=== PATIENT | female | born 1950 | race Two or more races ===

== ENCOUNTER 2020-01-16 07:00 | Outpatient (REF) | payer MEDICARE, SELFPAY ==
[2020-01-16 07:53] LABS: Hematocrit 35.6 % (37-47); Hemoglobin 11.5 g/dl (12.0-16.0); Mean Corpuscular HGB Conc 32.3 g/dl (31.0-35.0); Mean Corpuscular Hemoglobin 29.4 pg (27.0-33.0); Mean Platelet Volume 9.7 fL (9.4-12.3); Platelet Count 332 X10*3/uL (160-400); Red Blood Count 3.91 X10*6/uL (4.20-5.50); Red Cell Distribution Width 12.6 % (11.0-16.0); White Blood Count 6.6 X10*3/uL (4.8-10.8)
[2020-01-16 08:06] LABS: Estimated Average Glucose 128 mg/dL; Hemoglobin A1c % 6.1 %
[2020-01-16 08:23] LABS: Alanine Aminotransferase 12 U/L (0-31); Albumin Level 4.3 g/dL (3.5-5.0); Alkaline Phosphatase 65 U/L (39-117); Anion Gap 12 (12-20); Aspartate Amino Transferase 16 U/L (5-31); Bilirubin Total 0.8 mg/dL (0.0-1.0); Blood Urea Nitrogen 19 mg/dL (9-16); Calcium 8.9 mg/dL (8.4-10.2); Carbon Dioxide 23 mmol/L (22-29); Chloride 107 mmol/L (96-108); Cholesterol 165 mg/dL; Estimated Glomerular Filt Rate > 60; Glucose Fasting 107 mg/dL (60-99); HDL Cholesterol 43 mg/dL; LDL Cholesterol Calculated 101 mg/dl; Potassium 4.4 mmol/l (3.3-5.1); Sodium 138 mmol/L (135-145); Total Protein 7.4 g/dL (6.5-8.0); Triglycerides 106 mg/dL
[2020-01-16 10:11] LABS: Creatinine Urine 103.93 mg/dL; Microalbum/Creatinine Ratio Ur 12.5 ug/mg cr
== END 2020-01-16 07:01 | disposition home or self-care (01) ==
LOC: HO.LAB 07:00
PROVIDERS: Visit Provider Internal Medicine
DX: F32.9 Major depressive disorder, single episode, unspecified (principal); E55.9 Vitamin D deficiency, unspecified; I10 Essential (primary) hypertension; R73.9 Hyperglycemia, unspecified
CPT/HCPCS: 36415; 80053; 80061; 82043; 83036; 85027

== ENCOUNTER 2020-07-24 06:42 | Outpatient (REF) | payer MEDICARE, SELFPAY ==
[2020-07-24 07:50] LABS: Alanine Aminotransferase 14 U/L (0-31); Albumin Level 4.4 g/dL (3.5-5.0); Alkaline Phosphatase 69 U/L (39-117); Anion Gap 14 (12-20); Aspartate Amino Transferase 17 U/L (5-31); Bilirubin Total 0.9 mg/dL (0.0-1.0); Blood Urea Nitrogen 18 mg/dL (9-16); Calcium 9.5 mg/dL (8.4-10.2); Carbon Dioxide 22 mmol/L (22-29); Chloride 107 mmol/L (96-108); Cholesterol 179 mg/dL; Estimated Glomerular Filt Rate > 60; Glucose Fasting 118 mg/dL (60-99); HDL Cholesterol 51 mg/dL; LDL Cholesterol Calculated 109 mg/dl; Potassium 4.6 mmol/L (3.3-5.1); Sodium 138 mmol/L (135-145); Total Protein 7.6 g/dL (6.5-8.0); Triglycerides 99 mg/dL
[2020-07-24 08:14] LABS: Vitamin D 25-OH Total 33.7 ng/mL (>30)
[2020-07-24 08:45] LABS: Creatinine Urine 98.66 mg/dL; Microalbum/Creatinine Ratio Ur 12.1 ug/mg cr
[2020-07-24 10:32] LABS: Estimated Average Glucose 131 mg/dL; Hemoglobin A1c % 6.2 %
== END 2020-07-24 06:43 | disposition home or self-care (01) ==
LOC: HO.LAB 06:42
PROVIDERS: PCP Internal Medicine; Visit Provider Internal Medicine
DX: E55.9 Vitamin D deficiency, unspecified (principal); I10 Essential (primary) hypertension; R73.9 Hyperglycemia, unspecified
CPT/HCPCS: 36415; 80053; 80061; 82043; 82306; 83036

== ENCOUNTER 2020-11-02 07:48 | Outpatient (REF) | payer MEDICARE, SELFPAY ==
--- NOTE | ~2020-11-02 | MM_ITS ---
EXAMINATION: MM SCREENING DIGITAL BREAST TOMOSYNTHESIS, BILATERAL CLINICAL INFORMATION: Screening. Asymptomatic. The lifetime risk of breast cancer based on the Tyrer-Cuzick Model is 3%. COMPARISON: Mammography: 09/15/2019, 09/10/2018, 08/04/2017 TECHNIQUE: Digital breast tomosynthesis is performed in both the craniocaudal and mediolateral oblique views along with computer-aided detection (CAD). Synthesized 2D images are generated from the tomosynthesis. FINDINGS: There are scattered areas of fibroglandular density (ACR BI-RADS breast composition Category b). There are no significant masses, abnormal calcifications, or other abnormalities. Parenchymal pattern is similar to prior exams. No developing density. The axilla and skin contours are unremarkable. MM/MM tomosynthesis screening BI IMPRESSION: No mammographic evidence of malignancy. ASSESSMENT: BI-RADS 1: Negative RECOMMENDATION: Routine annual mammography screening. This patient's information was entered into a reminder system with a target due date for their next mammogram.
== END 2020-11-02 07:49 | disposition home or self-care (01) ==
LOC: HO.MAMMO 07:48
PROVIDERS: PCP Internal Medicine; Visit Provider Internal Medicine
DX: Z12.31 Encounter for screening mammogram for malignant neoplasm of breast (principal)
CPT/HCPCS: 77063; 77067

== ENCOUNTER 2020-11-21 11:36 | Outpatient (REF) | payer MEDICARE, SELFPAY ==
--- NOTE | ~2020-11-21 | XR_ITS ---
EXAMINATION: XR ANKLE, LEFT CLINICAL INFORMATION: M25.572 - Pain in left ankle and joints of left foot COMPARISON: None TECHNIQUE: AP, lateral, and mortise views of the left ankle. FINDINGS: There is no acute or healing fracture dislocation or destructive process. The malleoli appear intact and the ankle mortise is symmetric. The ankle joint shows no narrowing or erosive change. Talar dome shows no osteochondral lesion. There is a punctate corticated ossicle adjacent to the talonavicular region. Soft tissue swelling is present medial side just distal to the medial malleolus. The subtalar joint is not well visualized on lateral view, presumably related to positioning. The retrocalcaneal recess is preserved. There is a moderate plantar calcaneal spur. XR/XR ankle LT min 3V IMPRESSION: 1. Soft tissue swelling just distal to medial malleolus. No fracture, dislocation, or destructive process. 2. Plantar calcaneal spur.
== END 2020-11-21 11:37 | disposition home or self-care (01) ==
LOC: HO.HMGCX 11:36
PROVIDERS: PCP Internal Medicine; Visit Provider Internal Medicine
DX: Z13.89 Encounter for screening for other disorder (principal)
CPT/HCPCS: 73610

== ENCOUNTER → 2020-11-27 10:40 | Outpatient (BNVA) | payer MEDICARE, SELFPAY | PROVIDERS: Visit Provider Physician Assistant | DX: M25.571 Pain in right ankle and joints of right foot (principal); G89.29 Other chronic pain | CPT/HCPCS: 99202 ==

== ENCOUNTER 2020-12-11 07:10 | Outpatient (REF) | payer MEDICARE, SELFPAY ==
--- NOTE | ~2020-12-11 | XR_ITS ---
EXAMINATION: XR HAND, RIGHT CLINICAL INFORMATION: Pain COMPARISON: Right hand radiographs dated 02/18/2018. TECHNIQUE: PA, lateral, and oblique views of the right hand. FINDINGS: No acute fracture or dislocation. Mild joint space narrowing with tiny marginal osteophytes throughout the metacarpophalangeal and interphalangeal joints, unchanged. No new osseous erosion. Normal carpal alignment. No abnormal soft tissue calcification. XR/XR hand RT min 3V IMPRESSION: Minimal degenerative arthritis throughout the metacarpophalangeal and interphalangeal joints, unchanged.
== END 2020-12-11 07:11 | disposition home or self-care (01) ==
LOC: HO.HOSX 07:10
PROVIDERS: Visit Provider Physician Assistant
DX: M79.641 Pain in right hand (principal)
CPT/HCPCS: 73130

== ENCOUNTER → 2021-01-01 09:22 | Outpatient (BNVA) | payer MEDICARE, SELFPAY | PROVIDERS: PCP Internal Medicine; Visit Provider Physician Assistant | DX: M67.441 Ganglion, right hand (principal) | CPT/HCPCS: 99212 ==

== ENCOUNTER → 2021-01-15 08:40 | Outpatient (BNVA) | payer MEDICARE, SELFPAY | PROVIDERS: PCP Internal Medicine; Visit Provider Orthopaedic Surgery | DX: M18.12 Unilateral primary osteoarthritis of first carpometacarpal joint, left hand (principal) | CPT/HCPCS: 20600; 99212; J1020 ==

== ENCOUNTER 2021-01-28 06:06 | Day surgery (SDC) | payer MEDICARE, SELFPAY ==
[2021-01-18 09:25] VITALS: BMI 38.2
--- NOTE | 2021-01-22 15:29 | HO.ANESPROP2 ---
Documented by User: Kathi Campos NP 01/22/21 15:30 HPI - Anesthesia Eval Consult details Narrative: 70yo F for Right Middle Finger Ganglion Removal, A1 pully PMFSH Active Problems Active Problems: All Active Problems (Updated 01/15/21 @ 09:16 by Rupa Bowden MD) Osteoarthritis of carpometacarpal joint of left thumb (Acute) Ganglion cyst of finger of right hand (Acute) Chronic pain of right ankle (Acute) Dupuytren's contracture of right hand (Acute) Ankle pain, left (Acute) Venous insufficiency of both lower extremities (Acute) Vitamin D deficiency (Acute) HTN (hypertension) (Acute) Hyperglycemia (Acute) Sinusitis chronic, ethmoidal (Acute) Past Medical History Medical History Ankle pain, left Depression Diabetic eye exam Dupuytren's contracture of right hand Environmental and seasonal allergies Glaucoma History of mammogram HTN (hypertension) Hyperglycemia Osteoarthritis Prediabetes Venous insufficiency of both lower extremities Vitamin D deficiency Family History Family History Father Alzheimer's disease Dementia COPD (chronic obstructive pulmonary disease) HTN (hypertension) CVD (cardiovascular disease) Diabetes mellitus Mother Diabetes mellitus Liver cancer Maternal Grandfather No problems noted. Maternal Grandmother No problems noted. Paternal Grandfather No problems noted. Paternal Grandmother No problems noted. Brother No problems noted. Sister Diabetes mellitus Renal failure Sister No problems noted. Sister No problems noted. Sister No problems noted. Sister No problems noted. Son No problems noted. Son No problems noted. Son No problems noted. Daughter No problems noted. 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 Meds Allergies Allergy/AdvReac Type Severity Reaction Status Date / Time amoxicillin [AMOXICILLIN] Allergy Unknown RASH, Verified 01/18/21 09:23 allergy egg Allergy Unknown ITCHY Verified 01/18/21 09:23 THROAT/RASH Penicillins [PENICILLINS] Allergy Unknown RASH Verified 01/18/21 09:23 SHELLFISH Allergy Severe THROAT Uncoded 01/18/21 09:23 SWELLING Home Medications Medication Instructions Recorded Confirmed Last Taken Type albuterol sulfate 90 mcg/actuation 0 mcg INHALATION 12/20/19 11/21/20 Unknown History aerosol inhaler ibuprofen 800 mg tablet 800 mg PO TID PRN 12/20/19 01/18/21 Unknown History latanoprost 0.005 % eye drops 1 drp OPHTHALMIC-RIGHT BEDTIME 12/20/19 01/18/21 Unknown History latanoprost (PF) 0.005 % eye drops 1 drp OPHTHALMIC (EYE) DAILY 01/18/20 01/18/21 Unknown History timolol maleate 0.5 % eye drops 1 drp OPHTHALMIC-RIGHT QAM 01/18/20 01/18/21 Unknown History Exam Exam Date and Time: January 22, 2021 1529 Height,Weight and Vital Signs: Height 5 ft 3 in Weight 97.976 kg Pertinent Lab Results Pertinent Lab Results: Laboratory Tests 01/16/20 07/24/20 07:29 06:50 WBC 6.6 Hgb 11.5 L Hct 35.6 L Plt Count 332 Sodium 138 Potassium 4.6 Chloride 107 Carbon Dioxide 22 BUN 18 H Creatinine 0.92 Assessment and Plan Assessment Anesthesia Assessment: Chart Reviewed Documented by User: Melany Mccormick MD 01/28/21 07:52 [facility] Past Medical History Medical History Ankle pain, left Depression Diabetic eye exam Dupuytren's contracture of right hand Environmental and seasonal allergies Glaucoma History of mammogram HTN (hypertension) Hyperglycemia Osteoarthritis Prediabetes Venous insufficiency of both lower extremities Vitamin D deficiency Family History Family History Father Alzheimer's disease Dementia COPD (chronic obstructive pulmonary disease) HTN (hypertension) CVD (cardiovascular disease) Diabetes mellitus Mother Diabetes mellitus Liver cancer Maternal Grandfather No problems noted. Maternal Grandmother No problems noted. Paternal Grandfather No problems noted. Paternal Grandmother No problems noted. Brother No problems noted. Sister Diabetes mellitus Renal failure Sister No problems noted. Sister No problems noted. Sister No problems noted. Sister No problems noted. Son No problems noted. Son No problems noted. Son No problems noted. Daughter No problems noted. Family history of problems with anesthesia: No Surgical History Surgical History H/O colonoscopy History of laparoscopic cholecystectomy History of prior ablation treatment History of surgery History of Problems with Anesthesia: No Social History Social History Housing: House Alcohol intake: current Alcohol intake frequency: holidays/special occasions only Patient Tobacco Use Status: Never used Tobacco e-Cigarette/Vaping Use: Never Used Use of substances other than those prescribed or required for medical reasons: No Are you DNR?: No Advance Directives: No Advance Directives Information Provided: Yes Advance Directives on File: No Current occupational status: 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 Meds Allergies Allergy/AdvReac Type Severity Reaction Status Date / Time amoxicillin [AMOXICILLIN] Allergy Unknown RASH, Verified 01/18/21 09:23 allergy egg Allergy Unknown ITCHY Verified 01/18/21 09:23 THROAT/RASH Penicillins [PENICILLINS] Allergy Unknown RASH Verified 01/18/21 09:23 SHELLFISH Allergy Severe THROAT Uncoded 01/18/21 09:23 SWELLING Home Medications Medication Instructions Recorded Confirmed Last Taken Type albuterol sulfate 90 mcg/actuation 0 mcg INHALATION 12/20/19 11/21/20 Unknown History aerosol inhaler ibuprofen 800 mg tablet 800 mg PO TID PRN 12/20/19 01/18/21 Unknown History latanoprost 0.005 % eye drops 1 drp OPHTHALMIC-RIGHT BEDTIME 12/20/19 01/18/21 Unknown History latanoprost (PF) 0.005 % eye drops 1 drp OPHTHALMIC (EYE) DAILY 01/18/20 01/18/21 Unknown History timolol maleate 0.5 % eye drops 1 drp OPHTHALMIC-RIGHT QAM 01/18/20 01/18/21 Unknown History Exam Height,Weight and Vital Signs: Height 5 ft 3 in Weight 97.976 kg Vital Signs Temp Pulse Resp BP Pulse Ox 01/28/21 06:35 97.8 F 60 16 135/66 98 Airway Mallampati Class: II TM Dist: >3cm Neck ROM: Full Partial: Upper Heart: RRR Lungs: CTAB Assessment and Plan Assessment Anesthesia Assessment: Anesthesia Plan Discussed Final Anesthetic Review Family History of Problems with Anesthesia: No History of Problems with Anesthesia: No NPO: Yes ASA Class: II Final Preanesthetic Review: No Changes in Pt Med Stat, Meds/Allgs Chart Reviewed, Consent Obtained/Reviewed and Anes Risks/Benef Reviewed Patient Risk: Low Procedure Risk: Low Assessment/Block/Sedation in SS: Assess/Block/Sedation-SS Anesthetic Plan Anesthetic Plan: GA Disposition: Standard PACU
[2021-01-28 06:35] VITALS: BP 135/66; PULSE 60; RESP 16; TEMP 36.6; O2SAT 98
[2021-01-28] MEDS: Lactated Ringers 1,000 ML 100 ML IVCONT (06:39)
--- NOTE | 2021-01-28 06:43 | PC.NURSE ---
Last dose of Ibuprofen 1 week ago
--- NOTE | 2021-01-28 07:41 | MHC.SHP ---
Pre-Procedural Eval Section A Date of Service: 01/28/21 The patient is an INPATIENT: No Changes since office visit: No Cold of Flu in the past 2 weeks, No New Medical Problems, No Changes in Medication and No Patient answered all questions The History & Physical has been completed within 30 days and I have reviewed it.: Yes Section B Chief Complaint: ganglion right hand Allergies: Allergies Allergy/AdvReac Type Severity Reaction Status Date / Time amoxicillin [AMOXICILLIN] Allergy Unknown RASH, Verified 01/18/21 09:23 allergy egg Allergy Unknown ITCHY Verified 01/18/21 09:23 THROAT/RASH Penicillins [PENICILLINS] Allergy Unknown RASH Verified 01/18/21 09:23 SHELLFISH Allergy Severe THROAT Uncoded 01/18/21 09:23 SWELLING Plan I have reviewed the history and physical and performed a pertinent physical examination on my patient. No changes have occurred unless specified.
--- NOTE | 2021-01-28 07:42 | W.PM.OPN ---
Operative Note Operative Note Date of Service: 01/28/21 Narrative: Operative Note Narrative: Preop diagnosis: 1. Right hand mass over A1 vincenzo of right middle finger Postop diagnosis: Same Procedure: right hand mass excisional biopsy Surgeon: Rupa Bowden MD Anesthesia: General Findings: 8 mm x 4 mm diameter white soft tissue mass removed from A1 vincenzo of right middle finger Implants: none Tourniquet time: 6 minutes EBL: 5.0 ml Specimen: right hand mass sent for histopathology Drains: None Complications: None Disposition: Brought to the recovery room in stable condition Plan: Follow-up in 10-14 days for wound check, suture removal and to check pathology Indications: The patient is a 70 year old woman with a mass over the right middle finger A1 vincenzo . The risks and benefits of operative treatment, including but not limited to risk of damage to blood vessels, nerves, tendons, infection, recurrence, persistent pain or numbness, incomplete resolution of preoperative symptoms, or need for further surgery were discussed with the patient and they wished to proceed with surgery. Procedure: Once consent was obtained patient was brought back to the operating suite and placed in the operating table in a supine position. Anesthesia was administered by the anesthesia team. A tourniquet was applied to the proximal aspect of the right upper extremity and the limb was prepped and draped in a standard surgical fashion. The limb was elevated exsanguinated with Esmarch bandage and the tourniquet inflated to 250 mm of mercury for a total tourniquet time of 6 minutes. I made a 1.5 cm oblique incision centered over the mass over the A1 vincenzo of the right middle finger. The incision was made through the skin the subcutaneous tissues using a 15. Blade. I then carefully dissected down to the level of the mass using tenotomy scissors. The mass was white and somewhat oval-shaped, about 8 mm in length by about 4 mm in diameter an attached to the A1 vincenzo of the right middle finger. It was dissected free from the A1 vincenzo placed on the back table and sent for histopathology. No further masses were appreciated. At this point the tourniquet was deflated and hemostasis obtained with a brief period of local pressure . The wound was copiously irrigated with normal saline. The subcutaneous layer was closed with 4-0 Vicryl suture, and the skin edges were reapproximated with 5-0 nylon suture. The wound was infiltrated with some 1% lidocaine with epinephrine for postop pain control and a sterile dressing was applied. The patient appears to have tolerated the procedure well and with no complications. All digits were well vascularized conclusion of the case.
[2021-01-28 08:25] VITALS: BP 144/64; PULSE 69; RESP 16; TEMP 36.4; O2SAT 95
[2021-01-28 08:30] VITALS: BP 138/60; PULSE 60; RESP 15; O2SAT 93
[2021-01-28 08:35] VITALS: BP 134/60; PULSE 60; RESP 16; O2SAT 93
[2021-01-28 08:40] VITALS: BP 139/81; PULSE 59; RESP 16; O2SAT 96
[2021-01-28 08:55] VITALS: BP 130/97; PULSE 62; RESP 16; TEMP 36.4; O2SAT 99
== END 2021-01-28 09:35 | disposition home or self-care (01) ==
PROVIDERS: PCP Internal Medicine; Visit Provider Orthopaedic Surgery
PROC: (CPT 26160; principal; 2021-01-28 07:30)
DX: M67.441 Ganglion, right hand (principal); I10 Essential (primary) hypertension; R73.03 Prediabetes; E55.9 Vitamin D deficiency, unspecified; Z79.899 Other long term (current) drug therapy; Z88.0 Allergy status to penicillin
CPT/HCPCS: 26160; 88304; J2405; J3010

== ENCOUNTER → 2021-02-12 08:52 | Outpatient (BNVA) | payer MEDICARE, SELFPAY | PROVIDERS: PCP Internal Medicine; Visit Provider Orthopaedic Surgery | DX: M67.441 Ganglion, right hand (principal) | CPT/HCPCS: 99212 ==

== ENCOUNTER 2021-05-24 06:26 | Outpatient (REF) | payer OTHER, SELFPAY ==
[2021-05-24 07:26] LABS: Hematocrit 37.4 % (37.0-47.0); Hemoglobin 11.7 g/dl (12.0-16.0); Mean Corpuscular HGB Conc 31.3 g/dl (31.0-35.0); Mean Corpuscular Volume 92.8 fL (80.0-98.0); Mean Platelet Volume 9.9 fL (9.4-12.3); Platelet Count 354 X10*3/uL (160-400); Red Blood Count 4.03 X10*6/uL (4.20-5.50); Red Cell Distribution Width 12.9 % (11.0-16.0); White Blood Count 7.8 X10*3/uL (4.8-10.8)
[2021-05-24 07:42] LABS: Estimated Average Glucose 123 mg/dL; Hemoglobin A1c % 5.9 %
[2021-05-24 07:57] LABS: Alanine Aminotransferase 15 U/L (0-31); Albumin Level 4.2 g/dL (3.5-5.0); Alkaline Phosphatase 69 U/L (39-117); Anion Gap 12 (12-20); Aspartate Amino Transferase 18 U/L (5-31); Bilirubin Total 1.1 mg/dL (0.0-1.0); Blood Urea Nitrogen 16 mg/dL (9-16); Calcium 9.5 mg/dL (8.4-10.2); Carbon Dioxide 26 mmol/L (22-29); Chloride 106 mmol/L (96-108); Estimated Glomerular Filt Rate 58; Glucose Fasting 113 mg/dL (60-99); Potassium 4.5 mmol/L (3.3-5.1); Sodium 139 mmol/L (135-145); Total Protein 7.6 g/dL (6.5-8.0)
== END 2021-05-24 06:27 | disposition home or self-care (01) ==
LOC: HO.LAB 06:26
PROVIDERS: PCP Internal Medicine; Visit Provider Internal Medicine
DX: I10 Essential (primary) hypertension (principal); I87.2 Venous insufficiency (chronic) (peripheral); R73.9 Hyperglycemia, unspecified
CPT/HCPCS: 36415; 80053; 83036; 85027

== ENCOUNTER 2021-11-05 08:39 | Outpatient (REF) | payer OTHER, SELFPAY ==
--- NOTE | ~2021-11-05 | MM_ITS ---
EXAMINATION: MM SCREENING DIGITAL BREAST TOMOSYNTHESIS, BILATERAL CLINICAL INFORMATION: Screening. Asymptomatic. The lifetime risk of breast cancer based on the Tyrer-Cuzick Model is 3%. COMPARISON: Mammography: 11/02/2020, 09/15/2019, 09/10/2018 TECHNIQUE: Digital breast tomosynthesis is performed in both the craniocaudal and mediolateral oblique views along with computer-aided detection (CAD). Synthesized 2D images are generated from the tomosynthesis. FINDINGS: There are scattered areas of fibroglandular density (ACR BI-RADS breast composition Category b). There are no significant masses, abnormal calcifications, or other abnormalities. Parenchymal pattern is similar to prior exams. The axilla and skin contours are unremarkable. No significant changes. MM/MM tomosynthesis screening BI IMPRESSION: No mammographic evidence of malignancy. ASSESSMENT: BI-RADS 1: Negative RECOMMENDATION: Routine annual mammography screening. This patient's information was entered into a reminder system with a target due date for their next mammogram.
== END 2021-11-05 08:40 | disposition home or self-care (01) ==
LOC: HO.MAMMO 08:39
PROVIDERS: PCP Internal Medicine; Visit Provider Internal Medicine
DX: Z12.31 Encounter for screening mammogram for malignant neoplasm of breast (principal)
CPT/HCPCS: 77063; 77067

== ENCOUNTER 2021-11-25 06:19 | Day surgery (SDC) | payer OTHER, SELFPAY ==
[2021-11-20 14:54] VITALS: BMI 37.2
--- NOTE | 2021-11-22 12:51 | HO.ANESPROP2 ---
Documented by User: Kathi Campos NP 11/22/21 12:57 HPI - Anesthesia Eval Consult details Narrative: 71yo F for Colonoscopy PMFSH Active Problems Active Problems: All Active Problems (Updated 09/11/21 @ 09:14 by Qamar Cartwright MD) Recurrent upper respiratory tract infection (Acute) Annual physical exam (Acute) Osteoarthritis of carpometacarpal joint of left thumb (Acute) Ganglion cyst of finger of right hand (Acute) Chronic pain of right ankle (Acute) Dupuytren's contracture of right hand (Acute) Ankle pain, left (Acute) Venous insufficiency of both lower extremities (Acute) Vitamin D deficiency (Acute) HTN (hypertension) (Acute) Hyperglycemia (Acute) Sinusitis chronic, ethmoidal (Acute) Past Medical History Medical History Ankle pain, left Annual physical exam Depression Diabetic eye exam Dupuytren's contracture of right hand Environmental and seasonal allergies Glaucoma History of mammogram HTN (hypertension) Hyperglycemia Osteoarthritis Prediabetes Venous insufficiency of both lower extremities Vitamin D deficiency Family History Family History Father Alzheimer's disease Dementia COPD (chronic obstructive pulmonary disease) HTN (hypertension) CVD (cardiovascular disease) Diabetes mellitus Mother Diabetes mellitus Liver cancer Maternal Grandfather No problems noted. Maternal Grandmother No problems noted. Paternal Grandfather No problems noted. Paternal Grandmother No problems noted. Brother No problems noted. Sister Diabetes mellitus Renal failure Sister No problems noted. Sister No problems noted. Sister No problems noted. Sister No problems noted. Son No problems noted. Son No problems noted. Son No problems noted. Daughter No problems noted. Family history of problems with anesthesia: No Surgical History Surgical History H/O colonoscopy History of laparoscopic cholecystectomy History of prior ablation treatment History of surgery History of Problems with Anesthesia: No Social History Social History Housing: House Alcohol intake: current Alcohol intake frequency: does not drink Patient Tobacco Use Status: Never used Tobacco e-Cigarette/Vaping Use: Never Used Second Hand Smoke Exposure: No Use of substances other than those prescribed or required for medical reasons: No Are you DNR?: No Advance Directives: No Advance Directives Information Provided: Yes Advance Directives on File: No Current occupational status: 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 Cognitive needs: No Hearing needs: No Vision needs: No Meds Allergies Allergy/AdvReac Type Severity Reaction Status Date / Time amoxicillin [AMOXICILLIN] Allergy Unknown RASH, Verified 09/11/21 08:45 allergy egg Allergy Unknown ITCHY Verified 09/11/21 08:45 THROAT/RASH Penicillins [PENICILLINS] Allergy Unknown RASH Verified 09/11/21 08:45 SHELLFISH Allergy Severe THROAT Uncoded 09/11/21 08:45 SWELLING Home Medications Medication Instructions Recorded Confirmed Last Taken Type ibuprofen 800 mg tablet 800 mg PO TID PRN Pain 12/20/19 01/18/21 Unknown History latanoprost (PF) 0.005 % eye drops 1 drp ophthalmic (eye) DAILY 01/18/20 01/18/21 Unknown History timolol maleate 0.5 % eye drops 1 drp ophthalmic-Right QAM 01/18/20 01/18/21 Unknown History Exam Exam Date and Time: November 22, 2021 1251 Height,Weight and Vital Signs: Height 5 ft 4 in Weight 98.43 kg Pertinent Lab Results Pertinent Lab Results: Laboratory Tests 05/24/21 05/24/21 06:38 06:38 WBC 7.8 Hgb 11.7 L Hct 37.4 Plt Count 354 Sodium 139 Potassium 4.5 Chloride 106 Carbon Dioxide 26 BUN 16 Creatinine 0.95 Assessment and Plan Assessment Anesthesia Assessment: Chart Reviewed Final Anesthetic Review Family History of Problems with Anesthesia: No History of Problems with Anesthesia: No Documented by User: Dex Murry MD 11/25/21 07:30 [facility] Past Medical History Medical History Ankle pain, left Annual physical exam Depression Diabetic eye exam Dupuytren's contracture of right hand Environmental and seasonal allergies Glaucoma History of mammogram HTN (hypertension) Hyperglycemia Osteoarthritis Prediabetes Venous insufficiency of both lower extremities Vitamin D deficiency Family History Family History Father Alzheimer's disease Dementia COPD (chronic obstructive pulmonary disease) HTN (hypertension) CVD (cardiovascular disease) Diabetes mellitus Mother Diabetes mellitus Liver cancer Maternal Grandfather No problems noted. Maternal Grandmother No problems noted. Paternal Grandfather No problems noted. Paternal Grandmother No problems noted. Brother No problems noted. Sister Diabetes mellitus Renal failure Sister No problems noted. Sister No problems noted. Sister No problems noted. Sister No problems noted. Son No problems noted. Son No problems noted. Son No problems noted. Daughter No problems noted. 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 Cognitive needs: No Hearing needs: No Vision needs: No Meds Allergies Allergy/AdvReac Type Severity Reaction Status Date / Time amoxicillin [AMOXICILLIN] Allergy Unknown RASH, Verified 09/11/21 08:45 allergy egg Allergy Unknown ITCHY Verified 09/11/21 08:45 THROAT/RASH Penicillins [PENICILLINS] Allergy Unknown RASH Verified 09/11/21 08:45 SHELLFISH Allergy Severe THROAT Uncoded 09/11/21 08:45 SWELLING Home Medications Medication Instructions Recorded Confirmed Last Taken Type ibuprofen 800 mg tablet 800 mg PO TID PRN Pain 12/20/19 01/18/21 Unknown History latanoprost (PF) 0.005 % eye drops 1 drp ophthalmic (eye) DAILY 01/18/20 01/18/21 Unknown History timolol maleate 0.5 % eye drops 1 drp ophthalmic-Right QAM 01/18/20 01/18/21 Unknown History Exam Airway Mallampati Class: II TM Dist: >3cm Neck ROM: Full Partial: Upper Heart: rrr Lungs: clear Assessment and Plan Final Anesthetic Review NPO: Yes ASA Class: II Final Preanesthetic Review: No Changes in Pt Med Stat, Meds/Allgs Chart Reviewed, Consent Obtained/Reviewed and Anes Risks/Benef Reviewed Patient Risk: Intermediate Procedure Risk: Low Anesthetic Plan Anesthetic Plan: MAC: Disposition: Standard PACU
[2021-11-25 06:44] VITALS: BP 154/71; PULSE 63; RESP 16; TEMP 36.4; O2SAT 97
[2021-11-25] MEDS: Lactated Ringers 1,000 ML 100 ML IVCONT (06:52)
[2021-11-25 08:25] VITALS: BP 118/62; PULSE 51; RESP 16; TEMP 36.1; O2SAT 96
--- NOTE | 2021-11-25 08:28 | PM.OP ---
Brief Operative Note Date of Service: 11/25/21 Pre-op diagnosis: Screening Post-op diagnosis: other (Diverticulosis) Procedure: Colonoscopy to the cecum Surgeon: Moose Ravi Anesthesia: MAC Was an Mobile Home Set Up Person used for this Procedure?: No Estimated blood loss (mL): 0 Pathology: none sent Condition: stable Disposition: PACU
[2021-11-25 08:40] VITALS: BP 159/76; PULSE 50; RESP 16; TEMP 36.7; O2SAT 99
--- NOTE | 2021-11-25 09:02 | OP_ITS ---
SURGEON: Moose Ravi MD INDICATIONS: The patient presents for evaluation of colorectal cancer screening. Full consent has been obtained her for this, including risks of bleeding and perforation. PREOPERATIVE DIAGNOSIS: Colorectal cancer screening. POSTOPERATIVE DIAGNOSIS: PROCEDURE PERFORMED: Colonoscopy to cecum. ESTIMATED BLOOD LOSS: COMPLICATIONS: ANESTHESIA: Monitored anesthesia care. ASSISTANTS: SPECIMENS: POSTOPERATIVE DIAGNOSES: Colorectal cancer screening, diverticulosis, and internal hemorrhoids. DESCRIPTION OF PROCEDURE: The patient was placed in the left lateral decubitus position. The digital rectal exam revealed no abnormalities. The Olympus video pediatric colonoscope was entered into the rectum and advanced easily to the cecum. Once in the cecum, I did identify normal-appearing cecal pouch with appendiceal orifice a normal-appearing ileocecal valve. The entire cecum and ileocecal valve appeared normal. There was transillumination of light deep in the right lower quadrant. The scope was slowly withdrawn assessing all mucosal surfaces carefully. Preparation was excellent. I did not visualize any sign of polyps, colitis, nor angiodysplasia. There was a mild amount of sigmoid diverticulosis. In the rectum, the scope was retroflexed visualizing small internal hemorrhoids, but no other pathology. The rectal mucosa appeared normal. The scope was straightened and withdrawn from the patient. She tolerated the procedure well and was returned to recovery area in stable condition. IMPRESSION: 1. Sigmoid diverticulosis. 2. Internal hemorrhoids. PLAN: Given the negative exam and her age and negative family history of colon cancer, I do not think she will need any further screening colonoscopies. She will see me on a p.r.n. basis. MD KULDIP Gutierrez/MODL / [phone]
== END 2021-11-25 09:00 | disposition home or self-care (01) ==
PROVIDERS: PCP Internal Medicine; Visit Provider Internal Medicine
PROC: 0DJD8ZZ Inspection of Lower Intestinal Tract, Via Natural or Artificial Opening Endoscopic (ICD-10-PCS; CPT 45378; principal; 2021-11-25 07:30)
DX: Z12.11 Encounter for screening for malignant neoplasm of colon (principal); K57.30 Diverticulosis of large intestine without perforation or abscess without bleeding; K64.8 Other hemorrhoids; J45.909 Unspecified asthma, uncomplicated; I10 Essential (primary) hypertension; F32.A Depression, unspecified; Z79.899 Other long term (current) drug therapy; Z88.0 Allergy status to penicillin; Z88.1 Allergy status to other antibiotic agents; Z90.49 Acquired absence of other specified parts of digestive tract
CPT/HCPCS: G0121

== ENCOUNTER 2021-11-27 06:20 | Outpatient (REF) | payer OTHER, SELFPAY ==
[2021-11-27 07:46] LABS: Estimated Average Glucose 128 mg/dL; Hemoglobin A1c % 6.1 %
[2021-11-27 07:58] LABS: Alanine Aminotransferase 13 U/L (0-31); Albumin Level 4.3 g/dL (3.5-5.0); Alkaline Phosphatase 66 U/L (39-117); Anion Gap 15 (12-20); Aspartate Amino Transferase 17 U/L (5-31); Bilirubin Total 0.8 mg/dL (0.0-1.0); Blood Urea Nitrogen 18 mg/dL (9-16); Calcium 9.5 mg/dL (8.4-10.2); Carbon Dioxide 21 mmol/L (22-29); Chloride 107 mmol/L (96-108); Cholesterol 165 mg/dL; Estimated Glomerular Filt Rate 59; Glucose Fasting 108 mg/dL (60-99); HDL Cholesterol 43 mg/dL; LDL Cholesterol Calculated 106 mg/dl; Potassium 4.3 mmol/L (3.3-5.1); Sodium 139 mmol/L (135-145); Total Protein 7.5 g/dL (6.5-8.0); Triglycerides 82 mg/dL
== END 2021-11-27 06:21 | disposition home or self-care (01) ==
LOC: HO.LAB 06:20
PROVIDERS: PCP Internal Medicine; Visit Provider Internal Medicine
DX: E55.9 Vitamin D deficiency, unspecified (principal); I10 Essential (primary) hypertension; R73.9 Hyperglycemia, unspecified
CPT/HCPCS: 36415; 80053; 80061; 83036

== ENCOUNTER 2022-05-23 06:48 | Outpatient (REF) | payer OTHER, SELFPAY ==
[2022-05-23 07:00] LABS: MANUAL DIFF FLAG NO
[2022-05-23 07:29] LABS: Basophils Percent Auto 0.6 % (0-2); Eosinophils Absolute Auto 0.2 X10*3/uL (0.0-0.4); Eosinophils Percent Auto 3.5 % (0-4); Hematocrit 37.5 % (37.0-47.0); Hemoglobin 12.1 g/dl (12.0-16.0); Imm Gran Abs Auto 0.01 X10*3/uL (0.00-0.03); Imm Gran Pct Auto 0.2 % (0.0-0.4); Lymphocytes Absolute Auto 2.5 X10*3/uL (1.2-4.9); Lymphocytes Percent Auto 37.7 % (20-40); Mean Corpuscular HGB Conc 32.3 g/dl (31.0-35.0); Mean Corpuscular Hemoglobin 29.5 pg (27.0-33.0); Mean Corpuscular Volume 91.5 fL (80.0-98.0); Mean Platelet Volume 9.8 fL (9.4-12.3); Monocytes Absolute Auto 0.5 X10*3/uL (0.1-1.2); Monocytes Percent Auto 8.1 % (2-11); Neutrophils Absolute Auto 3.3 x10*3/uL (2.0-8.3); Neutrophils Percent Auto 49.9 % (45-73); Platelet Count 363 X10*3/uL (160-400); Red Cell Distribution Width 13.2 % (11.0-16.0); White Blood Count 6.6 X10*3/uL (4.8-10.8)
[2022-05-23 07:48] LABS: Estimated Average Glucose 131 mg/dL; Hemoglobin A1C 135.9943 umol/L; Hemoglobin A1c % 6.2 %
[2022-05-23 07:58] LABS: Alanine Aminotransferase 12 U/L (0-31); Albumin Level 4.3 g/dL (3.5-5.0); Alkaline Phosphatase 70 U/L (39-117); Anion Gap 16 (12-20); Aspartate Amino Transferase 18 U/L (5-31); Bilirubin Total 0.8 mg/dL (0.0-1.0); Blood Urea Nitrogen 22 mg/dL (9-16); Calcium 9.4 mg/dL (8.4-10.2); Carbon Dioxide 21 mmol/L (22-29); Chloride 106 mmol/L (96-108); Estimated Glomerular Filt Rate 49; Glucose Fasting 128 mg/dL (60-99); Potassium 4.7 mmol/L (3.3-5.1); Sodium 138 mmol/L (135-145); Total Protein 7.6 g/dL (6.5-8.0)
== END 2022-05-23 06:49 | disposition home or self-care (01) ==
LOC: HO.LAB 06:48
PROVIDERS: PCP Internal Medicine; Visit Provider Internal Medicine
DX: I10 Essential (primary) hypertension (principal); R73.9 Hyperglycemia, unspecified; E66.3 Overweight
CPT/HCPCS: 36415; 80053; 83036; 85025

== ENCOUNTER 2022-05-29 09:08 | Outpatient (REF) | payer OTHER, SELFPAY ==
[2022-05-29 11:30] LABS: Appearance Urine Clear; Color Urine Yellow; Glucose Urine UA Negative (Negative); Leukocyte Esterase Urine Trace (Negative); Nitrite Urine Negative (Negative); PH 6.5 (5.0-9.0); Specific Gravity - Urine <= 1.005 (1.005-1.025); UMIC TRIGGER UA YES; Urine Blood Trace (Negative); Urine Ketones Negative (Negative); Urine Protein Negative (Neg-Trace)
[2022-05-29 11:34] LABS: Bacteria Urine None Seen (None Seen); Hyaline Casts Urine 0-2 /LPF (0-2); RBC Urine 0-2 /HPF (0-2); Squamous Epithelial Cell Urine 0-2 /HPF (0-2); WBC Urine 0-5 /HPF (0-5)
== END 2022-05-29 09:09 | disposition home or self-care (01) ==
LOC: HO.HMGCLDS 09:08
PROVIDERS: PCP Internal Medicine; Visit Provider Internal Medicine
DX: N39.0 Urinary tract infection, site not specified (principal)
CPT/HCPCS: 81001; 87086; 87147

== ENCOUNTER 2022-06-29 08:40 | Emergency (ER) | payer OTHER, SELFPAY ==
--- NOTE | ~2022-06-29 | XR_ITS ---
EXAMINATION: XR CHEST CLINICAL INFORMATION: Chest pain COMPARISON: None available. TECHNIQUE: 2 views of the chest were obtained. FINDINGS: Cardiac silhouette is normal in size. Lungs are well aerated. There is no lobar consolidation. No pleural effusion or pneumothorax. No acute osseous abnormality. XR/XR chest 2V IMPRESSION: No acute pulmonary pathology.
--- NOTE | 2022-06-29 08:00 | ECG_ITS ---
Test Reason : TACHYCARDIA Blood Pressure : / mmHG Vent. Rate : 068 BPM Atrial Rate : 068 BPM P-R Int : 172 ms QRS Dur : 082 ms QT Int : 394 ms P-R-T Axes : 033 013 038 degrees QTc Int : 418 ms Normal sinus rhythm Normal ECG When compared with ECG of 29-JUN-2022 08:43, Sinus rhythm has replaced Atrial fibrillation Vent. rate has decreased BY [address] no longer depressed in Inferior leads ST no longer depressed in Anterolateral leads Referred By: Divya Gavin Electronically Signed By:RAMSEY TOLENTINO MD
--- NOTE | 2022-06-29 08:41 | ECG_ITS ---
Test Reason : CHEST PAIN Blood Pressure : / mmHG Vent. Rate : 139 BPM Atrial Rate : 000 BPM P-R Int : 000 ms QRS Dur : 082 ms QT Int : 260 ms P-R-T Axes : 000 028 039 degrees QTc Int : 395 ms Atrial fibrillation with rapid ventricular response Nonspecific ST abnormality Abnormal ECG No previous ECGs available Referred By: Generic ED Physician Electronically Signed By:RAMSEY TOLENTINO MD
[2022-06-29 09:07] VITALS: BP 179/10; PULSE 131; RESP 16; TEMP 36.1; O2SAT 97; BMI 37.2
--- NOTE | 2022-06-29 09:13 | ED.GENADULT ---
HPI - General Adult General Chief complaint: General Medical Stated complaint: high bp/ chest pain Time Seen by Provider: 06/29/22 09:04 Source: patient Mode of arrival: ambulatory Limitations: no limitations History of Present Illness HPI narrative: A 72-year-old female history of hypertension came in for evaluation of palpitation and chest heaviness and lightheadedness. Patient walked to the emergency department found to be in rapid atrial fibrillation with no history of AFib, while patient in the emergency department patient self converted with no intervention to normal sinus rhythm. Patient's symptoms improved. Related Data Home Medications Medication Instructions Recorded Confirmed ibuprofen 800 mg tablet 800 mg PO TID PRN Pain 12/20/19 05/29/22 latanoprost (PF) 0.005 % eye drops 1 drp ophthalmic (eye) DAILY 01/18/20 05/29/22 timolol maleate 0.5 % eye drops 1 drp ophthalmic-Right QAM 01/18/20 05/29/22 Previous Rx's Medication Instructions Recorded foot care products #2 ea 11/27/20 miscellaneous medical supply 2 ea miscellaneous ONCE custom 12/14/20 molded shoe insert for bilat foot pronaion #2 ea albuterol sulfate 90 mcg/actuation 2 puff inhalation Q8H #8.5 grams 10/18/21 aerosol inhaler blood sugar diagnostic (OneTouch #100 ea 11/29/21 Ultra Test strips) blood-glucose meter (OneTouch #1 ea 11/29/21 Ultra2 Meter) olmesartan 20 mg tablet 20 mg PO DAILY #90 tabs 01/24/22 cholecalciferol (vitamin D3) 25 50 mcg PO DAILY 90 days #180 caps 02/28/22 mcg (1,000 unit) capsule sertraline 25 mg tablet 25 mg PO DAILY #90 tabs 05/26/22 azithromycin 250 mg tablet 250 mg PO DAILY 6 days #6 tabs 06/04/22 apixaban 5 mg tablet 5 mg PO BID #30 tabs 06/29/22 metoprolol succinate 25 mg 12.5 mg PO DAILY #20 tabs 06/29/22 tablet,extended release 24 hr (Toprol XL) Allergies Allergy/AdvReac Type Severity Reaction Status Date / Time amoxicillin [AMOXICILLIN] Allergy Unknown RASH, Verified 05/29/22 08:24 allergy egg Allergy Unknown ITCHY Verified 05/29/22 08:24 THROAT/RASH Penicillins [PENICILLINS] Allergy Unknown RASH Verified 05/29/22 08:24 SHELLFISH Allergy Severe THROAT Uncoded 05/29/22 08:24 SWELLING Review of Systems Review of Systems: All other systems are reviewed and are negative Constitutional: Reports as per HPI and Reports no additional constitutional complaints Eyes: Reports as per HPI and Reports no additional eye complaints Reports system reviewed and no additional complaints, except as documented Cardiovascular: Reports as per HPI and Reports no additional cardiovascular complaints Respiratory: Reports as per HPI and Reports no additional respiratory complaints Gastrointestinal: Reports as per HPI and Reports no additional gastrointestinal complaints Genitourinary: Reports no additional female genitourinary complaints Musculoskeletal: Reports no additional musculoskeletal complaints Skin/Breast: Reports system reviewed and no additional complaints, except as docu Psychiatric: Reports no additional psychiatric complaints Endocrine: Reports no additional endocrine complaints Hematologic/Lymphatic: Reports no additional hematologic/lymphatic complaints Allergic/Immunologic: Reports no additional allergic/immunologic complaints Reports system reviewed and no additional complaints, except as documented and Reports Abnormal speech present FOR[facility]LY [facility] Past Medical History Medical History Ankle pain, left Annual physical exam Depression Diabetic eye exam Dupuytren's contracture of right hand Environmental and seasonal allergies Glaucoma History of mammogram HTN (hypertension) Hyperglycemia Osteoarthritis Prediabetes Venous insufficiency of both lower extremities Vitamin D deficiency Surgical History H/O colonoscopy History of laparoscopic cholecystectomy History of prior ablation treatment History of surgery Family History Family History Father Alzheimer's disease Dementia COPD (chronic obstructive pulmonary disease) HTN (hypertension) CVD (cardiovascular disease) Diabetes mellitus Mother Diabetes mellitus Liver cancer Maternal Grandfather No problems noted. Maternal Grandmother No problems noted. Paternal Grandfather No problems noted. Paternal Grandmother No problems noted. Brother No problems noted. Sister Diabetes mellitus Renal failure Sister No problems noted. Sister No problems noted. Sister No problems noted. Sister No problems noted. Son No problems noted. Son No problems noted. Son No problems noted. Daughter No problems noted. 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 Blood pressure normal. Heart rate elevated. Respiration rate normal. Temperature normal. Oxygen saturation normal. Appearance: Alert. Oriented X3. No acute distress. Head: Normal external exam. Normocephalic. Atraumatic. No Riley signs noted. No raccoon eyes noted Eyes: PERRLA. EOMI. Conjunctiva and sclera normal. Eyelids normal. ENT: TM's Normal. Pharynx normal. Uvula midline. Moist mucous membranes. No trismus noted. No drooling noted. No muffled voice noted. Neck: Normal inspection. Neck supple. FROM. No adenopathy. Thyroid Normal. No meningeal signs. No neck mass noted. CVS: Normal heart rate and rhythm. Heart sound normal. No murmurs noted. Pulses normal throughout. Respiratory: No respiratory distress. Painless inspiration. Breath sounds normal. No wheezes/rales/rhonchi noted. Chest nontender. No accessory muscle usage noted or decreased air movement noted. Abdomen: Soft and nontender. Bowel sounds normal in all 4 quadrants. No distention noted. No organomegaly noted. No visible injury noted. Back: No CVA tenderness. Full range of motion noted. Skin: Skin warm and dry. Normal skin color. Normal skin turgor. No rashes/lesions/lacerations noted. Extremities: No lower extremity edema. Extremities exhibit normal range of motion. Extremities nontender. Neuro: Oriented X 3. Cranial nerve exam: II-XII are grossly intact No motor deficit. No sensory deficit. Reflexes normal. Course Course Course Narrative: 72-year-old female came in with lightheadedness, chest pain, found to be in paroxysmal atrial fibrillation that patient self converted to normal sinus rhythm, the case was discussed with the insurance and benefits clerk Dr. Marcos recommended to discharge the patient on apixaban and toprol 25 mg daily, patient at discharge is stable with normal vital signs, negative troponin x2. Medical Decision Making Differential Diagnosis Differential Diagnoses: The differential diagnosis associated with the presentation includes (ACS, CHF, new onset AFib, dysrhythmia.) Admission/Observation Consideration of admission/observation: Escalation of care including admission/observation considered Consult Healthcare Provider Management of the patient was discussed with: Protection Engineer (Dr. Marcos) Lab Data MDM Lab Attestation statement: I reviewed the patient's lab results. 06/29/22 09:12 06/29/22 09:58 Labs: Lab Results 06/29/22 06/29/22 06/29/22 Range/Units 09:12 09:12 09:12 WBC 6.8 (4.8-10.8) X10*3/uL RBC 4.20 (4.20-5.50) X10*6/uL Hgb 12.6 (12.0-16.0) g/dl Hct 38.1 (37.0-47.0) % MCV 90.7 (80.0-98.0) fL MCH 30.0 (27.0-33.0) pg MCHC 33.1 (31.0-35.0) g/dl RDW 12.8 (11.0-16.0) % Plt Count 363 (160-400) X10*3/uL MPV 9.8 (9.4-12.3) fL Immature Gran % (Auto) 0.3 (0.0-0.4) % Neut % (Auto) 48.5 (45-73) % Lymph % (Auto) 40.3 H (20-40) % [place] % (Auto) 7.8 (2-11) % Eos % (Auto) 2.5 (0-4) % Baso % (Auto) 0.6 (0-2) % Lymph # (Auto) 2.7 (1.2-4.9) X10*3/uL [place] # (Auto) 0.5 (0.1-1.2) X10*3/uL Eos # (Auto) 0.2 (0.0-0.4) X10*3/uL Baso # (Auto) 0.0 (0.0-0.2) X10*3/uL Abs Immat Gran (auto) 0.02 (0.00-0.03) X10*3/uL Absolute Neuts (auto) 3.3 (2.0-8.3) x10*3/uL Absolute Nucleated RBC 0.000 (0.0-0.012) X10*3/uL Nucleated RBC % (auto) 0.0 (0.0-0.2) /100WBC PT 11.6 (10.0-13.1) SEC INR 1.0 (0.9-1.1) APTT 33.4 (26.0-36.4) SEC Sodium (135-145) mmol/L Potassium (3.3-5.1) mmol/L Chloride (96-108) mmol/L Carbon Dioxide (22-29) mmol/L Anion Gap (12-20) BUN (9-16) mg/dL Creatinine (0.5-1.4) mg/dL Estim Creat Clear Calc Estimated GFR Random Glucose (60-115) mg/dL Calcium (8.4-10.2) mg/dL Magnesium (1.6-2.6) mg/dL Total Bilirubin (0.0-1.0) mg/dL AST (5-31) U/L ALT (0-31) U/L Alkaline Phosphatase (39-117) U/L Troponin I High Sens 3.4 (<3.5-17.0) ng/L B-Natriuretic Peptide (<100) pg/mL Total Protein (6.5-8.0) g/dL Albumin (3.5-5.0) g/dL 06/29/22 06/29/22 Range/Units 09:12 09:58 WBC (4.8-10.8) X10*3/uL RBC (4.20-5.50) X10*6/uL Hgb (12.0-16.0) g/dl Hct (37.0-47.0) % MCV (80.0-98.0) fL MCH (27.0-33.0) pg MCHC (31.0-35.0) g/dl RDW (11.0-16.0) % Plt Count (160-400) X10*3/uL MPV (9.4-12.3) fL Immature Gran % (Auto) (0.0-0.4) % Neut % (Auto) (45-73) % Lymph % (Auto) (20-40) % [place] % (Auto) (2-11) % Eos % (Auto) (0-4) % Baso % (Auto) (0-2) % Lymph # (Auto) (1.2-4.9) X10*3/uL [place] # (Auto) (0.1-1.2) X10*3/uL Eos # (Auto) (0.0-0.4) X10*3/uL Baso # (Auto) (0.0-0.2) X10*3/uL Abs Immat Gran (auto) (0.00-0.03) X10*3/uL Absolute Neuts (auto) (2.0-8.3) x10*3/uL Absolute Nucleated RBC (0.0-0.012) X10*3/uL Nucleated RBC % (auto) (0.0-0.2) /100WBC PT (10.0-13.1) SEC INR (0.9-1.1) APTT (26.0-36.4) SEC Sodium 142 (135-145) mmol/L Potassium 4.5 (3.3-5.1) mmol/L Chloride 110 H (96-108) mmol/L Carbon Dioxide 26 (22-29) mmol/L Anion Gap 11 L (12-20) BUN 16 (9-16) mg/dL Creatinine 0.84 (0.5-1.4) mg/dL Estim Creat Clear Calc 66.9 Estimated GFR > 60 Random Glucose 104 (60-115) mg/dL Calcium 9.7 (8.4-10.2) mg/dL Magnesium 1.8 (1.6-2.6) mg/dL Total Bilirubin 0.7 (0.0-1.0) mg/dL AST 16 (5-31) U/L ALT 10 (0-31) U/L Alkaline Phosphatase 73 (39-117) U/L Troponin I High Sens (<3.5-17.0) ng/L B-Natriuretic Peptide 152 H (<100) pg/mL Total Protein 7.5 (6.5-8.0) g/dL Albumin 4.2 (3.5-5.0) g/dL Independent Interpretation I performed an independent interpretation of an: EKG (EKG 1.: Atrial fibrillation with RVR at 139 beats per minutes, normal axis deviation, normal intervals, no ST-T changes. ) and Plain X-Ray (Chest: No acute disease) Interpretation: EKG 2: Normal sinus rhythm at 68 beats per minutes, normal intervals, no ST-T changes. Radiology Impression Discussion of test interpretation with radiology: I have reviewed the radiologist's reading. Chronic Conditions Patient?s care impacted by: Hypertension Discharge Plan Discharge Clinical Impression: Paroxysmal A-fib Patient Disposition: Home, Self-Care Instructions: A-fib (Atrial Fibrillation) (ED) Prescriptions: New metoprolol succinate [Toprol XL] 25 mg tablet extended release 24 hr 12.5 mg PO DAILY Qty: 20 0RF apixaban 5 mg tablet 5 mg PO BID Qty: 30 0RF No Action (DME) foot care products Pad See Rx Instructions .Route Qty: 2 0RF Rx Instructions: As directed miscellaneous medical supply Misc 2 ea miscellaneous ONCE Qty: 2 0RF albuterol sulfate 90 mcg/actuation HFA aerosol inhaler 2 puff inhalation Q8H Qty: 8.5 3RF olmesartan 20 mg tablet 20 mg PO DAILY Qty: 90 3RF cholecalciferol (vitamin D3) 25 mcg (1,000 unit) capsule 50 mcg PO DAILY 90 Days Qty: 180 3RF sertraline 25 mg tablet 25 mg PO DAILY Qty: 90 3RF azithromycin 250 mg tablet 250 mg PO DAILY 6 Days Qty: 6 0RF Rx Instructions: start on day 2 of therapy timolol maleate 0.5 % drops 1 drp ophthalmic-Right QAM latanoprost (PF) 0.005 % drops 1 drp ophthalmic (eye) DAILY ibuprofen 800 mg tablet 800 mg PO TID PRN (Reason: Pain) (DME) OneTouch Ultra Test Strip See Rx Instructions .Route Qty: 100 3RF Rx Instructions: 1 qd (DME) blood-glucose meter [OneTouch Ultra2 Meter] Misc See Rx Instructions .Route Qty: 1 0RF Rx Instructions: As directed Referrals: Kathi Howell MD [Primary Care Provider] - Christian Marcos MD [Physician] -
[2022-06-29 09:17] LABS: MANUAL DIFF FLAG NO
[2022-06-29 09:24] LABS: Prothrombin Time 11.6 SEC (10.0-13.1)
[2022-06-29 09:27] LABS: Partial Thromboplastin Time 33.4 SEC (26.0-36.4)
[2022-06-29 09:29] LABS: Basophils Percent Auto 0.6 % (0-2); Eosinophils Absolute Auto 0.2 X10*3/uL (0.0-0.4); Eosinophils Percent Auto 2.5 % (0-4); Hematocrit 38.1 % (37.0-47.0); Hemoglobin 12.6 g/dl (12.0-16.0); Imm Gran Abs Auto 0.02 X10*3/uL (0.00-0.03); Imm Gran Pct Auto 0.3 % (0.0-0.4); Lymphocytes Absolute Auto 2.7 X10*3/uL (1.2-4.9); Lymphocytes Percent Auto 40.3 % (20-40); Mean Corpuscular HGB Conc 33.1 g/dl (31.0-35.0); Mean Corpuscular Volume 90.7 fL (80.0-98.0); Mean Platelet Volume 9.8 fL (9.4-12.3); Monocytes Absolute Auto 0.5 X10*3/uL (0.1-1.2); Monocytes Percent Auto 7.8 % (2-11); Neutrophils Absolute Auto 3.3 x10*3/uL (2.0-8.3); Neutrophils Percent Auto 48.5 % (45-73); Platelet Count 363 X10*3/uL (160-400); Red Cell Distribution Width 12.8 % (11.0-16.0); White Blood Count 6.8 X10*3/uL (4.8-10.8)
[2022-06-29 09:39] LABS: Troponin-I High Sensitivity 3.4 ng/L (<3.5-17.0)
[2022-06-29 10:04] LABS: B Type Natriuretic Peptide 152 pg/mL (<100)
[2022-06-29 10:34] VITALS: BP 143/63; PULSE 58; RESP 16; TEMP 36.8; O2SAT 96
[2022-06-29 10:37] LABS: Anion Gap 11 (12-20)
[2022-06-29 10:42] LABS: Alanine Aminotransferase 10 U/L (0-31); Albumin Level 4.2 g/dL (3.5-5.0); Alkaline Phosphatase 73 U/L (39-117); Aspartate Amino Transferase 16 U/L (5-31); Bilirubin Total 0.7 mg/dL (0.0-1.0); Blood Urea Nitrogen 16 mg/dL (9-16); Calcium 9.7 mg/dL (8.4-10.2); Carbon Dioxide 26 mmol/L (22-29); Chloride 110 mmol/L (96-108); Creatinine Clr Calc Pharmacy 66.9; Estimated Glomerular Filt Rate > 60; Glucose Random 104 mg/dL (60-115); Magnesium 1.8 mg/dL (1.6-2.6); Potassium 4.5 mmol/L (3.3-5.1); Sodium 142 mmol/L (135-145); Total Protein 7.5 g/dL (6.5-8.0)
[2022-06-29 12:13] LABS: Troponin-I High Sensitivity 9.2 ng/L (<3.5-17.0)
[2022-06-29 13:43] VITALS: BP 135/66; PULSE 54; RESP 14; TEMP 36.8; O2SAT 98
== END 2022-06-29 15:43 | disposition home or self-care (01) ==
PROVIDERS: Physician Assistant Medical; Emergency Provider Emergency Medicine; PCP Internal Medicine
DX: I48.0 Paroxysmal atrial fibrillation (principal); R07.89 Other chest pain; R06.02 Shortness of breath; Z79.899 Other long term (current) drug therapy
CPT/HCPCS: 36415; 71046; 80053; 83735; 83880; 84484; 85025; 85610; 85730; 93005; 99284

== ENCOUNTER 2022-07-11 09:15 | Outpatient (REF) | payer OTHER, SELFPAY ==
[2022-07-11 11:46] LABS: Estimated Average Glucose 126 mg/dL
[2022-07-11 12:30] LABS: TSH reflex Free T4 1.44 uIU/mL (0.32-4.0)
== END 2022-07-11 09:16 | disposition home or self-care (01) ==
LOC: HO.HMGCLDS 09:15
PROVIDERS: PCP Internal Medicine; Visit Provider Internal Medicine
DX: I10 Essential (primary) hypertension (principal); I48.91 Unspecified atrial fibrillation; R73.9 Hyperglycemia, unspecified
CPT/HCPCS: 36415; 83036; 83735; 84443

== ENCOUNTER → 2022-08-12 09:43 | Outpatient (REF) | payer OTHER, SELFPAY ==
--- NOTE | 2022-08-12 09:46 | CA_ITS ---
Transthoracic Echocardiogram Patient (Last, First, Middle): Fawn Patiño, Gender: Female Date of : 1950 Age: 72 Procedure Date: 08/12/2022 Procedure Type: Transthoracic Echocardiogram Location: OP Height: 162.56 cm Weight: 98.43 kg BSA: 2.03 m2 Heart Rate: bpm BP: 148 / 80 mmHg Senior Relationship Manager: MIRANDA Referring MD: Kathi Howell MD Rabbler: Amadou Mahoney MD Symptoms: I48.91 - Unspecified atrial fibrillation Study Quality: Adequate ECG Rhythm: Sinus Conclusions: - 1. Normal LV systolic function with impaired relaxation filling pattern 2. Mildly dilated left atrium 3. Normal cardiac valvular Doppler 4. Normal RV systolic pressure 5. No gross pericardial effusion Findings Left Ventricle Normal left ventricular size, thickness, and systolic function. The visually estimated ejection fraction is between 65-70%. Spectral Doppler is indicative of an impaired relaxation filling pattern. E/E prime ratio is between 8 and 15 consistent with indeterminate filling pressures. Peak GLS is -19.6%, which is within normal limits. Right Ventricle Normal right ventricular cavity size and systolic function. Atria The left atrium is mildly dilated. There is no evidence of interatrial shunt. The right atrium is normal in size. Aortic Valve Normal aortic valve structure and function. There is no aortic valve stenosis. There is mild aortic valve regurgitation. Mitral Valve There is mild anterior and posterior mitral leaflet thickening. There is trace mitral valve regurgitation. There is no mitral valve stenosis. Pulmonic Valve The pulmonic valve is likely normal. There is trace pulmonic valve regurgitation. Tricuspid Valve Normal tricuspid valve structure. There is mild tricuspid valve regurgitation. The right ventricular systolic pressure is normal. The right ventricular systolic pressure is 32 mmHg. Normal right atrial pressure. There is no evidence of pulmonary hypertension. Great Vessels The pulmonary artery was not well visualized. Venous The inferior vena cava is normal in size and collapses greater than 50% with inspiration. Pericardium/Pleural There is no evidence of pericardial effusion. Prior Study Comparison No prior study available for comparison. Measurements 2D Linear Measurements IVSd: 1.19 0.6-0.9/0.6-1.0 cm LVIDd: 4.69 3.9-5.3/4.2-5.9 cm LVIDd Index: 2.31 2.4-3.2/2.2-3.1 cm/m2 LVIDs: 2.85 2.0-3.6 cm LVPWd: 1.14 0.7-1.1 cm LA Diam: 3.10 2.7-3.8/3.0-4.0 cm LAIDs Index: 1.53 1.5-2.3 cm/m2 LV Mass: 252.50 67-162/88-224 g LV Mass Index: 124.38 43-95/49-115 g/m2 LVOT Diam: 2.00 3.0+(-)1.3 cm 2D Systolic Function EF 4C: 66.60 >55% EF 2C: 71.60 >55% EF BiP: 69.40 >55% Mitral Valve MV Pk E: 0.89 MV PK A: 0.93 MV Decel Time: 348.00 E/A: 1.00 E'Lateral: 8.27 E'Medial: 5.33 E/E' Med: 16.70 E/E' Lat: 10.80 PHT: 102.00 MVA PHT: 2.16 Decel [place]: 2.56 Aortic Valve AoV Pk Nico: 1.47 AoV Mn Nico: 1.00 AoV VTI: 0.42 AoV Pk Grad: 9.00 Aov Mn Grad: 5.00 ADAM Cont.VTI: 2.25 AI Pk Nico: 3.69 AI [place]: 1.32 LVOT LVOT Pk Nico: 1.16 LVOT Mn Nico: 0.75 LVOT VTI: 0.30 LVOT Pk Grad: 5.00 LVOT Mn Grad: 3.00 LVOT Diam: 2.00 LVOT Area: 3.14 Diastolic Function MV Pk E: 0.89 MV Pk A: 0.93 E/A: 1.00 E'Medial: 5.33 E/E' Med: 16.70 E' Laterial: 8.27 E/E' Lat: 10.80 Right Ventricle TAPSE (mm): 22.20 TVS' Nico: 9.68 Tricuspid Valve TR Pk Nico: 2.47 TR Pk Grad: 24.00 RA Press: 8.00 RVSP: 32.00 Great Vessels Aorta Sinus of Valsalva: 3.76 2.0-3.[address] [place]: 2.48 1.7-3.4 cm Ao Asc: 3.60 2.1-3.4 cm Updated in Other Vendor System with Status of Final Amadou Mahoney MD electronically signed on 08/12/2022 11:54:40 AM with status of Final
--- NOTE | 2022-08-12 09:46 | HM_ITS ---
Conclusion: 1. Patient was monitored for total period of 2 days and 19 hours 2. Baseline was normal sinus rhythm with average heart of 57 beats per minute with frequent sinus bradycardia with 69% of time heart rate below 60 beats per minute 3. No significant pauses noted 4. Occasional PACs noted 5. Patient reported 3 events of heart racing that correlated with sinus rhythm MTDD
== END ==
LOC: HO.CARD 09:43
PROVIDERS: Visit Provider Internal Medicine
DX: I48.91 Unspecified atrial fibrillation (principal)
CPT/HCPCS: 93242; 93306

== ENCOUNTER → 2022-08-13 10:31 | Outpatient (BNVA) | payer OTHER, SELFPAY | PROVIDERS: PCP Internal Medicine; Referring Provider Internal Medicine; Visit Provider Internal Medicine Cardiovascular Disease | DX: I48.0 Paroxysmal atrial fibrillation (principal); I10 Essential (primary) hypertension; R07.9 Chest pain, unspecified | CPT/HCPCS: 93005; 99202 ==

== ENCOUNTER → 2022-09-09 07:38 | Outpatient (REF) | payer OTHER, SELFPAY ==
--- NOTE | ~2022-09-09 | NM_ITS ---
EXERCISE MYOCARDIAL PERFUSION STUDY INDICATION: Chest pain, assess for coronary disease and ischemia TECHNIQUE: The patient was brought in for an exercise perfusion study on 09/09/2022. Patient performed exercise as per Lino protocol and was injected 30 mCi of sestamibi once target heart rate was achieved. Images were obtained using the SPECT gamma camera interlaced with the gating device. Images were obtained in supine position. Resting perfusion study was performed on 09/10/2022. Patient was administered 30 mCi of sestamibi intravenously at rest. Images were then obtained in supine position. Images were processed with the software and compared side to side in short axis, horizontal long axis and vertical long axis views. Total DLP 107mGy-cm. FINDINGS: Raw images were reviewed. The stress perfusion study showed no significant perfusion abnormality. Both uncorrected as well as CT attenuation corrected images were reviewed. The gated study shows normal LV systolic function with calculated LVEF of >70%. LV cavity is normal in size. The gated study shows normal wall thickening and contraction of segments. Resting study shows no significant perfusion abnormality. Gating at rest reveals normal wall motion with ejection fraction at 70%. The findings are consistent with no clear reversible or fixed perfusion defects. NM/NM deb perf SPECT rest & str IMPRESSION: 1. Myocardial perfusion imaging study shows likely normal myocardial perfusion. No definitive evidence of any ischemia or infarction. 2. Gated LVEF is >70% during stress and 70% during rest. 3. Transient ischemic dilatation not present. EKG component of the test reported separately.
--- NOTE | 2022-09-09 08:12 | CA_ITS ---
Acquisition Time: 2022-09-09 07:57:40 Total Exercise Time: 00:05:31 Test Indications: CP, AFIB Medications: SEE H Protocol: THIEN Max HR: 126 BPM 86% of Pred: 146 BPM Max BP: 174/070 mmHG Max Work Load: 7.0 METS Exercise stress test exercise 5 min 31 sec of Thien protocol achieving 86% MPHR, with moderate SOB, reports of chest heaviness / hard to breath with exercise which quickly resolved in recovery, with isolated PACs and PVCs, without EKG changes. Nuclear images pending. Test reviewed with Dr. Sweeney. Referred By: Christian Marcos Overread By: Tayla David
== END ==
LOC: HO.CARD 07:38
PROVIDERS: Visit Provider Internal Medicine Cardiovascular Disease
DX: R07.9 Chest pain, unspecified (principal); I48.0 Paroxysmal atrial fibrillation
CPT/HCPCS: 78452; 93017; A9500

== ENCOUNTER → 2022-09-09 08:05 | Outpatient (BNV) | payer OTHER, SELFPAY | PROVIDERS: Visit Provider Internal Medicine | DX: R07.89 Other chest pain (principal); R06.02 Shortness of breath | CPT/HCPCS: 78452; 93016; 93018 ==

== ENCOUNTER 2022-10-02 08:01 | Outpatient (AMB) | payer OTHER, SELFPAY ==
[2022-10-02 08:00] VITALS: BP 132/74; PULSE 68; RESP 20; TEMP 36.8; O2SAT 97
--- NOTE | 2022-10-02 08:45 | AM.OFFWIN_ITS ---
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 Is last menstrual period known: No Post menopausal: Yes Patient : No Allergies amoxicillin [AMOXICILLIN] Allergy (Unknown, Verified 10/02/22 09:01) RASH, allergy egg Allergy (Unknown, Verified 10/02/22 09:01) ITCHY THROAT/RASH Penicillins [PENICILLINS] Allergy (Unknown, Verified 10/02/22 09:01) RASH SHELLFISH Allergy (Severe, Uncoded 10/02/22 09:01) THROAT SWELLING Medication List - Last Reconciled 10/02/22 by Eunice Mcmanus RN albuterol sulfate 90 mcg/actuation 2 puffs inhalation Q8H apixaban 5 mg PO BID blood sugar diagnostic (HelloBooksTouch Ultra Test strips) 1 qd blood-glucose meter (AnSing Technologyuch Ultra2 Meter) As directed cholecalciferol (vitamin D3) 50 mcg (2 x 25 mcg (1,000 unit)) PO DAILY 90 days latanoprost (PF) 0.005% 1 drp ophthalmic (eye) DAILY metoprolol succinate ER (Toprol XL) 12.5 mg (1/2 x 25 mg) PO DAILY nitrofurantoin macrocrystal 100 mg PO BID 5 days olmesartan 20 mg PO DAILY sertraline 25 mg PO DAILY timolol maleate 0.5% 1 drp ophthalmic-Right QAM Do you need a note to return to daycare/school/sports/work: No HPI HPI Comments History of Present Illness Details 72-year-old female history of atrial fibrillation (on Eliquis) that presents for UTI symptoms. Patient states that she has been diagnosed with COVID over week ago. For the last 4 days experience increased frequency burning with urination and increased urgency. She denies fevers, chills, back pain, nausea, vomiting. [facility] Medical History Ankle pain, left Annual physical exam Depression Diabetic eye exam Dupuytren's contracture of right hand Environmental and seasonal allergies Glaucoma History of mammogram HTN (hypertension) Hyperglycemia Osteoarthritis Prediabetes Venous insufficiency of both lower extremities Vitamin D deficiency Surgical History H/O colonoscopy History of laparoscopic cholecystectomy History of prior ablation treatment History of surgery Family History Father Alzheimer's disease Dementia COPD (chronic obstructive pulmonary disease) HTN (hypertension) CVD (cardiovascular disease) Diabetes mellitus Mother Diabetes mellitus Liver cancer Maternal Grandfather No problems noted. Maternal Grandmother No problems noted. Paternal Grandfather No problems noted. Paternal Grandmother No problems noted. Brother No problems noted. Sister Diabetes mellitus Renal failure Sister No problems noted. Sister No problems noted. Sister No problems noted. Sister No problems noted. Son No problems noted. Son No problems noted. Son No problems noted. Daughter No problems noted. 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 Cognitive needs: No Hearing needs: No Vision needs: No Review of Systems Const All systems reviewed & are unremarkable except as noted in HPI and below Denies fever(s), Denies headache(s) and Denies weakness Eyes Reports no additional complaints ENT Reports no additional complaints and Denies headache(s) Card Reports no additional complaints, Denies chest pain, Denies leg edema and Denies dyspnea Resp Denies cough and Denies dyspnea GI Denies abdominal pain, Denies nausea and Denies vomiting Denies urinary frequency, Reports dysuria and Reports urinary urgency Musc Reports no additional complaints Neuro Denies headache(s) and Denies weakness Psych Reports no additional complaints Endo Reports no additional complaints Physical Exam Const General: cooperative, no acute distress and alert Orientation/consciousness: patient oriented x3 Limitations: no limitations HEENT Head: Yes normal to inspection Ears: hearing grossly normal bilaterally and external ears normal General nose exam: Normal external nose present Eyes General: appearance normal, both eyes and all related structures Neck Neck: Yes normal visual inspection Chest Chest palpation & inspection: normal inspection of the chest Resp Effort & Inspection: normal respiratory effort, able to speak in complete sentences and no audible wheezes Auscultation: clear to auscultation bilaterally Cardio Rate: regular rate Rhythm: regular rhythm GI Inspection: Yes normal to inspection Palpation (GI): Soft to palpation and nontender General: Yes no CVA tenderness Back/Spine/Pelvis Back: no CVA tenderness Skin General skin exam: no rashes or lesions noted Neuro General: patient oriented x3 Psych Appearance: grossly normal Mental Status: mental status grossly normal Speech and movement: Normal speech and movement present Affect: normal affect Attitude: cooperative Thought process: Normal thought process present Thought content: Normal thought content present Results AMB Urinalysis, Automated UA Leukoctes 500 Pamela/uL Last Edit by Eunice Mcmanus RN on 10/02/22 08:59 UA Nitrite Negative Last Edit by Eunice Mcmanus RN on 10/02/22 08:59 UA Urobilinogen 0.2 mg/dL Last Edit by Eunice Mcmanus RN on 10/02/22 08:59 UA Protein 30 mg/dL Last Edit by Eunice Mcmanus RN on 10/02/22 08:59 UA pH 6.0 Last Edit by Eunice Mcmanus RN on 10/02/22 08:59 UA Blood 200 Kalia/uL Last Edit by Eunice Mcmanus RN on 10/02/22 08:59 UA Specific [place] 1.015 Last Edit by Eunice Mcmanus RN on 10/02/22 08:59 UA Ketone Negative Last Edit by Eunice Mcmanus RN on 10/02/22 08:59 UA Bilirubin 0 mg/dL Last Edit by Eunice Mcmanus RN on 10/02/22 08:59 UA Glucose 0 mg/dL Last Edit by Eunice Mcmanus RN on 10/02/22 08:59 Assessment & Plan Assessment & Plan (1) Urinary tract infection: Code(s): N39.0 - Urinary tract infection, site not specified Plan VSS. On exam patient presents alert oriented in no acute distress exam is notable for no CVA tenderness no abdominal tenderness to palpation. Urinalysis performed consistent with UTI Discharge instructions, follow up and treatment are discussed with patient in my usual fashion. Alternatives in treatment are also discussed. The patient will return for worsening symptoms or as needed. Advised that any labs/imaging ordered will be followed up on and contact made if further treatment needed. Counseled that patient's condition may require further evaluation and/or treatment. Symptoms of concern for worsening disorder discussed in detail in my customary manner. Patient does verbalize understanding of the plan, there are no apparent barriers to communication. The patient is given the opportunity to ask questions and have them answered to his/her satisfaction Medications: New nitrofurantoin macrocrystal must administer with a meal/food 100 mg PO BID 10 caps 0RF 5 days Patient Instructions: You was seen and evaluated in the urgent care for UTI symptoms. Urinalysis was performed and was consistent with urinary tract infection. Prescribed an antibiotic please take as directed. Please return to the emergency department her urgent care if you experience any new or worsening symptoms such as fever, back pain, worsening urinary symptoms, any concerns of assignments above. Coding Level of Care Code Est Pt Level 3 (27123) Diagnoses Urinary tract infection N39.0
== END 2022-10-02 08:48 | disposition home or self-care (01) ==
PROVIDERS: PCP Internal Medicine; Visit Provider Physician Assistant
DX: N39.0 Urinary tract infection, site not specified (principal)
CPT/HCPCS: 81003; 99213

== ENCOUNTER 2022-10-07 08:19 | Outpatient (AMB) | payer OTHER, SELFPAY ==
[2022-10-07 08:34] VITALS: BP 108/66; PULSE 65; O2SAT 96; BMI 37.4
--- NOTE | 2022-10-07 08:34 | A.OFFPC_ITS ---
Vital Signs 10/07/22 08:34 Height 5 ft 4 in Weight 218 lb BMI 37.4 BP 108/66 Blood Pressure Location Rt brachial Position Sitting Pulse 65 Pulse Source Pulse Oximeter Pulse Oximetry (%) 96 Oxygen Delivery Method Room Air Intake Visit Reasons: follow up Intake Note: Pt is here today for a follow up visit. Pt states that she had Covid 3 weeks ago. Allergies amoxicillin [AMOXICILLIN] Allergy (Unknown, Verified 10/07/22 08:37) RASH, allergy egg Allergy (Unknown, Verified 10/07/22 08:37) ITCHY THROAT/RASH Penicillins [PENICILLINS] Allergy (Unknown, Verified 10/07/22 08:37) RASH SHELLFISH Allergy (Severe, Uncoded 10/07/22 08:37) THROAT SWELLING Medication List - Last Reconciled 10/07/22 by Kathi Howell MD albuterol sulfate 90 mcg/actuation 2 puffs inhalation Q8H apixaban 5 mg PO BID blood sugar diagnostic (QosmosTouch Ultra Test strips) 1 qd blood-glucose meter (Gauzyuch Ultra2 Meter) As directed cholecalciferol (vitamin D3) 50 mcg (2 x 25 mcg (1,000 unit)) PO DAILY 90 days latanoprost (PF) 0.005% 1 drp ophthalmic (eye) DAILY metoprolol succinate ER (Toprol XL) 12.5 mg (1/2 x 25 mg) PO DAILY nitrofurantoin macrocrystal 100 mg PO BID 5 days olmesartan 20 mg PO DAILY sertraline 25 mg PO DAILY timolol maleate 0.5% 1 drp ophthalmic-Right QAM Tobacco use date assessed: 07/11/22 Fall risk assessment: No Falls in past year Last assessed Fall Risk: 10/07/22 Dental Screening Dental Screen Date: 10/07/22 Did you have a dental visit in the last 12 months?: Yes Did you have a dental problem in the last 6 months where you did not have access to dental care?: No Was dental information given to patient?: Patient has dentist HPI follow up HPI Details Patient presents for the follow-up on hypertension paroxysmal AFib stable on current medications. Patient had negative stress test echocardiogram and Holter monitor. She follows up with Cardiology [facility] Medical History Ankle pain, left Annual physical exam Depression Diabetic eye exam Dupuytren's contracture of right hand Environmental and seasonal allergies Glaucoma History of mammogram HTN (hypertension) Hyperglycemia Osteoarthritis Prediabetes Venous insufficiency of both lower extremities Vitamin D deficiency Surgical History H/O colonoscopy History of laparoscopic cholecystectomy History of prior ablation treatment History of surgery Family History Father Alzheimer's disease Dementia COPD (chronic obstructive pulmonary disease) HTN (hypertension) CVD (cardiovascular disease) Diabetes mellitus Mother Diabetes mellitus Liver cancer Maternal Grandfather No problems noted. Maternal Grandmother No problems noted. Paternal Grandfather No problems noted. Paternal Grandmother No problems noted. Brother No problems noted. Sister Diabetes mellitus Renal failure Sister No problems noted. Sister No problems noted. Sister No problems noted. Sister No problems noted. Son No problems noted. Son No problems noted. Son No problems noted. Daughter No problems noted. 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 1. Little interest or pleasure in doing things: not at all 2. Feeling down, depressed, or hopeless: not at all 3. Trouble falling or staying asleep, or sleeping too much: not at all 4. Feeling tired or having little energy: not at all 5. Poor appetite or overeating: not at all 6. Feeling bad about yourself - or that you are a failure or have let yourself or your family down: not at all 7. Trouble concentrating on things, such as reading the newspaper or watching television: not at all 8. Moving or speaking so slowly that other people could have noticed. Or the opposite - being so fidgety or restless that you have been moving around a lot more than usual: not at all 9. Thoughts that you would be better off or of hurting yourself in some way: not at all Total score: 0 Depression Screening Interpretation: Negative Source: Developed by Drs. Moose Alberto, Christo Montelongo and colleagues, with an educational jefe from [employer]. Thrive Questionnaire Date Thrive assessed: 10/07/22 I am a: Patient What is your living situation today?: I have a steady place to live Within the past 12 months, did the food you bought not last and you didn't have the money to get more?: Never true Within the past 12 months, did you worry whether your food would run out before you got money to buy more?: Never true Do you have trouble paying for medicines?: No Do you have trouble getting transportation to medical appointments?: No Do you have trouble paying your heating and electricity bill?: No Do you have trouble taking care of your child, family member or friend?: No Do you have trouble with day-to-day activities such as bathing, preparing meals, shopping, managing finances, etc.?: No Are you currently unemployed and looking for a job?: No Are you interested in more education?: No Please select the resources that you would like help with: None Currently or been in a relationship where the following occur: no concerns repo rted AUDIT C Alcohol Use Questionnaire (AUDIT-C) 1. How often do you have a drink containing alcohol?: Never 3. How often do you have six or more drinks on one occasion?: Never Total Score: 0 MAGDALENA-7 AMB Questionnaire MAGDALENA-7 Date MAGDALENA - 7 assessed: 10/07/22 Feeling nervous, anxious, or on edge: 0 = Not at all Not being able to stop or control worryin = Not at all Worrying too much about different things: 0 = Not at all Trouble relaxin = Not at all Being so restless that it is hard to sit still: 0 = Not at all Becoming easily annoyed or irritable: 0 = Not at all Feeling afraid as if something awful might happen: 0 = Not at all Total MAGDALENA-7 score (0-4 normal; 5-9 mild; 10-14 moderate; 15-21 severe): 0 Source: Developed by Carmela De Leon Kurt Kroenke and colleagues, with an educational jefe from [employer]. Review of Systems Const All systems reviewed & are unremarkable except as noted in HPI and below Eyes Reports no additional complaints ENT Reports no additional complaints Card Reports no additional complaints Resp Reports no additional complaints GI Reports no additional complaints Reports no additional complaints Physical exam (Primary Care) Vital Signs: Last Vital Signs Pulse 65 10/07/22 08:34 BP 108/66 10/07/22 08:34 Pulse Ox 96 10/07/22 08:34 Oxygen Delivery Method Room Air 10/07/22 08:34 BMI result Body Mass Index 37.4 Tobacco/Smoking Status: Tobacco use Status Tobacco use date assessed 07/11/22 10/07/22 08:39 Patient Tobacco Use Status Never used Tobacco 10/07/22 08:39 e-Cigarette/Vaping Use Never Used 10/07/22 08:39 PHQ-9: PHQ-9 Score PHQ-9: Total score 0 10/07/22 08:42 Depression Screening Interpretation: Negative Thrive Assessment: Date of Thrive Assessment Date Thrive assessed 10/07/22 10/07/22 08:42 Currently or been in a relationship where the following occur: no concerns reported Const General: no acute distress HENMT Head: Yes normal to inspection General nose exam: Normal external nose present Eyes General: appearance normal, both eyes and all related structures Neck Neck: Yes supple Resp Effort & Inspection: normal respiratory effort Auscultation: clear to auscultation bilaterally Cardio Rhythm: regular rhythm Heart sounds: S1 normal heart sound present and S2 normal heart sound present GI Inspection: Yes normal to inspection Palpation (GI): Soft to palpation Auscultation: normal bowel sounds Assessment and Plan Assessment & Plan (1) PAF (paroxysmal atrial fibrillation): Code(s): I48.0 - Paroxysmal atrial fibrillation Plan: Continue Eliquis and low-dose of beta-sudhir follow-up with Cardiology (2) HTN (hypertension): Code(s): I10 - Essential (primary) hypertension Plan: Continue olmesartan (3) Hyperglycemia: Comment: A1C 6.2 05/22 Code(s): R73.9 - Hyperglycemia, unspecified Plan: Continue ADA diet. Patient will return for fasting labs tomorrow and will follow-up in 6 months with a blood work before Medications: Discontinued nitrofurantoin macrocrystal must administer with a meal/food Discontinued Reason: Doctor's Order 100 mg PO BID 5 days 10 caps 0RF Coding Level of Care Code Est Pt Level 3 (39315) Diagnoses PAF (paroxysmal atrial fibrillation) I48.0 HTN (hypertension) I10 Hyperglycemia R73.9
== END 2022-10-07 09:28 | disposition home or self-care (01) ==
PROVIDERS: PCP Internal Medicine; Visit Provider Internal Medicine
DX: I48.0 Paroxysmal atrial fibrillation (principal); I10 Essential (primary) hypertension; R73.9 Hyperglycemia, unspecified
CPT/HCPCS: 99213

== ENCOUNTER 2022-10-07 09:19 | Outpatient (REF) | payer OTHER, SELFPAY ==
[2022-10-07 11:21] LABS: MANUAL DIFF FLAG NO
[2022-10-07 11:41] LABS: Basophils Percent Auto 0.5 % (0-2); Eosinophils Absolute Auto 0.2 X10*3/uL (0.0-0.4); Eosinophils Percent Auto 2.8 % (0-4); Hematocrit 36.1 % (37.0-47.0); Hemoglobin 11.4 g/dl (12.0-16.0); Imm Gran Abs Auto 0.02 X10*3/uL (0.00-0.03); Imm Gran Pct Auto 0.3 % (0.0-0.4); Lymphocytes Absolute Auto 1.9 X10*3/uL (1.2-4.9); Lymphocytes Percent Auto 29.4 % (20-40); Mean Corpuscular HGB Conc 31.6 g/dl (31.0-35.0); Mean Corpuscular Hemoglobin 28.6 pg (27.0-33.0); Mean Corpuscular Volume 90.5 fL (80.0-98.0); Mean Platelet Volume 9.8 fL (9.4-12.3); Monocytes Absolute Auto 0.6 X10*3/uL (0.1-1.2); Monocytes Percent Auto 9.3 % (2-11); Neutrophils Absolute Auto 3.7 x10*3/uL (2.0-8.3); Neutrophils Percent Auto 57.7 % (45-73); Platelet Count 405 X10*3/uL (160-400); Red Blood Count 3.99 X10*6/uL (4.20-5.50); Red Cell Distribution Width 12.9 % (11.0-16.0); White Blood Count 6.4 X10*3/uL (4.8-10.8)
[2022-10-07 12:10] LABS: Estimated Average Glucose 131 mg/dL; Hemoglobin A1c % 6.2 %
[2022-10-07 12:19] LABS: Alanine Aminotransferase 22 U/L (0-31); Albumin Level 4.1 g/dL (3.5-5.0); Alkaline Phosphatase 67 U/L (39-117); Anion Gap 12 (12-20); Aspartate Amino Transferase 20 U/L (5-31); Bilirubin Total 0.7 mg/dL (0.0-1.0); Blood Urea Nitrogen 20 mg/dL (9-16); Calcium 9.4 mg/dL (8.4-10.2); Carbon Dioxide 25 mmol/L (22-29); Chloride 106 mmol/L (96-108); Cholesterol 137 mg/dL; Estimated Glomerular Filt Rate 59; Glucose Fasting 109 mg/dL (60-99); HDL Cholesterol 38 mg/dL; LDL Cholesterol Calculated 80 mg/dl; Potassium 4.3 mmol/L (3.3-5.1); Sodium 139 mmol/L (135-145); Total Protein 7.9 g/dL (6.5-8.0); Triglycerides 98 mg/dL
[2022-10-07 12:31] LABS: Creatinine Urine 118.94 mg/dL; Microalbum/Creatinine Ratio Ur 11.7 ug/mg cr
== END 2022-10-07 09:20 | disposition home or self-care (01) ==
LOC: HO.HMGCLDS 09:19
PROVIDERS: PCP Internal Medicine; Visit Provider Internal Medicine
DX: I48.91 Unspecified atrial fibrillation (principal); I10 Essential (primary) hypertension; R73.9 Hyperglycemia, unspecified
CPT/HCPCS: 36415; 80053; 80061; 82043; 83036; 85025

== ENCOUNTER 2022-11-11 08:50 | Outpatient (REF) | payer OTHER, SELFPAY | END 2022-11-11 08:51 | disposition home or self-care (01) | LOC: HO.MAMMO 08:50 | PROVIDERS: PCP Internal Medicine; Visit Provider Internal Medicine | DX: Z12.31 Encounter for screening mammogram for malignant neoplasm of breast (principal) | CPT/HCPCS: 77063; 77067 ==

== ENCOUNTER → 2022-11-11 09:15 | Outpatient (BNV) | payer OTHER, SELFPAY | PROVIDERS: PCP Internal Medicine; Visit Provider Radiology Diagnostic Radiology | DX: Z12.31 Encounter for screening mammogram for malignant neoplasm of breast (principal) | CPT/HCPCS: 77063; 77067 ==

== ENCOUNTER 2022-11-24 10:00 | Outpatient (AMB) | payer OTHER, SELFPAY ==
--- NOTE | 2022-11-24 10:12 | MHC.OFFVIS ---
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 Accompanied by: Daughter Allergies amoxicillin [AMOXICILLIN] Allergy (Unknown, Verified 10/07/22 08:37) RASH, allergy egg Allergy (Unknown, Verified 10/07/22 08:37) ITCHY THROAT/RASH Penicillins [PENICILLINS] Allergy (Unknown, Verified 10/07/22 08:37) RASH SHELLFISH Allergy (Severe, Uncoded 10/07/22 08:37) THROAT SWELLING Medication List - Last Reconciled 11/24/22 by Christian Marcos MD albuterol sulfate 90 mcg/actuation 2 puffs inhalation Q8H apixaban 5 mg PO BID blood sugar diagnostic (OneTouch Ultra Test strips) 1 qd blood-glucose meter (OneTouch Ultra2 Meter) As directed cholecalciferol (vitamin D3) 50 mcg (2 x 25 mcg (1,000 unit)) PO DAILY 90 days latanoprost (PF) 0.005% 1 drp ophthalmic (eye) DAILY metoprolol succinate ER (Toprol XL) 12.5 mg (1/2 x 25 mg) PO DAILY olmesartan 20 mg PO DAILY sertraline 25 mg PO DAILY timolol maleate 0.5% 1 drp ophthalmic-Right QAM HPI HPI Comments History of Present Illness Details Pleasant 72-year-old female who is here for 1st office visit. She was in the emergency department recently when she presented with palpitations and chest discomfort. She was noticed to be in AFib with RVR. She was given IV medications and broke out of atrial fibrillation with improvement in all her symptoms. She was subsequently discharged from the emergency department with apixaban and metoprolol. Since then she has been doing much better with some palpitations off and on. She is wearing a 3 day Holter monitor currently. She has been experiencing some shortness of breath and central chest heaviness which happens when she is doing activities. She is saying these symptoms started after the episode of atrial fibrillation. Physically she is not very active but does activities at home. She is overweight but has never had a sleep study. She is unsure whether she snores at night because she lives by herself. She is denying any significant daytime sleepiness or headaches. 11/24/22: She returns for follow-up. Holter monitor done for 3 days which did not show atrial fibrillation. She is getting some palpitations lasting for few seconds but no prolonged episodes. She is complaining of vertigo. She also has exertional dyspnea and some chest discomfort. She was referred for stress Mibi where she was able to exercise for 5 minute 31 seconds and achieved 86% of maximum predicted heart rate with moderate shortness of breath and chest heaviness. No ECG changes were noticed and nuclear perfusion imaging was read as normal. No bleeding concerns currently with Rossi. [facility] Medical History Ankle pain, left Annual physical exam Depression Diabetic eye exam Dupuytren's contracture of right hand Environmental and seasonal allergies Glaucoma History of mammogram HTN (hypertension) Hyperglycemia Osteoarthritis Prediabetes Venous insufficiency of both lower extremities Vitamin D deficiency Surgical History H/O colonoscopy History of laparoscopic cholecystectomy History of prior ablation treatment History of surgery Family History Father Alzheimer's disease Dementia COPD (chronic obstructive pulmonary disease) HTN (hypertension) CVD (cardiovascular disease) Diabetes mellitus Mother Diabetes mellitus Liver cancer Maternal Grandfather No problems noted. Maternal Grandmother No problems noted. Paternal Grandfather No problems noted. Paternal Grandmother No problems noted. Brother No problems noted. Sister Diabetes mellitus Renal failure Sister No problems noted. Sister No problems noted. Sister No problems noted. Sister No problems noted. Son No problems noted. Son No problems noted. Son No problems noted. Daughter No problems noted. 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 Cognitive needs: No Hearing needs: No Vision needs: No Review of Systems Const Denies chills, Denies fatigue, Denies fever(s), Denies frequent falls, Denies weakness, Denies weight gain and Denies weight loss ENT Denies dizziness Card Denies chest pain, Denies leg edema, Denies lightheadedness, Denies palpitations, Denies dyspnea, Denies dyspnea on exertion, Denies orthopnea and Denies other (loss of consciousness) Resp Denies cough, Denies dyspnea and Denies dyspnea on exertion GI Denies hematochezia and Denies change in stool character Musc Denies abnormal gait, Denies muscle weakness, Denies numbness, Denies radiating pain into limb and Denies tingling Neuro Denies abnormal gait, Denies dizziness, Denies frequent falls, Denies numbness, Denies tingling and Denies weakness Endo Denies fatigue and Denies palpitations Physical Exam Vital Signs: Last Vital Signs Pulse 50 11/24/22 10:13 BP 120/70 11/24/22 10:13 BMI result Body Mass Index 37.8 GENERAL APPEARANCE: in no acute distress, pleasant. NECK: no carotid bruit, no jugular venous distention. SKIN: no suspicious lesions, warm and dry. HEART: no murmurs, regular rate and rhythm. LUNGS: clear to auscultation bilaterally. ABDOMEN: soft, nontender. EXTREMITIES: no edema. PERIPHERAL PULSES: equal. NEUROLOGIC: No gross deficits, AAO X 3 Assessment & Plan Assessment & Plan (1) PAF (paroxysmal atrial fibrillation): Code(s): I48.0 - Paroxysmal atrial fibrillation (2) Equivocal stress test: Code(s): R94.39 - Abnormal result of other cardiovascular function study (3) Vertigo: Code(s): R42 - Dizziness and giddiness Plan Pleasant 72 year female who is here for follow-up. She had episode of paroxysmal atrial fibrillation and since then has been stable. She is on Eliquis for anticoagulation. She is on 12.5 mg of Toprol XL. She is also on timolol ophthalmic drops. Overall heart rates are slow in 50s and her Holter monitoring also has shown frequent sinus bradycardia. She is denying any dizziness or lightheadedness. She is complaining of some vertigo and we will try some meclizine as needed. In my opinion her stress test was equivocal. She had exertional shortness of breath and chest discomfort. I have discussed with her to pursue of coronary CTA to rule out any obstructive coronary disease. Sometimes nuclear perfusion imaging can be normal multivessel disease and given the fact that she has exertional symptoms I think we should get clarity. Thank you for allowing me to participate in the care of your patient. Please feel free to contact me if you have any questions. Orders: Orders CT Cardiac Coronary Angio Today R94.39 - Abnormal result of other cardiovascular function study Basic Metabolic Panel Today R94.39 - Abnormal result of other cardiovascular function study Medications: New meclizine 12.5 mg PO BID PRN 30 tabs 0RF dizziness R42 - Dizziness and giddiness Coding Level of Care Code Est Pt Level 4 (21052) Diagnoses PAF (paroxysmal atrial fibrillation) I48.0 Equivocal stress test R94.39 Vertigo R42
[2022-11-24 10:13] VITALS: BP 120/70; PULSE 50; BMI 37.8
== END 2022-11-24 10:44 | disposition home or self-care (01) ==
PROVIDERS: PCP Internal Medicine; Visit Provider Internal Medicine Cardiovascular Disease
DX: I48.0 Paroxysmal atrial fibrillation (principal); R94.39 Abnormal result of other cardiovascular function study; R42 Dizziness and giddiness
CPT/HCPCS: 99214

== ENCOUNTER → 2022-11-24 10:00 | Outpatient (BNVA) | payer OTHER, SELFPAY | PROVIDERS: PCP Internal Medicine; Visit Provider Internal Medicine Cardiovascular Disease | DX: I48.0 Paroxysmal atrial fibrillation (principal); R94.39 Abnormal result of other cardiovascular function study; R42 Dizziness and giddiness | CPT/HCPCS: 99212 ==

== ENCOUNTER 2023-02-17 06:25 | Outpatient (REF) | payer OTHER, SELFPAY ==
[2023-02-17 07:18] LABS: Anion Gap 13 (12-20); Blood Urea Nitrogen 20 mg/dL (9-16); Calcium 9.6 mg/dL (8.4-10.2); Carbon Dioxide 21 mmol/L (22-29); Chloride 110 mmol/L (96-108); Estimated Glomerular Filt Rate > 60; Glucose Random 117 mg/dL (60-115); Potassium 4.2 mmol/L (3.3-5.1); Sodium 140 mmol/L (135-145)
== END 2023-02-17 06:26 | disposition home or self-care (01) ==
LOC: HO.LAB 06:25
PROVIDERS: PCP Internal Medicine; Visit Provider Internal Medicine Cardiovascular Disease
DX: R94.39 Abnormal result of other cardiovascular function study (principal); N39.0 Urinary tract infection, site not specified; I10 Essential (primary) hypertension; R73.9 Hyperglycemia, unspecified
CPT/HCPCS: 36415; 80048

== ENCOUNTER 2023-03-09 10:40 | Outpatient (AMB) | payer OTHER, SELFPAY ==
--- NOTE | 2023-03-09 11:00 | MHC.OFFVIS ---
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 Required: No Accompanied by: Grand Child Allergies amoxicillin [AMOXICILLIN] Allergy (Unknown, Verified 10/07/22 08:37) RASH, allergy egg Allergy (Unknown, Verified 10/07/22 08:37) ITCHY THROAT/RASH Penicillins [PENICILLINS] Allergy (Unknown, Verified 10/07/22 08:37) RASH SHELLFISH Allergy (Severe, Uncoded 10/07/22 08:37) THROAT SWELLING Medication List - Last Reconciled 03/09/23 by Christian Marcos MD albuterol sulfate 90 mcg/actuation 2 puffs inhalation Q8H apixaban 5 mg PO BID blood sugar diagnostic (OneTouch Ultra Test strips) 1 qd blood-glucose meter (Play[employer]artTouch Ultra2 Meter) As directed cholecalciferol (vitamin D3) 50 mcg (2 x 25 mcg (1,000 unit)) PO DAILY 90 days latanoprost (PF) 0.005% 1 drp ophthalmic (eye) DAILY meclizine 12.5 mg PO BID PRN metoprolol succinate ER (Toprol XL) 12.5 mg (1/2 x 25 mg) PO DAILY olmesartan 20 mg PO DAILY sertraline 25 mg PO DAILY timolol maleate 0.5% 1 drp ophthalmic-Right QAM HPI HPI Comments History of Present Illness Details Pleasant 72-year-old female who is here for f/u. She was in the emergency department recently when she presented with palpitations and chest discomfort. She was noticed to be in AFib with RVR. She was given IV medications and broke out of atrial fibrillation with improvement in all her symptoms. She was subsequently discharged from the emergency department with apixaban and metoprolol. Since then she has been doing much better with some palpitations off and on. She is wearing a 3 day Holter monitor currently. She has been experiencing some shortness of breath and central chest heaviness which happens when she is doing activities. She is saying these symptoms started after the episode of atrial fibrillation. Physically she is not very active but does activities at home. She is overweight but has never had a sleep study. She is unsure whether she snores at night because she lives by herself. She is denying any significant daytime sleepiness or headaches. 11/24/22: She returns for follow-up. Holter monitor done for 3 days which did not show atrial fibrillation. She is getting some palpitations lasting for few seconds but no prolonged episodes. She is complaining of vertigo. She also has exertional dyspnea and some chest discomfort. She was referred for stress Mibi where she was able to exercise for 5 minute 31 seconds and achieved 86% of maximum predicted heart rate with moderate shortness of breath and chest heaviness. No ECG changes were noticed and nuclear perfusion imaging was read as normal. No bleeding concerns currently with Rossi. 03/09/22: She returns for follow-up. She was referred for coronary CTA on last visit due to equivocal exercise stress test. Coronary CTA showed no evidence of hemodynamically significant coronary artery disease. 25% proximal RCA stenosis was noted. Small calcification distal portion of LAD and left circumflex artery was normal. Mildly enlarged main pulmonary artery and borderline a large mid ascending aorta 3.9 cm. She is denying chest discomfort or shortness of breath. Palpitation lasting for few seconds just like she reported in October 2022. No bleeding concerns. [facility] Medical History Ankle pain, left Annual physical exam Depression Diabetic eye exam Dupuytren's contracture of right hand Environmental and seasonal allergies Glaucoma History of mammogram HTN (hypertension) Hyperglycemia Osteoarthritis Prediabetes Venous insufficiency of both lower extremities Vitamin D deficiency Surgical History H/O colonoscopy History of surgery History of prior ablation treatment History of laparoscopic cholecystectomy Family History Father Alzheimer's disease Dementia COPD (chronic obstructive pulmonary disease) HTN (hypertension) CVD (cardiovascular disease) Diabetes mellitus Mother Diabetes mellitus Liver cancer Maternal Grandfather No problems noted. Maternal Grandmother No problems noted. Paternal Grandfather No problems noted. Paternal Grandmother No problems noted. Brother No problems noted. Sister Diabetes mellitus Renal failure Sister No problems noted. Sister No problems noted. Sister No problems noted. Sister No problems noted. Son No problems noted. Son No problems noted. Son No problems noted. Daughter No problems noted. 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 Cognitive needs: No Hearing needs: No Vision needs: No Review of Systems Const Reports chills, Reports fatigue, Reports fever(s), Reports frequent falls, Reports weakness, Reports weight gain and Reports weight loss ENT Reports dizziness Card Reports chest pain, Reports leg edema, Reports lightheadedness, Reports palpitations, Reports dyspnea and Reports dyspnea on exertion Resp Reports cough, Reports dyspnea and Reports dyspnea on exertion GI Reports hematochezia Musc Reports abnormal gait, Reports muscle weakness, Reports numbness, Reports radiating pain into limb and Reports tingling Neuro Reports abnormal gait, Reports dizziness, Reports frequent falls, Reports numbness, Reports tingling and Reports weakness Endo Reports fatigue and Reports palpitations Physical Exam Vital Signs: Last Vital Signs Pulse 51 03/09/23 11:01 BP 140/64 H 03/09/23 11:01 BMI result Body Mass Index 38.1 GENERAL APPEARANCE: in no acute distress, pleasant. NECK: no carotid bruit, no jugular venous distention. SKIN: no suspicious lesions, warm and dry. HEART: no murmurs, regular rate and rhythm. LUNGS: clear to auscultation bilaterally. ABDOMEN: soft, nontender. EXTREMITIES: no edema. PERIPHERAL PULSES: equal. NEUROLOGIC: No gross deficits, AAO X 3 Assessment & Plan Assessment & Plan (1) PAF (paroxysmal atrial fibrillation): Code(s): I48.0 - Paroxysmal atrial fibrillation (2) HTN (hypertension): Code(s): I10 - Essential (primary) hypertension Plan Pleasant 72-year-old female who is here for follow-up. She is background history of paroxysmal atrial fibrillation. She is currently on apixaban and metoprolol succinate. Blood pressure is mildly elevated. I have advised her to monitor 8 at home and report to us if her blood pressure numbers are persistently elevated. She had equivocal exercise stress test and she was referred for coronary CTA. CTA has shown mild calcification in LAD and 25% stenosis in the proximal right coronary artery. Nothing significant to give her any symptoms. She should have fasting lipid panel once a year. Last cholesterol testing was in September 2022 when total cholesterol was 137, triglycerides 98, LDL 80 and HDL 38. I am starting her on Rosuvastatin 10 mg daily. Thank you for allowing me to participate in the care of your patient. Please feel free to contact me if you have any questions. Medications: New rosuvastatin 10 mg PO DAILY 60 tabs 3RF R94.39 - Abnormal result of other cardiovascular function study Coding Level of Care Code Est Pt Level 4 (34546) Diagnoses PAF (paroxysmal atrial fibrillation) I48.0 HTN (hypertension) I10
[2023-03-09 11:01] VITALS: BP 140/64; PULSE 51; BMI 38.1
== END 2023-03-09 11:34 | disposition home or self-care (01) ==
PROVIDERS: PCP Internal Medicine; Visit Provider Internal Medicine Cardiovascular Disease
DX: I48.0 Paroxysmal atrial fibrillation (principal); I10 Essential (primary) hypertension
CPT/HCPCS: 99214

== ENCOUNTER → 2023-03-09 10:40 | Outpatient (BNVA) | payer OTHER, SELFPAY | PROVIDERS: PCP Internal Medicine; Visit Provider Internal Medicine Cardiovascular Disease | DX: I48.0 Paroxysmal atrial fibrillation (principal); I10 Essential (primary) hypertension | CPT/HCPCS: 99212 ==

== ENCOUNTER 2023-03-10 08:43 | Outpatient (AMB) | payer OTHER, SELFPAY ==
--- NOTE | 2023-03-10 09:08 | MHC.OFFWIV ---
Intake Vital Signs 03/10/23 09:10 Height 5 ft 4 in Weight 220 lb BMI 37.8 BP 140/70 H Blood Pressure Location Rt brachial Position Sitting Pulse 68 Pulse Source Pulse Oximeter Temp 97.8 F Temp Source Oral Pulse Oximetry (%) 98 Oxygen Delivery Method Room Air Oxygen Flow Rate 97.8 Intake Visit Reasons: EP Sore throat, Cough [phone] Intake Note: Patient is here with sore throat, cough since Mar.03, has tried gargling with no relief. Patient Tobacco Use Status: Never used Tobacco Allergies amoxicillin [AMOXICILLIN] Allergy (Unknown, Verified 03/10/23 09:09) RASH, allergy egg Allergy (Unknown, Verified 03/10/23 09:09) ITCHY THROAT/RASH Penicillins [PENICILLINS] Allergy (Unknown, Verified 03/10/23 09:09) RASH SHELLFISH Allergy (Severe, Uncoded 03/10/23 09:09) THROAT SWELLING Do you need a note to return to daycare/school/sports/work: No HPI EP Sore throat, Cough [phone] HPI Details This is a 72-year-old female patient who presents today with a one-week history of sore throat. States it is very painful to swallow. She has tried some [id number] medicine for this without relief. Denies any fever or chills. Reports her granddaughter, whom she is close with, was diagnosed and treated for strep pharyngitis last week. He reports a mild cough with some yellow / green sputum, however denies any other sick symptoms. [facility] Medical History Annual physical exam Dupuytren's contracture of right hand Ankle pain, left Venous insufficiency of both lower extremities HTN (hypertension) Hyperglycemia Diabetic eye exam Osteoarthritis Environmental and seasonal allergies History of mammogram Prediabetes Glaucoma Depression Vitamin D deficiency Surgical History H/O colonoscopy History of surgery History of prior ablation treatment History of laparoscopic cholecystectomy Family History Father Alzheimer's disease Dementia COPD (chronic obstructive pulmonary disease) HTN (hypertension) CVD (cardiovascular disease) Diabetes mellitus Mother Diabetes mellitus Liver cancer Maternal Grandfather No problems noted. Maternal Grandmother No problems noted. Paternal Grandfather No problems noted. Paternal Grandmother No problems noted. Brother No problems noted. Sister Diabetes mellitus Renal failure Sister No problems noted. Sister No problems noted. Sister No problems noted. Sister No problems noted. Son No problems noted. Son No problems noted. Son No problems noted. Daughter No problems noted. 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 Cognitive needs: No Hearing needs: No Vision needs: No Review of Systems Const All systems reviewed & are unremarkable except as noted in HPI and below Physical Exam Vital Signs: Last Vital Signs Temp 97.8 F 03/10/23 09:10 Pulse 68 03/10/23 09:10 BP 140/70 H 03/10/23 09:10 Pulse Ox 98 03/10/23 09:10 Oxygen Delivery Method Room Air 03/10/23 09:10 Oxygen Flow Rate 97.8 03/10/23 09:10 BMI result Body Mass Index 37.8 Const General: cooperative and no acute distress HEENT Head: Yes normal to inspection Ears: hearing grossly normal bilaterally, external ears normal and TM's normal bilaterally General nose exam: Normal external nose present and Normal nasal mucous membranes and turbinates present Throat: Yes posterior oropharynx abnormal ( Erythema, tonsillar hypertrophy and exudate) Neck Neck: Yes no lymphadenopathy Resp Effort & Inspection: normal respiratory effort Auscultation: clear to auscultation bilaterally Cardio Jugular venous distension: no JVD Palpation: normal PMI Rate: regular rate Rhythm: regular rhythm Skin General skin exam: no rashes or lesions noted Extrem General: Yes capillary refill normal and Yes no clubbing, cyanosis or edema Psych Appearance: grossly normal Mental Status: mental status grossly normal Speech and movement: Normal speech and movement present Results AMB Rapid Strep AMB Rapid Strep Negative Last Edit by Jane Duff CMA on 03/10/23 09:26 Assessment & Plan Assessment & Plan (1) Pharyngitis: Code(s): J02.9 - Acute pharyngitis, unspecified Qualifiers: Pharyngitis/tonsillitis etiology: streptococcus Qualified Code(s): J02.0 - Streptococcal pharyngitis Plan: will treat for Streptococcus pharyngitis, as patient has symptoms consistent with this, and also had close exposure to to strep positive granddaughter. PCN/Amox allergy - will start on Azithromycin. Advised ongoing hydration, gargles with salt water, [id number] lozenges as needed for symptomatic treatment, in addition to Tylenol as needed for pain/ fever. If she does not improve with treatment, she should return to the clinic for further evaluation. She verbalizes understanding and agrees to plan. Orders: Orders AMB Rapid Strep Screen Today J02.9 - Acute pharyngitis, unspecified Medications: New azithromycin For 250 mg dose pack: take 500 mg today (day 1), then 250 mg for 4 days (days 2-5) PO 6 tabs 0RF J02.0 - Streptococcal pharyngitis Coding Level of Care Code Est Pt Level 3 (33179) Diagnoses Pharyngitis due to Streptococcus species J02.0 Pharyngitis/tonsillitis etiology: streptococcus
[2023-03-10 09:10] VITALS: BP 140/70; PULSE 68; TEMP 36.6; O2SAT 98; BMI 37.8
== END 2023-03-10 09:35 | disposition home or self-care (01) ==
PROVIDERS: PCP Internal Medicine; Visit Provider Nurse Practitioner Family
DX: J02.9 Acute pharyngitis, unspecified (principal); J02.0 Streptococcal pharyngitis
CPT/HCPCS: 87880; 99213

== ENCOUNTER 2023-05-12 08:34 | Outpatient (AMB) | payer OTHER, SELFPAY ==
[2023-05-12 08:38] VITALS: BP 124/70; PULSE 80; TEMP 36.6; O2SAT 97; BMI 38.3
--- NOTE | 2023-05-12 08:38 | MHC.OFFWIV ---
Intake Vital Signs 05/12/23 08:38 Height 5 ft 4 in Weight 223 lb BMI 38.3 BP 124/70 Blood Pressure Location Lt brachial Position Sitting Pulse 80 Pulse Source Pulse Oximeter Temp 97.9 F Temp Source Temporal Artery Scan Pulse Oximetry (%) 97 Oxygen Delivery Method Room Air Intake Visit Reasons: EP UTI Intake Note: pt is here today for UTI started 1 week ago Patient Tobacco Use Status: Never used Tobacco Allergies amoxicillin [AMOXICILLIN] Allergy (Unknown, Verified 05/12/23 08:39) RASH, allergy egg Allergy (Unknown, Verified 05/12/23 08:39) ITCHY THROAT/RASH Penicillins [PENICILLINS] Allergy (Unknown, Verified 05/12/23 08:39) RASH SHELLFISH Allergy (Severe, Uncoded 03/10/23 09:09) THROAT SWELLING Do you need a note to return to daycare/school/sports/work: No HPI HPI Comments History of Present Illness Details COncern UTI Has been ongoing x 1 week She said + dysuria, frequency, urgency, suprapubic pain and lower back pain Pain level 8/10 Drinking cranberry juice and OTC cranberry pills without relief She felt fever 2 days ago and yesterday felt fatigue No hematuria or vaginal discharge PFSH Medical History Annual physical exam Dupuytren's contracture of right hand Ankle pain, left Venous insufficiency of both lower extremities HTN (hypertension) Hyperglycemia Diabetic eye exam Osteoarthritis Environmental and seasonal allergies History of mammogram Prediabetes Glaucoma Depression Vitamin D deficiency Surgical History H/O colonoscopy History of surgery History of prior ablation treatment History of laparoscopic cholecystectomy Family History Father Alzheimer's disease Dementia COPD (chronic obstructive pulmonary disease) HTN (hypertension) CVD (cardiovascular disease) Diabetes mellitus Mother Diabetes mellitus Liver cancer Maternal Grandfather No problems noted. Maternal Grandmother No problems noted. Paternal Grandfather No problems noted. Paternal Grandmother No problems noted. Brother No problems noted. Sister Diabetes mellitus Renal failure Sister No problems noted. Sister No problems noted. Sister No problems noted. Sister No problems noted. Son No problems noted. Son No problems noted. Son No problems noted. Daughter No problems noted. 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 Cognitive needs: No Hearing needs: No Vision needs: No Review of Systems Const Denies chills, Denies fatigue and Reports fever(s) ENT Denies nasal discharge Card Denies chest pain and Denies dyspnea Resp Denies cough and Denies dyspnea GI Reports abdominal pain Denies hematuria, Reports difficulty voiding, Denies post void dribbling (denies incontinence), Reports dysuria, Reports urinary hesitancy, Reports urinary urgency and Denies vaginal discharge Musc Reports back pain (lower) Endo Denies fatigue Physical Exam Vital Signs: Last Vital Signs Temp 97.9 F 05/12/23 08:38 Pulse 80 05/12/23 08:38 BP 124/70 05/12/23 08:38 Pulse Ox 97 05/12/23 08:38 Oxygen Delivery Method Room Air 05/12/23 08:38 BMI result Body Mass Index 38.3 General: Non-toxic, NAD. Speaking full sentences. Skin: Warm dry throughout Eye: EOMI Respiratory: CTA bilaterally. No wheezes, rales or rhonchi Cardiac: RRR. No murmur Abdominal: BS x 4 quadrants. No rebound or guarding. Minimal suprapubic tenderness to palpation. No CVAT MSK: Full ROM extremities. + minimal bilateral lumbar paravertebral muscle tenderness to palpation Neurology: A/O. No aphasia or facial droop. Gait without abnormality Psych: Good mood and affect Results AMB Urinalysis, Automated UA Leukoctes 500 Pamela/uL Last Edit by Khalida Shah on 05/12/23 09:00 UA Nitrite Last Edit by Khalida Shah on 05/12/23 09:00 UA Urobilinogen 0.2 mg/dL Last Edit by Khalida Shah on 05/12/23 09:00 UA Protein 15 mg/dL Last Edit by Khalida Shah on 05/12/23 09:00 UA pH 6.0 Last Edit by Khalida Shah on 05/12/23 09:00 UA Blood 200 Kalia/uL Last Edit by Khalida Shah on 05/12/23 09:00 UA Specific [place] 1.015 Last Edit by Khalida Shah on 05/12/23 09:00 UA Ketone Last Edit by Khalida Shah on 05/12/23 09:00 UA Bilirubin 0 mg/dL Last Edit by Khalida Shah on 05/12/23 09:00 UA Glucose 0 mg/dL Last Edit by Khalida Shah on 05/12/23 09:00 Results Reviewed Results Reviewed: Laboratory Last Values Urine pH (Auto) 6.0 05/12/23 08:59 Specific [place] (Auto) 1.015 05/12/23 08:59 Urine Protein (Auto) 15 mg/dL 05/12/23 08:59 Glucose (UA)(Auto) 0 mg/dL 05/12/23 08:59 Urine Blood (Auto) 200 Kalia/uL 05/12/23 08:59 Urine Bilirubin (Auto) 0 mg/dL 05/12/23 08:59 Urine Urobilinogen (Auto) 0.2 mg/dL 05/12/23 08:59 Leukocyte Esterase (Auto) 500 Pamela/uL 05/12/23 08:59 Assessment & Plan Assessment & Plan (1) Urinary tract infection: Code(s): N39.0 - Urinary tract infection, site not specified Qualifiers: Urinary tract infection type: acute cystitis Hematuria presence: with hematuria Qualified Code(s): N30.01 - Acute cystitis with hematuria Plan: Patient seen and evaluated. Urine culture sent Macrobid to pharmacy; took in october 22 and improved without interaction to allergies/meds Increase fluids F/u With PCP Patient gave verbal understanding and had no additional questions or concerns at time of discharge All questions answered Orders: Orders Urine Culture Today N39.0 - Urinary tract infection, site not specified Medications: New nitrofurantoin monohyd/m-cryst 100 mg (Macrobid) must administer with a meal/food 100 mg PO Q12H 5 days 10 caps 0RF Coding Level of Care Code Est Pt Level 3 (05793) Diagnoses Acute cystitis with hematuria N30.01 Urinary tract infection type: acute cystitis Hematuria presence: with hematuria
== END 2023-05-12 10:23 | disposition home or self-care (01) ==
PROVIDERS: PCP Internal Medicine; Visit Provider Physician Assistant
DX: N30.01 Acute cystitis with hematuria (principal)
CPT/HCPCS: 99213

== ENCOUNTER 2023-05-12 12:01 | Outpatient (REF) | payer OTHER, SELFPAY | END 2023-05-12 12:02 | disposition home or self-care (01) | LOC: HO.LNP 12:01 | PROVIDERS: Visit Provider Physician Assistant | DX: N39.0 Urinary tract infection, site not specified (principal) | CPT/HCPCS: 87086; 87088; 87147; 87186 ==

== ENCOUNTER 2023-05-19 08:31 | Outpatient (AMB) | payer OTHER, SELFPAY ==
[2023-05-19 08:57] VITALS: BP 140/90; PULSE 61; TEMP 36.6; O2SAT 98; BMI 38.4
--- NOTE | 2023-05-19 08:57 | MHC.OFFWIV ---
Intake Vital Signs 05/19/23 08:57 Height 5 ft 4 in Weight 224 lb BMI 38.4 BP 140/90 H Blood Pressure Location Lt brachial Position Sitting Pulse 61 Pulse Source Pulse Oximeter Temp 97.9 F Temp Source Temporal Artery Scan Pulse Oximetry (%) 98 Oxygen Delivery Method Room Air Intake Visit Reasons: EP UTI Intake Note: pt is here today for UTI started 1 week ago Patient Tobacco Use Status: Never used Tobacco Allergies amoxicillin [AMOXICILLIN] Allergy (Unknown, Verified 05/19/23 09:37) RASH, allergy egg Allergy (Unknown, Verified 05/19/23 09:37) ITCHY THROAT/RASH Penicillins [PENICILLINS] Allergy (Unknown, Verified 05/19/23 09:37) RASH SHELLFISH Allergy (Severe, Uncoded 05/19/23 09:37) THROAT SWELLING Medication List - Last Reconciled 05/19/23 by Qamar Cartwright MD albuterol sulfate 90 mcg/actuation 2 puffs inhalation Q8H apixaban 5 mg PO BID blood sugar diagnostic (Intuitive BiosciencesTouch Ultra Test strips) 1 qd blood-glucose meter ([employer]uch Ultra2 Meter) As directed cholecalciferol (vitamin D3) 50 mcg (2 x 25 mcg (1,000 unit)) PO DAILY 90 days latanoprost (PF) 0.005% 1 drp ophthalmic (eye) DAILY meclizine 12.5 mg PO BID PRN metoprolol succinate ER (Toprol XL) 12.5 mg (1/2 x 25 mg) PO DAILY nitrofurantoin monohyd/m-cryst 100 mg (Macrobid) 100 mg PO Q12H 5 days olmesartan 20 mg PO DAILY rosuvastatin 10 mg PO DAILY sertraline 25 mg PO DAILY timolol maleate 0.5% 1 drp ophthalmic-Right QAM Do you need a note to return to daycare/school/sports/work: No HPI EP UTI HPI Details 73-year-old female presents to the office for a sick visit. Patient completed a course of antibiotics for bladder infection. She feels the symptoms have not completely resolved. Continues to have burning sensation in the bladder and discomfort in the lower back. Increased frequency of urination present. No fevers or chills. [facility] Medical History Annual physical exam Dupuytren's contracture of right hand Ankle pain, left Venous insufficiency of both lower extremities HTN (hypertension) Hyperglycemia Diabetic eye exam Osteoarthritis Environmental and seasonal allergies History of mammogram Prediabetes Glaucoma Depression Vitamin D deficiency Surgical History H/O colonoscopy History of surgery History of prior ablation treatment History of laparoscopic cholecystectomy Family History Father Alzheimer's disease Dementia COPD (chronic obstructive pulmonary disease) HTN (hypertension) CVD (cardiovascular disease) Diabetes mellitus Mother Diabetes mellitus Liver cancer Maternal Grandfather No problems noted. Maternal Grandmother No problems noted. Paternal Grandfather No problems noted. Paternal Grandmother No problems noted. Brother No problems noted. Sister Diabetes mellitus Renal failure Sister No problems noted. Sister No problems noted. Sister No problems noted. Sister No problems noted. Son No problems noted. Son No problems noted. Son No problems noted. Daughter No problems noted. 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 Cognitive needs: No Hearing needs: No Vision needs: No Physical Exam Vital Signs: Last Vital Signs Temp 97.9 F 05/19/23 08:57 Pulse 61 05/19/23 08:57 BP 140/90 H 05/19/23 08:57 Pulse Ox 98 05/19/23 08:57 Oxygen Delivery Method Room Air 05/19/23 08:57 BMI result Body Mass Index 38.4 General: Yes Bimanual renal exam normal bilaterally, Yes bladder normal to palpation and Yes no CVA tenderness Bimanual exam- vagina & uterus: bladder normal to palpation Back/Spine/Pelvis Back: no CVA tenderness Results AMB Urinalysis, Automated UA Leukoctes 0 Pamela/uL Last Edit by Khalida Shah on 05/19/23 09:35 UA Nitrite Negative Last Edit by Khalida Shah on 05/19/23 09:35 UA Urobilinogen 0.2 mg/dL Last Edit by Khalida Shah on 05/19/23 09:35 UA Protein 0 mg/dL Last Edit by Khalida Shah on 05/19/23 09:35 UA pH 6.0 Last Edit by Khalida Shah on 05/19/23 09:35 UA Blood 0 Kalia/uL Last Edit by Khalida Shah on 05/19/23 09:35 UA Specific [place] 1.015 Last Edit by Khalida Shah on 05/19/23 09:35 UA Ketone Negative Last Edit by Khalida Shah on 05/19/23 09:35 UA Bilirubin 0 mg/dL Last Edit by Khalida Shah on 05/19/23 09:35 UA Glucose 0 mg/dL Last Edit by Khalida Shah on 05/19/23 09:35 Results Reviewed Results Reviewed: Laboratory Last Values Urine pH (Auto) 6.0 05/19/23 09:34 Specific [place] (Auto) 1.015 05/19/23 09:34 Urine Protein (Auto) 0 mg/dL 05/19/23 09:34 Glucose (UA)(Auto) 0 mg/dL 05/19/23 09:34 Urine Ketones (Auto) Negative 05/19/23 09:34 Urine Blood (Auto) 0 Kalia/uL 05/19/23 09:34 Urine Nitrite (Auto) Negative 05/19/23 09:34 Urine Bilirubin (Auto) 0 mg/dL 05/19/23 09:34 Urine Urobilinogen (Auto) 0.2 mg/dL 05/19/23 09:34 Leukocyte Esterase (Auto) 0 Pamela/uL 05/19/23 09:34 Assessment & Plan Assessment & Plan (1) Urinary tract infection: Code(s): N39.0 - Urinary tract infection, site not specified Qualifiers: Urinary tract infection type: acute cystitis Hematuria presence: with hematuria Qualified Code(s): N30.01 - Acute cystitis with hematuria Plan: Bactrim called in. Patient would benefit from the using Pyridium. She declines the medication as it causes stomach discomfort. Urinalysis reviewed. Coding Level of Care Code Est Pt Level 3 (69198) Diagnoses Acute cystitis with hematuria N30.01 Urinary tract infection type: acute cystitis Hematuria presence: with hematuria
== END 2023-05-19 09:54 | disposition home or self-care (01) ==
PROVIDERS: PCP Internal Medicine; Visit Provider Internal Medicine
DX: N30.01 Acute cystitis with hematuria (principal)
CPT/HCPCS: 99213

== ENCOUNTER 2023-06-08 07:36 | Outpatient (REF) | payer OTHER, SELFPAY ==
[2023-06-08 10:15] LABS: MANUAL DIFF FLAG NO
[2023-06-08 10:24] LABS: Basophils Percent Auto 0.6 % (0-2); Eosinophils Absolute Auto 0.3 X10*3/uL (0.0-0.4); Eosinophils Percent Auto 4.1 % (0-4); Hemoglobin 11.3 g/dl (12.0-16.0); Imm Gran Abs Auto 0.01 X10*3/uL (0.00-0.03); Imm Gran Pct Auto 0.1 % (0.0-0.4); Lymphocytes Absolute Auto 3.2 X10*3/uL (1.2-4.9); Lymphocytes Percent Auto 44.9 % (20-40); Mean Corpuscular HGB Conc 32.3 g/dl (31.0-35.0); Mean Corpuscular Hemoglobin 29.5 pg (27.0-33.0); Mean Corpuscular Volume 91.4 fL (80.0-98.0); Mean Platelet Volume 10.1 fL (9.4-12.3); Monocytes Absolute Auto 0.6 X10*3/uL (0.1-1.2); Monocytes Percent Auto 8.8 % (2-11); Neutrophils Absolute Auto 2.9 x10*3/uL (2.0-8.3); Neutrophils Percent Auto 41.5 % (45-73); Platelet Count 350 X10*3/uL (160-400); Red Blood Count 3.83 X10*6/uL (4.20-5.50); Red Cell Distribution Width 13.2 % (11.0-16.0)
[2023-06-08 11:10] LABS: Alanine Aminotransferase 12 U/L (0-31); Albumin Level 4.2 g/dL (3.5-5.0); Alkaline Phosphatase 68 U/L (39-117); Anion Gap 11 (12-20); Aspartate Amino Transferase 17 U/L (5-31); Bilirubin Total 0.9 mg/dL (0.0-1.0); Blood Urea Nitrogen 19 mg/dL (9-16); Calcium 9.4 mg/dL (8.4-10.2); Carbon Dioxide 25 mmol/L (22-29); Chloride 108 mmol/L (96-108); Cholesterol 114 mg/dL (<200); Estimated Glomerular Filt Rate 48; Glucose Fasting 118 mg/dL (60-99); HDL Cholesterol 45 mg/dL (>40); LDL Cholesterol Calculated 53 mg/dL (<100); Sodium 140 mmol/L (135-145); Triglycerides 81 mg/dL (<150)
[2023-06-08 11:11] LABS: TSH reflex Free T4 1.77 uIU/mL (0.32-4.0)
[2023-06-08 11:16] LABS: Estimated Average Glucose 140 mg/dL; Hemoglobin A1c % 6.5 % (<6.0)
[2023-06-08 11:20] LABS: Creatinine Urine 131.22 mg/dL; Microalbum/Creatinine Ratio Ur 12.9 ug/mg cr (<30)
== END 2023-06-08 07:37 | disposition home or self-care (01) ==
LOC: HO.HMGCLDS 07:36
PROVIDERS: PCP Internal Medicine; Visit Provider Internal Medicine
DX: I10 Essential (primary) hypertension (principal); N39.0 Urinary tract infection, site not specified; R73.9 Hyperglycemia, unspecified
CPT/HCPCS: 36415; 80053; 80061; 82043; 82570; 83036; 84443; 85025

== ENCOUNTER 2023-06-16 13:25 | Outpatient (AMB) | payer OTHER, SELFPAY ==
--- NOTE | 2023-06-16 13:29 | A.OFFPC_ITS ---
Vital Signs 06/16/23 13:30 Height 5 ft 4 in Weight 224 lb BMI 38.4 BP 124/68 Blood Pressure Location Rt brachial Position Sitting Pulse 55 Pulse Source Pulse Oximeter Pulse Oximetry (%) 99 Oxygen Delivery Method Room Air Intake Visit Reasons: Annual PE, 6 month fu Intake Note: Pt is here today for PE. Allergies amoxicillin [AMOXICILLIN] Allergy (Unknown, Verified 06/16/23 13:35) RASH, allergy egg Allergy (Unknown, Verified 06/16/23 13:35) ITCHY THROAT/RASH Penicillins [PENICILLINS] Allergy (Unknown, Verified 06/16/23 13:35) RASH SHELLFISH Allergy (Severe, Uncoded 06/16/23 13:35) THROAT SWELLING Medication List - Last Reconciled 06/16/23 by Kathi Howell MD albuterol sulfate 90 mcg/actuation 2 puffs inhalation Q8H apixaban 5 mg PO BID blood sugar diagnostic (Little Black BagTouch Ultra Test strips) 1 qd blood-glucose meter (Little Black BagTouch Ultra2 Meter) As directed cholecalciferol (vitamin D3) 50 mcg (2 x 25 mcg (1,000 unit)) PO DAILY 90 days latanoprost (PF) 0.005% 1 drp ophthalmic (eye) DAILY meclizine 12.5 mg PO BID PRN metoprolol succinate ER (Toprol XL) 12.5 mg (1/2 x 25 mg) PO DAILY olmesartan 20 mg PO DAILY rosuvastatin 10 mg PO DAILY sertraline 25 mg PO DAILY sulfamethoxazole-trimethoprim 800-160 mg (Bactrim DS) 1 tab PO BID 5 days timolol maleate 0.5% 1 drp ophthalmic-Right QAM Tobacco use date assessed: 06/16/23 Fall risk assessment: No Falls in past year Last assessed Fall Risk: 06/16/23 Dental Screening Dental Screen Date: 06/16/23 Did you have a dental visit in the last 12 months?: Yes Did you have a dental problem in the last 6 months where you did not have access to dental care?: No Was dental information given to patient?: Patient has dentist HPI Annual PE, 6 month fu HPI Details Patient presents for a physical. Patient reports intermittent palpitations worse with physical activity lasting a few minutes. She follows up with cardiology for paroxysmal AFib and has been taking metoprolol and Eliquis. [facility] Medical History (Updated 06/16/23 @ 14:21 by Kathi Howell MD) Annual physical exam Dupuytren's contracture of right hand Ankle pain, left Venous insufficiency of both lower extremities Diabetic eye exam Osteoarthritis Environmental and seasonal allergies History of mammogram Prediabetes Glaucoma Depression Vitamin D deficiency Surgical History H/O colonoscopy History of surgery History of prior ablation treatment History of laparoscopic cholecystectomy Family History Father Alzheimer's disease Dementia COPD (chronic obstructive pulmonary disease) HTN (hypertension) CVD (cardiovascular disease) Diabetes mellitus Mother Diabetes mellitus Liver cancer Maternal Grandfather No problems noted. Maternal Grandmother No problems noted. Paternal Grandfather No problems noted. Paternal Grandmother No problems noted. Brother No problems noted. Sister Diabetes mellitus Renal failure Sister No problems noted. Sister No problems noted. Sister No problems noted. Sister No problems noted. Son No problems noted. Son No problems noted. Son No problems noted. Daughter No problems noted. 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 1. Little interest or pleasure in doing things: not at all 2. Feeling down, depressed, or hopeless: not at all 3. Trouble falling or staying asleep, or sleeping too much: not at all 4. Feeling tired or having little energy: not at all 5. Poor appetite or overeating: not at all 6. Feeling bad about yourself - or that you are a failure or have let yourself or your family down: not at all 7. Trouble concentrating on things, such as reading the newspaper or watching television: not at all 8. Moving or speaking so slowly that other people could have noticed. Or the opposite - being so fidgety or restless that you have been moving around a lot more than usual: not at all 9. Thoughts that you would be better off or of hurting yourself in some way: not at all Total score: 0 Depression Screening Interpretation: Negative Depression Screening Done: Yes Source: Developed by Drs. Moose Alberto, Carmela Delgado, Christo Álvarez and colleagues, with an educational jefe from [employer]. Thrive Questionnaire Date Thrive assessed: 06/16/23 I am a: Patient What is your living situation today?: I have a steady place to live Within the past 12 months, did the food you bought not last and you didn't have the money to get more?: Never true Within the past 12 months, did you worry whether your food would run out before you got money to buy more?: Never true Do you have trouble paying for medicines?: No Do you have trouble getting transportation to medical appointments?: No Do you have trouble paying your heating and electricity bill?: No Do you have trouble taking care of your child, family member or friend?: No Do you have trouble with day-to-day activities such as bathing, preparing meals, shopping, managing finances, etc.?: No Are you currently unemployed and looking for a job?: No Are you interested in more education?: No Please select the resources that you would like help with: None THRIVE Score: 0 AUDIT C Alcohol Use Questionnaire (AUDIT-C) 1. How often do you have a drink containing alcohol?: Never 3. How often do you have six or more drinks on one occasion?: Never Total Score: 0 MAGDALENA-7 AMB Questionnaire MAGDALENA-7 Date MAGDALENA - 7 assessed: 06/16/23 Feeling nervous, anxious, or on edge: 0 = Not at all Not being able to stop or control worryin = Not at all Worrying too much about different things: 0 = Not at all Trouble relaxin = Not at all Being so restless that it is hard to sit still: 0 = Not at all Becoming easily annoyed or irritable: 0 = Not at all Feeling afraid as if something awful might happen: 0 = Not at all Total MAGDALENA-7 score (0-4 normal; 5-9 mild; 10-14 moderate; 15-21 severe): 0 Source: Developed by Drs. Moose Alberto, Carmela Delgado, Christo Álvarez and colleagues, with an educational jefe from [employer]. Review of Systems Const All systems reviewed & are unremarkable except as noted in HPI and below Reports no additional complaints Eyes Reports no additional complaints Card Reports no additional complaints Resp Reports no additional complaints GI Reports no additional complaints Reports no additional complaints Physical exam (Primary Care) Vital Signs: Last Vital Signs Pulse 55 06/16/23 13:30 BP 124/68 06/16/23 13:30 Pulse Ox 99 06/16/23 13:30 Oxygen Delivery Method Room Air 06/16/23 13:30 BMI result Body Mass Index 38.4 Tobacco/Smoking Status: Tobacco use Status Tobacco use date assessed 06/16/23 06/16/23 13:39 Patient Tobacco Use Status Never used Tobacco 06/16/23 13:39 e-Cigarette/Vaping Use Never Used 06/16/23 13:39 Depression Screening Interpretation: Negative Thrive Assessment: Date of Thrive Assessment Date Thrive assessed 10/07/22 06/16/23 13:39 Const General: no acute distress HENMT Head: Yes normal to inspection Ears: hearing grossly normal bilaterally Mouth: Normal oral and palatal mucosa present Eyes General: appearance normal, both eyes and all related structures Neck Neck: Yes supple Resp Effort & Inspection: normal respiratory effort Auscultation: clear to auscultation bilaterally Cardio Rhythm: regular rhythm Heart sounds: S1 normal heart sound present and S2 normal heart sound present GI Inspection: Yes normal to inspection Palpation (GI): Soft to palpation Percussion: Yes normal to percussion Auscultation: normal bowel sounds Assessment and Plan Assessment & Plan (1) PAF (paroxysmal atrial fibrillation): Comment: f/u Dr. Marcos , CT coronary angiogram 02/21 25% RCA stenosis, proximal LAD small calcification, started on Crestor Code(s): I48.0 - Paroxysmal atrial fibrillation Plan: On Eliquis and low-dose of metoprolol (2) Anemia: Code(s): D64.9 - Anemia, unspecified Plan: Check iron count and B12 level (3) Diabetes type 2, controlled: Comment: A1C 6.5 06/23 Code(s): E11.9 - Type 2 diabetes mellitus without complications Plan: Goals: Increase physical activity follow ADA diet check A1c in 3 months for the goal of less than 6% Barriers: Sedentary lifestyle (4) Annual physical exam: Code(s): Z00.00 - Encounter for general adult medical examination without abnormal findings Plan: Well-balanced diet regular physical activity discussed with the patient weight loss was recommended. Creatinine was elevated but patient took Bactrim recently. Basic metabolic panel will be checked in 2 weeks. Patient was advised to avoid NSAIDs and dehydration. Follow-up in 3 months with a fasting labs before Orders: Orders Hemoglobin A1c 3 Months E11.9 - Type 2 diabetes mellitus without complications, R73.9 - Hyperglycemia, unspecified Vitamin B12 and Folate 2 Weeks D64.9 - Anemia, unspecified Basic Metabolic Panel 2 Weeks D64.9 - Anemia, unspecified, I48.0 - Paroxysmal atrial fibrillation Comprehensive [place]. Panel Fast 3 Months E11.9 - Type 2 diabetes mellitus without complications, R73.9 - Hyperglycemia, unspecified IRON PROFILE 2 Weeks D64.9 - Anemia, unspecified Medications: Refilled blood sugar diagnostic (OneTouch Ultra Test strips) 1 qd 100 ea 3RF Discontinued sulfamethoxazole-trimethoprim 800-160 mg (Bactrim DS) Discontinued Reason: Doctor's Order 1 tab PO BID 5 days 10 tabs 0RF Coding Level of Care Code Est Pt Prev Care >65y(49595) Diagnoses PAF (paroxysmal atrial fibrillation) I48.0 Anemia D64.9 Diabetes type 2, controlled E11.9 Annual physical exam Z00.00
[2023-06-16 13:30] VITALS: BP 124/68; PULSE 55; O2SAT 99; BMI 38.4
== END 2023-06-16 14:10 | disposition home or self-care (01) ==
PROVIDERS: PCP Internal Medicine; Visit Provider Internal Medicine
DX: I48.0 Paroxysmal atrial fibrillation (principal); D64.9 Anemia, unspecified; E11.9 Type 2 diabetes mellitus without complications; Z00.00 Encounter for general adult medical examination without abnormal findings
CPT/HCPCS: 99397

== ENCOUNTER 2023-07-01 08:12 | Outpatient (REF) | payer OTHER, SELFPAY ==
[2023-07-01 11:39] LABS: Albumin Level 4.5 g/dL (3.5-5.0); Anion Gap 15 (12-20); Blood Urea Nitrogen 24 mg/dL (9-16); Calcium 9.9 mg/dL (8.4-10.2); Carbon Dioxide 21 mmol/L (22-29); Chloride 106 mmol/L (96-108); Estimated Glomerular Filt Rate 56; Glucose Fasting 130 mg/dL (60-99); Glucose Random 131 mg/dL (60-115); Iron 67 mcg/dL (30-160); Potassium 4.3 mmol/L (3.3-5.1); Sodium 138 mmol/L (135-145); Total Protein 8.6 g/dL (6.5-8.0)
== END 2023-07-01 08:13 | disposition home or self-care (01) ==
LOC: HO.HMGCLDS 08:12
PROVIDERS: PCP Internal Medicine; Visit Provider Internal Medicine
DX: E11.9 Type 2 diabetes mellitus without complications (principal); R73.9 Hyperglycemia, unspecified; D64.9 Anemia, unspecified; I48.0 Paroxysmal atrial fibrillation
CPT/HCPCS: 36415; 80048; 80053; 82607; 82746; 83036; 83540

== ENCOUNTER 2023-08-31 13:31 | Outpatient (AMB) | payer OTHER, SELFPAY ==
[2023-08-31 13:39] VITALS: BP 140/70; PULSE 52; BMI 38.4
--- NOTE | 2023-08-31 13:39 | MHC.OFFVIS ---
Vital Signs 08/31/23 13:39 Height 5 ft 4 in Weight 223 lb 8.78 oz BMI 38.4 BP 140/70 H Blood Pressure Location Rt brachial Position Sitting Pulse 52 Pulse Source Monitor Intake Visit Reasons: 4 mth f/up Intake Note: pt is here for her 4 mth f/up/ pt state that she is doing find pt does have some of the palpitations but not an everyday. 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 Accompanied by: Self / Same As Patient Allergies amoxicillin [AMOXICILLIN] Allergy (Unknown, Verified 06/16/23 13:35) RASH, allergy egg Allergy (Unknown, Verified 06/16/23 13:35) ITCHY THROAT/RASH Penicillins [PENICILLINS] Allergy (Unknown, Verified 06/16/23 13:35) RASH SHELLFISH Allergy (Severe, Uncoded 06/16/23 13:35) THROAT SWELLING Medication List - Last Reconciled 08/31/23 by Christian Marcos MD albuterol sulfate 90 mcg/actuation 2 puffs inhalation Q8H apixaban 5 mg PO BID blood sugar diagnostic (OneTouch Ultra Test strips) 1 qd blood-glucose meter (OneTouch Ultra2 Meter) As directed cholecalciferol (vitamin D3) 50 mcg (2 x 25 mcg (1,000 unit)) PO DAILY 90 days latanoprost (PF) 0.005% 1 drp ophthalmic (eye) DAILY meclizine 12.5 mg PO BID PRN metoprolol succinate ER (Toprol XL) 12.5 mg (1/2 x 25 mg) PO DAILY olmesartan 20 mg PO DAILY rosuvastatin 10 mg PO DAILY sertraline 25 mg PO DAILY timolol maleate 0.5% 1 drp ophthalmic-Right QAM HPI Comments Details: Pleasant 73-year-old female who is here for f/u. She was in the emergency department recently when she presented with palpitations and chest discomfort. She was noticed to be in AFib with RVR. She was given IV medications and broke out of atrial fibrillation with improvement in all her symptoms. She was subsequently discharged from the emergency department with apixaban and metoprolol. Since then she has been doing much better with some palpitations off and on. She is wearing a 3 day Holter monitor currently. She has been experiencing some shortness of breath and central chest heaviness which happens when she is doing activities. She is saying these symptoms started after the episode of atrial fibrillation. Physically she is not very active but does activities at home. She is overweight but has never had a sleep study. She is unsure whether she snores at night because she lives by herself. She is denying any significant daytime sleepiness or headaches. 11/24/22: She returns for follow-up. Holter monitor done for 3 days which did not show atrial fibrillation. She is getting some palpitations lasting for few seconds but no prolonged episodes. She is complaining of vertigo. She also has exertional dyspnea and some chest discomfort. She was referred for stress Mibi where she was able to exercise for 5 minute 31 seconds and achieved 86% of maximum predicted heart rate with moderate shortness of breath and chest heaviness. No ECG changes were noticed and nuclear perfusion imaging was read as normal. No bleeding concerns currently with Eliquis. 03/09/22: She returns for follow-up. She was referred for coronary CTA on last visit due to equivocal exercise stress test. Coronary CTA showed no evidence of hemodynamically significant coronary artery disease. 25% proximal RCA stenosis was noted. Small calcification distal portion of LAD and left circumflex artery was normal. Mildly enlarged main pulmonary artery and borderline a large mid ascending aorta 3.9 cm. She is denying chest discomfort or shortness of breath. Palpitation lasting for few seconds just like she reported in October 2022. No bleeding concerns. 08/31/23: She returns for follow-up. She said over the last 2 months she had 2 episodes of atrial fibrillation approximately 1 month apart lasting for few hours. These were self-limiting. She was in [place] and it was fairly hot there. She is denying any chest discomfort. She has some dyspnea with exertion which has been ongoing for long time. [facility] Medical History (Updated 06/16/23 @ 14:21 by Kathi Howell MD) Annual physical exam Dupuytren's contracture of right hand Ankle pain, left Venous insufficiency of both lower extremities Diabetic eye exam Osteoarthritis Environmental and seasonal allergies History of mammogram Prediabetes Glaucoma Depression Vitamin D deficiency Surgical History H/O colonoscopy History of surgery History of prior ablation treatment History of laparoscopic cholecystectomy Family History Father Alzheimer's disease Dementia COPD (chronic obstructive pulmonary disease) HTN (hypertension) CVD (cardiovascular disease) Diabetes mellitus Mother Diabetes mellitus Liver cancer Maternal Grandfather No problems noted. Maternal Grandmother No problems noted. Paternal Grandfather No problems noted. Paternal Grandmother No problems noted. Brother No problems noted. Sister Diabetes mellitus Renal failure Sister No problems noted. Sister No problems noted. Sister No problems noted. Sister No problems noted. Son No problems noted. Son No problems noted. Son No problems noted. Daughter No problems noted. 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 Cognitive needs: No Hearing needs: No Vision needs: No Review of Systems Const Denies chills, Denies fatigue, Denies fever(s), Denies frequent falls, Denies weakness, Denies weight gain and Denies weight loss ENT Denies dizziness Card Denies chest pain, Denies leg edema, Denies lightheadedness, Denies palpitations, Denies dyspnea and Denies dyspnea on exertion Resp Denies cough, Denies dyspnea and Denies dyspnea on exertion GI Denies hematochezia Musc Denies abnormal gait, Denies muscle weakness, Denies numbness, Denies radiating pain into limb and Denies tingling Neuro Denies abnormal gait, Denies dizziness, Denies frequent falls, Denies numbness, Denies tingling and Denies weakness Endo Denies fatigue and Denies palpitations Physical Exam Vital Signs: Last Vital Signs Pulse 52 08/31/23 13:39 BP 140/70 H 08/31/23 13:39 BMI result Body Mass Index 38.4 GENERAL APPEARANCE: in no acute distress, pleasant. NECK: no carotid bruit, no jugular venous distention. SKIN: no suspicious lesions, warm and dry. HEART: no murmurs, regular rate and rhythm. LUNGS: clear to auscultation bilaterally. ABDOMEN: soft, nontender. EXTREMITIES: no edema. PERIPHERAL PULSES: equal. NEUROLOGIC: No gross deficits, AAO X 3 Office Procedures EKG Details: Sinus bradycardia 52 beats per minute, normal axis, normal ECG, QTC 409 milliseconds. [id number], Complete Assessment & Plan Assessment & Plan (1) PAF (paroxysmal atrial fibrillation): Comment: f/u Dr. Marcos , CT coronary angiogram 02/21 25% RCA stenosis, proximal LAD small calcification, started on Crestor Code(s): I48.0 - Paroxysmal atrial fibrillation Category: Medical Plan Pleasant 73 year female who is here for follow-up. EKGs showing sinus bradycardia. She is on timolol and oral metoprolol succinate 12.5 mg daily. She had 2 episodes of atrial fibrillation over the last 2 months. We discussed about changing strategy and stopping metoprolol and adding Multaq versus monitoring for now. The patient wishes to just be monitored as episodes are not very frequent and are self-limiting. She will see us back in few months. Thank you for allowing me to participate in the care of your patient. Please feel free to contact me if you have any questions. Coding Level of Care Code Est Pt Level 4 (31046) Diagnoses PAF (paroxysmal atrial fibrillation) I48.0 CPT Codes EKG - CPT: 14383-[id number], Complete ([id number])
== END 2023-08-31 14:08 | disposition home or self-care (01) ==
PROVIDERS: PCP Internal Medicine; Visit Provider Internal Medicine Cardiovascular Disease
DX: I48.0 Paroxysmal atrial fibrillation (principal)
CPT/HCPCS: 93010; 99214

== ENCOUNTER → 2023-08-31 13:31 | Outpatient (BNVA) | payer OTHER, SELFPAY | PROVIDERS: PCP Internal Medicine; Visit Provider Internal Medicine Cardiovascular Disease | DX: I48.0 Paroxysmal atrial fibrillation (principal); R06.00 Dyspnea, unspecified | CPT/HCPCS: 93005; 99212 ==

== ENCOUNTER 2023-09-25 07:00 | Outpatient (REF) | payer OTHER, SELFPAY ==
[2023-09-25 10:31] LABS: MANUAL DIFF FLAG NO
[2023-09-25 10:39] LABS: Basophils Percent Auto 0.5 % (0-2); Eosinophils Absolute Auto 0.2 X10*3/uL (0.0-0.4); Eosinophils Percent Auto 3.1 % (0-4); Hematocrit 35.9 % (37.0-47.0); Hemoglobin 11.7 g/dl (12.0-16.0); Imm Gran Abs Auto 0.02 X10*3/uL (0.00-0.03); Imm Gran Pct Auto 0.3 % (0.0-0.4); Lymphocytes Absolute Auto 2.7 X10*3/uL (1.2-4.9); Lymphocytes Percent Auto 36.6 % (20-40); Mean Corpuscular HGB Conc 32.6 g/dl (31.0-35.0); Mean Corpuscular Hemoglobin 29.6 pg (27.0-33.0); Mean Corpuscular Volume 90.9 fL (80.0-98.0); Mean Platelet Volume 10.2 fL (9.4-12.3); Monocytes Absolute Auto 0.6 X10*3/uL (0.1-1.2); Monocytes Percent Auto 8.4 % (2-11); Neutrophils Absolute Auto 3.8 x10*3/uL (2.0-8.3); Neutrophils Percent Auto 51.1 % (45-73); Platelet Count 332 X10*3/uL (160-400); Red Blood Count 3.95 X10*6/uL (4.20-5.50); White Blood Count 7.4 X10*3/uL (4.8-10.8)
[2023-09-25 10:59] LABS: Estimated Average Glucose 134 mg/dL; Hemoglobin A1c % 6.3 % (<6.0)
[2023-09-25 11:05] LABS: Alanine Aminotransferase 11 U/L (0-31); Albumin Level 4.4 g/dL (3.5-5.0); Alkaline Phosphatase 70 U/L (39-117); Anion Gap 14 (12-20); Aspartate Amino Transferase 18 U/L (5-31); Bilirubin Total 0.8 mg/dL (0.0-1.0); Blood Urea Nitrogen 22 mg/dL (9-16); Calcium 9.5 mg/dL (8.4-10.2); Carbon Dioxide 23 mmol/L (22-29); Chloride 105 mmol/L (96-108); Estimated Glomerular Filt Rate 44; Glucose Fasting 122 mg/dL (60-99); Iron 63 mcg/dL (30-160); Lactate Dehydrogenase 170 U/L (122-220); Percent Iron Saturation 24 % (15-50); Potassium 4.3 mmol/L (3.3-5.1); Sodium 138 mmol/L (135-145); Total Iron Binding Capacity 260 mcg/dL (228-428); Unsaturated Iron Binding 197 ug/dL
[2023-09-25 11:38] LABS: Folate 12.7 ng/mL (> or = 4.0); Vitamin B12 478 pg/mL (200-900)
[2023-09-30 15:23] LABS: IgA 376 mg/dL (70-320); IgG 1619 mg/dL (600-1540); IgM 78 mg/dL (50-300)
== END 2023-09-25 07:01 | disposition home or self-care (01) ==
LOC: HO.HMGCLDS 07:00
PROVIDERS: PCP Internal Medicine; Visit Provider Internal Medicine
DX: D64.9 Anemia, unspecified (principal); E11.9 Type 2 diabetes mellitus without complications
CPT/HCPCS: 36415; 80053; 82607; 82746; 82784; 83036; 83540; 83615; 85025; 86334

== ENCOUNTER 2023-10-01 11:31 | Outpatient (AMB) | payer OTHER, SELFPAY ==
--- NOTE | 2023-10-01 11:58 | MHC.PC.OV ---
Vital Signs 10/01/23 11:59 Height 5 ft 4 in Weight 221 lb BMI 37.9 BP 122/66 Blood Pressure Location Rt brachial Position Sitting Pulse 64 Pulse Source Pulse Oximeter Pulse Oximetry (%) 98 Oxygen Delivery Method Room Air Intake Visit Reasons: 3 month Follow Up Intake Note: Pt is here today for 3 months follow up visit. Allergies amoxicillin [AMOXICILLIN] Allergy (Unknown, Verified 10/01/23 12:00) RASH, allergy egg Allergy (Unknown, Verified 10/01/23 12:00) ITCHY THROAT/RASH Penicillins [PENICILLINS] Allergy (Unknown, Verified 10/01/23 12:00) RASH SHELLFISH Allergy (Severe, Uncoded 10/01/23 12:00) THROAT SWELLING Tobacco use date assessed: 10/01/23 Fall risk assessment: No Falls in past year Last assessed Fall Risk: 10/01/23 Dental Screening Dental Screen Date: 06/16/23 HPI 3 month Follow Up HPI Details Patient presents for the follow-up of type 2 diabetes diet controlled hypertension hyperlipidemia. She complains of sore throat body aches low-grade fever for 24 hours. Her grandson was diagnosed with strep pharyngitis [facility] Medical History (Updated 10/01/23 @ 12:49 by Kathi Howell MD) Annual physical exam Dupuytren's contracture of right hand Ankle pain, left Venous insufficiency of both lower extremities Diabetic eye exam Osteoarthritis Environmental and seasonal allergies History of mammogram Prediabetes Glaucoma Depression Vitamin D deficiency Surgical History H/O colonoscopy History of surgery History of prior ablation treatment History of laparoscopic cholecystectomy Family History Father Alzheimer's disease Dementia COPD (chronic obstructive pulmonary disease) HTN (hypertension) CVD (cardiovascular disease) Diabetes mellitus Mother Diabetes mellitus Liver cancer Maternal Grandfather No problems noted. Maternal Grandmother No problems noted. Paternal Grandfather No problems noted. Paternal Grandmother No problems noted. Brother No problems noted. Sister Diabetes mellitus Renal failure Sister No problems noted. Sister No problems noted. Sister No problems noted. Sister No problems noted. Son No problems noted. Son No problems noted. Son No problems noted. Daughter No problems noted. 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 1. Little interest or pleasure in doing things: not at all 2. Feeling down, depressed, or hopeless: not at all 3. Trouble falling or staying asleep, or sleeping too much: not at all 4. Feeling tired or having little energy: several days 5. Poor appetite or overeating: not at all 6. Feeling bad about yourself - or that you are a failure or have let yourself or your family down: not at all 7. Trouble concentrating on things, such as reading the newspaper or watching television: not at all 8. Moving or speaking so slowly that other people could have noticed. Or the opposite - being so fidgety or restless that you have been moving around a lot more than usual: not at all 9. Thoughts that you would be better off or of hurting yourself in some way: not at all Total score: 1 Depression Screening Interpretation: Negative Depression Screening Done: Yes Source: Developed by Drs. Moose Alberto, Carmela Delgado, Christo Álvarez and colleagues, with an educational jefe from [employer]. Thrive Questionnaire Date Thrive assessed: 10/01/23 I am a: Patient What is your living situation today?: I have a steady place to live Within the past 12 months, did the food you bought not last and you didn't have the money to get more?: Never true Within the past 12 months, did you worry whether your food would run out before you got money to buy more?: Never true Do you have trouble paying for medicines?: No Do you have trouble getting transportation to medical appointments?: No Do you have trouble paying your heating and electricity bill?: No Do you have trouble taking care of your child, family member or friend?: No Do you have trouble with day-to-day activities such as bathing, preparing meals, shopping, managing finances, etc.?: No Are you currently unemployed and looking for a job?: No Are you interested in more education?: No Please select the resources that you would like help with: Housing/Chcf Currently or been in a relationship where the following occur: No concerns reported THRIVE Score: 0 AUDIT C Alcohol Use Questionnaire (AUDIT-C) 1. How often do you have a drink containing alcohol?: Never 3. How often do you have six or more drinks on one occasion?: Never Total Score: 0 MAGDALENA-7 AMB Questionnaire MAGDALENA-7 Date MAGDALENA - 7 assessed: 10/01/23 Feeling nervous, anxious, or on edge: 0 = Not at all Not being able to stop or control worryin = Not at all Worrying too much about different things: 0 = Not at all Trouble relaxin = Not at all Being so restless that it is hard to sit still: 0 = Not at all Becoming easily annoyed or irritable: 0 = Not at all Feeling afraid as if something awful might happen: 0 = Not at all Total MAGDALENA-7 score (0-4 normal; 5-9 mild; 10-14 moderate; 15-21 severe): 0 Source: Developed by Drs. Moose Alberto, Carmela Delgado, Christo Álvarez and colleagues, with an educational jefe from [employer]. Review of Systems Const All systems reviewed & are unremarkable except as noted in HPI and below ENT Reports no additional complaints Card Reports no additional complaints Resp Reports no additional complaints GI Reports no additional complaints Reports no additional complaints Physical exam (Primary Care) Vital Signs: Last Vital Signs Pulse 64 10/01/23 11:59 BP 122/66 10/01/23 11:59 Pulse Ox 98 10/01/23 11:59 Oxygen Delivery Method Room Air 10/01/23 11:59 BMI result Body Mass Index 37.9 Tobacco/Smoking Status: Tobacco use Status Tobacco use date assessed 10/01/23 10/01/23 12:03 Patient Tobacco Use Status Never used Tobacco 10/01/23 12:03 e-Cigarette/Vaping Use Never Used 10/01/23 12:03 PHQ-9: PHQ-9 Score PHQ-9: Total score 1 10/01/23 12:03 Depression Screening Interpretation: Negative Thrive Assessment: Date of Thrive Assessment Date Thrive assessed 10/01/23 10/01/23 12:03 Currently or been in a relationship where the following occur: No concerns reported Const General: no acute distress [facility] Ears: hearing grossly normal bilaterally General nose exam: Normal external nose present Mouth: Normal oral and palatal mucosa present Eyes General: appearance normal, both eyes and all related structures Neck Neck: Yes supple Resp Effort & Inspection: normal respiratory effort Auscultation: clear to auscultation bilaterally Cardio Rhythm: regular rhythm Heart sounds: S1 normal heart sound present and S2 normal heart sound present GI Inspection: Yes normal to inspection Percussion: Yes normal to percussion Auscultation: normal bowel sounds Assessment and Plan Assessment & Plan (1) CKD stage 3a, GFR 45-59 ml/min: Code(s): N18.31 - Chronic kidney disease, stage 3a Plan: Avoid nephrotoxin, monitor renal function, check renal and bladder ultrasound and urinalysis (2) PAF (paroxysmal atrial fibrillation): Comment: f/u Dr. Marcos , CT coronary angiogram 02/21 25% RCA stenosis, proximal LAD small calcification, started on Crestor Code(s): I48.0 - Paroxysmal atrial fibrillation Plan: Follow-up with the Cardiology (3) Diabetes type 2, controlled: Comment: A1C 6.5 06/23 Code(s): E11.9 - Type 2 diabetes mellitus without complications Plan: A1c is 6.3, continue ADA diet increase physical activity weight loss discussed with the patient Orders: Orders UA w Microscopic Today N18.31 - Chronic kidney disease, stage 3a Complete Blood Count Auto Diff 6 Months E11.9 - Type 2 diabetes mellitus without complications, I48.0 - Paroxysmal atrial fibrillation, N18.31 - Chronic kidney disease, stage 3a US renal BI Today N18.31 - Chronic kidney disease, stage 3a US bladder Today N18.31 - Chronic kidney disease, stage 3a Comprehensive [place]. Panel Fast 6 Months E11.9 - Type 2 diabetes mellitus without complications, I48.0 - Paroxysmal atrial fibrillation, N18.31 - Chronic kidney disease, stage 3a Hemoglobin A1c 6 Months E11.9 - Type 2 diabetes mellitus without complications, I48.0 - Paroxysmal atrial fibrillation, N18.31 - Chronic kidney disease, stage 3a Microalbumin, Random (w Creat) 6 Months E11.9 - Type 2 diabetes mellitus without complications, I48.0 - Paroxysmal atrial fibrillation, N18.31 - Chronic kidney disease, stage 3a Lipid Panel 6 Months E11.9 - Type 2 diabetes mellitus without complications, I48.0 - Paroxysmal atrial fibrillation, N18.31 - Chronic kidney disease, stage 3a Coding Level of Care Code Est Pt Level 4 (03754) Diagnoses CKD stage 3a, GFR 45-59 ml/min N18.31 PAF (paroxysmal atrial fibrillation) I48.0 Diabetes type 2, controlled E11.9
[2023-10-01 11:59] VITALS: BP 122/66; PULSE 64; O2SAT 98; BMI 37.9
== END 2023-10-01 13:10 | disposition home or self-care (01) ==
PROVIDERS: PCP Internal Medicine; Visit Provider Internal Medicine
DX: E11.22 Type 2 diabetes mellitus with diabetic chronic kidney disease (principal); N18.31 Chronic kidney disease, stage 3a; I48.0 Paroxysmal atrial fibrillation
CPT/HCPCS: 99214

== ENCOUNTER 2023-10-07 09:49 | Outpatient (REF) | payer OTHER, SELFPAY ==
--- NOTE | ~2023-10-07 | US_ITS ---
EXAMINATION: US RETROPERITONEAL COMPLETE (RENAL) CLINICAL INFORMATION: Chronic kidney disease, stage III a. COMPARISON: Ultrasound abdomen August 20, 2017. TECHNIQUE: Real-time imaging of the kidneys and bladder. FINDINGS: RIGHT KIDNEY: 11.2 x 4.3 x 6.1 cm (SAG x AP x TRV). The kidney is normal in size and contour. Renal cortical thickness is normal. No calculi or focal parenchymal lesions. No hydronephrosis. LEFT KIDNEY: 10.0 x 5.2 x 5.3 cm (SAG x AP x TRV). The kidney is normal in size, contour, and echogenicity. Renal cortical thickness is normal. No renal calculi or hydronephrosis. 1.4 cm simple appearing upper pole cyst. BLADDER: Well distended and normal. Bilateral ureteral jets are demonstrated. Prevoid bladder volume is 363 mL. Postvoid bladder volume is 40.6 mL. US/US retroperitoneal comp IMPRESSION: 1. No renal calculi or hydronephrosis of either kidney. 2. Small left renal cyst. 3. Prominent post void bladder residual of 41 mL. Electronically signed by: Danny Restrepo MD 10/31/2023 09:28 AM EDT
== END 2023-10-07 09:50 | disposition home or self-care (01) ==
LOC: HO.HMGCX 09:49
PROVIDERS: PCP Internal Medicine; Visit Provider Internal Medicine
DX: N18.31 Chronic kidney disease, stage 3a (principal)
CPT/HCPCS: 76770

== ENCOUNTER 2023-11-17 08:13 | Outpatient (REF) | payer OTHER, SELFPAY ==
--- NOTE | ~2023-11-17 | MM_ITS ---
EXAMINATION: MM SCREENING DIGITAL BREAST TOMOSYNTHESIS, BILATERAL CLINICAL INFORMATION: Screening. Asymptomatic. COMPARISON: Mammography: Comparison is made with available priors TECHNIQUE: Digital breast mammography with tomosynthesis is performed in both the craniocaudal and mediolateral oblique views along with computer-aided detection (CAD). FINDINGS: There are scattered areas of fibroglandular density (ACR BI-RADS breast composition Category b). There are no significant masses, abnormal calcifications, or other abnormalities. MM/MM tomosynthesis screening BI IMPRESSION: No mammographic evidence of malignancy. ASSESSMENT: BI-RADS BI-RADS 1 - Negative RECOMMENDATION: Routine annual mammography screening. 1 year F/U This examination should not preclude the clinical evaluation of a suspicious palpable abnormality. This patient's information was entered into a reminder system with a target due date for their next mammogram. Electronically signed by: Regi Rodriguez DO 11/30/2023 03:23 PM EDT
== END 2023-11-17 08:14 | disposition home or self-care (01) ==
LOC: HO.MAMMO 08:13
PROVIDERS: PCP Internal Medicine; Visit Provider Internal Medicine
DX: Z12.31 Encounter for screening mammogram for malignant neoplasm of breast (principal)
CPT/HCPCS: 77063; 77067

== ENCOUNTER → 2023-11-17 08:30 | Outpatient (BNV) | payer OTHER, SELFPAY | PROVIDERS: PCP Internal Medicine; Visit Provider Internal Medicine | DX: Z12.31 Encounter for screening mammogram for malignant neoplasm of breast (principal) | CPT/HCPCS: 77063; 77067 ==

== ENCOUNTER 2023-12-09 08:43 | Outpatient (AMB) | payer OTHER, SELFPAY ==
[2023-12-09 08:54] VITALS: BP 120/62; PULSE 69; BMI 38.4
--- NOTE | 2023-12-09 08:54 | MHC.OFFVIS ---
Vital Signs 12/09/23 08:54 Height 5 ft 4 in Weight 223 lb 8.78 oz BMI 38.4 BP 120/62 Blood Pressure Location Lt brachial Position Sitting Pulse 69 Pulse Source Pulse Oximeter Intake Visit Reasons: 3 mthf/up Vacation Planner Required: No Accompanied by: Self / Same As Patient Allergies amoxicillin [AMOXICILLIN] Allergy (Unknown, Verified 10/01/23 12:00) RASH, allergy egg Allergy (Unknown, Verified 10/01/23 12:00) ITCHY THROAT/RASH Penicillins [PENICILLINS] Allergy (Unknown, Verified 10/01/23 12:00) RASH SHELLFISH Allergy (Severe, Uncoded 10/01/23 12:00) THROAT SWELLING Medication List - Last Reconciled 12/09/23 by Christian Marcos MD albuterol sulfate 90 mcg/actuation 2 puffs inhalation Q8H apixaban 5 mg PO BID blood sugar diagnostic (VDI SpaceTouch Ultra Test strips) 1 qd blood-glucose meter (VDI SpaceTouch Ultra2 Meter) As directed cholecalciferol (vitamin D3) 50 mcg (2 x 25 mcg (1,000 unit)) PO DAILY 90 days latanoprost (PF) 0.005% 1 drp ophthalmic (eye) DAILY meclizine 12.5 mg PO BID PRN metoprolol succinate ER (Toprol XL) 12.5 mg (1/2 x 25 mg) PO DAILY olmesartan 20 mg PO DAILY rosuvastatin 10 mg PO DAILY 90 days sertraline 25 mg PO DAILY timolol maleate 0.5% 1 drp ophthalmic-Right QAM HPI Comments Details: Pleasant 73-year-old female who is here for f/u. She was in the emergency department recently when she presented with palpitations and chest discomfort. She was noticed to be in AFib with RVR. She was given IV medications and broke out of atrial fibrillation with improvement in all her symptoms. She was subsequently discharged from the emergency department with apixaban and metoprolol. Since then she has been doing much better with some palpitations off and on. She is wearing a 3 day Holter monitor currently. She has been experiencing some shortness of breath and central chest heaviness which happens when she is doing activities. She is saying these symptoms started after the episode of atrial fibrillation. Physically she is not very active but does activities at home. She is overweight but has never had a sleep study. She is unsure whether she snores at night because she lives by herself. She is denying any significant daytime sleepiness or headaches. 11/24/22: She returns for follow-up. Holter monitor done for 3 days which did not show atrial fibrillation. She is getting some palpitations lasting for few seconds but no prolonged episodes. She is complaining of vertigo. She also has exertional dyspnea and some chest discomfort. She was referred for stress Mibi where she was able to exercise for 5 minute 31 seconds and achieved 86% of maximum predicted heart rate with moderate shortness of breath and chest heaviness. No ECG changes were noticed and nuclear perfusion imaging was read as normal. No bleeding concerns currently with Rossi. 03/09/22: She returns for follow-up. She was referred for coronary CTA on last visit due to equivocal exercise stress test. Coronary CTA showed no evidence of hemodynamically significant coronary artery disease. 25% proximal RCA stenosis was noted. Small calcification distal portion of LAD and left circumflex artery was normal. Mildly enlarged main pulmonary artery and borderline a large mid ascending aorta 3.9 cm. She is denying chest discomfort or shortness of breath. Palpitation lasting for few seconds just like she reported in October 2022. No bleeding concerns. 08/31/23: She returns for follow-up. She said over the last 2 months she had 2 episodes of atrial fibrillation approximately 1 month apart lasting for few hours. These were self-limiting. She was in [place] and it was fairly hot there. She is denying any chest discomfort. She has some dyspnea with exertion which has been ongoing for long time. 12/09/2023: She is here for follow-up. She said she had an episode lasting for 6 hours of palpitations approximately 2 weeks ago. She also has been getting off and on palpitations here and there. She has some itchy feeling in her throat and has been coughing. It appears she has some sort of allergic issue going on. Not on lisinopril. [facility] Medical History (Updated 10/01/23 @ 12:49 by Kathi Howell MD) Annual physical exam Dupuytren's contracture of right hand Ankle pain, left Venous insufficiency of both lower extremities Diabetic eye exam Osteoarthritis Environmental and seasonal allergies History of mammogram Prediabetes Glaucoma Depression Vitamin D deficiency Surgical History H/O colonoscopy History of surgery History of prior ablation treatment History of laparoscopic cholecystectomy Family History Father Alzheimer's disease Dementia COPD (chronic obstructive pulmonary disease) HTN (hypertension) CVD (cardiovascular disease) Diabetes mellitus Mother Diabetes mellitus Liver cancer Maternal Grandfather No problems noted. Maternal Grandmother No problems noted. Paternal Grandfather No problems noted. Paternal Grandmother No problems noted. Brother No problems noted. Sister Diabetes mellitus Renal failure Sister No problems noted. Sister No problems noted. Sister No problems noted. Sister No problems noted. Son No problems noted. Son No problems noted. Son No problems noted. Daughter No problems noted. 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 Cognitive needs: No Hearing needs: No Vision needs: No Review of Systems Const Denies chills, Denies fatigue, Denies fever(s), Denies frequent falls, Denies weakness, Denies weight gain and Denies weight loss ENT Denies dizziness Card Denies chest pain, Denies leg edema, Denies lightheadedness, Denies palpitations, Denies dyspnea and Denies dyspnea on exertion Resp Denies cough, Denies dyspnea and Denies dyspnea on exertion GI Denies hematochezia Musc Denies abnormal gait, Denies muscle weakness, Denies numbness, Denies radiating pain into limb and Denies tingling Neuro Denies abnormal gait, Denies dizziness, Denies frequent falls, Denies numbness, Denies tingling and Denies weakness Endo Denies fatigue and Denies palpitations Physical Exam Vital Signs: Last Vital Signs Pulse 69 12/09/23 08:54 BP 120/62 12/09/23 08:54 BMI result Body Mass Index 38.4 GENERAL APPEARANCE: in no acute distress, pleasant. NECK: no carotid bruit, no jugular venous distention. SKIN: no suspicious lesions, warm and dry. HEART: no murmurs, regular rate and rhythm. LUNGS: clear to auscultation bilaterally. ABDOMEN: soft, nontender. EXTREMITIES: no edema. PERIPHERAL PULSES: equal. NEUROLOGIC: No gross deficits, AAO X 3 Assessment & Plan Assessment & Plan (1) PAF (paroxysmal atrial fibrillation): Comment: f/u Dr. Marcos , CT coronary angiogram 02/21 25% RCA stenosis, proximal LAD small calcification, started on Crestor Code(s): I48.0 - Paroxysmal atrial fibrillation Category: Medical Plan Pleasant 73 year female who is here for follow-up. She has background history of paroxysmal atrial fibrillation. She has been getting some symptoms and she had an episode lasting for 6 hours of palpitations couple of weeks ago. We have discussed previously to give her Multaq and I think given her long episode we should make this transition. I will stop the metoprolol and add Multaq 400 mg twice a day. On apixaban for anticoagulation. Overall clinically stable and will see us back in 3 months. Thank you for allowing me to participate in the care of your patient. Please feel free to contact me if you have any questions. Medications: New dronedarone (Multaq) must administer with a meal/food 400 mg PO BID 60 tabs 4RF Discontinued metoprolol succinate ER (Toprol XL) Discontinued Reason: Doctor's Order 12.5 mg (1/2 x 25 mg) PO DAILY 45 tabs 3RF Coding Level of Care Code Est Pt Level 4 (61342) Complex EM visit Add On G2211 Diagnoses PAF (paroxysmal atrial fibrillation) I48.0
== END 2023-12-09 09:20 | disposition home or self-care (01) ==
PROVIDERS: PCP Internal Medicine; Visit Provider Internal Medicine Cardiovascular Disease
DX: I48.0 Paroxysmal atrial fibrillation (principal)
CPT/HCPCS: 99214; G2211

== ENCOUNTER → 2023-12-09 08:43 | Outpatient (BNVA) | payer OTHER, SELFPAY | PROVIDERS: PCP Internal Medicine; Visit Provider Internal Medicine Cardiovascular Disease | DX: I48.0 Paroxysmal atrial fibrillation (principal) | CPT/HCPCS: 99212 ==

== ENCOUNTER 2023-12-18 11:43 | Outpatient (AMB) | payer OTHER, SELFPAY ==
--- NOTE | 2023-12-18 11:56 | AM.OFFWIN_ITS ---
Intake Vital Signs 12/18/23 11:57 Height 5 ft 4 in Weight 221 lb BMI 37.9 BP 130/80 Blood Pressure Location Rt brachial Position Sitting Pulse 68 Pulse Source Pulse Oximeter Pulse Oximetry (%) 98 Oxygen Delivery Method Room Air Intake Visit Reasons: EP-possible uti Intake Note: Patient here for burning when urinating, frequency she states she recently started a new medication last week and symptoms after starting it. Patient Tobacco Use Status: Never used Tobacco Allergies amoxicillin [AMOXICILLIN] Allergy (Unknown, Verified 12/18/23 11:58) RASH, allergy egg Allergy (Unknown, Verified 12/18/23 11:58) ITCHY THROAT/RASH Penicillins [PENICILLINS] Allergy (Unknown, Verified 12/18/23 11:58) RASH SHELLFISH Allergy (Severe, Uncoded 12/18/23 11:58) THROAT SWELLING Do you need a note to return to daycare/school/sports/work: No HPI HPI Comments History of Present Illness Details 73 y/o female patient who presents to [facility] walk [facility] clinic with c/o suprapubic abdominal cramping, Urinary symptoms Since Thursday. Reports Urinary Frequency and dsyuria. Pt reports that symptoms started right after she started a new medication Multaq for her heart. She believes her symptoms are related to this medication. [facility] Medical History (Updated 10/01/23 @ 12:49 by Kathi Howell MD) Annual physical exam Dupuytren's contracture of right hand Ankle pain, left Venous insufficiency of both lower extremities Diabetic eye exam Osteoarthritis Environmental and seasonal allergies History of mammogram Prediabetes Glaucoma Depression Vitamin D deficiency Surgical History H/O colonoscopy History of surgery History of prior ablation treatment History of laparoscopic cholecystectomy Family History Father Alzheimer's disease Dementia COPD (chronic obstructive pulmonary disease) HTN (hypertension) CVD (cardiovascular disease) Diabetes mellitus Mother Diabetes mellitus Liver cancer Maternal Grandfather No problems noted. Maternal Grandmother No problems noted. Paternal Grandfather No problems noted. Paternal Grandmother No problems noted. Brother No problems noted. Sister Diabetes mellitus Renal failure Sister No problems noted. Sister No problems noted. Sister No problems noted. Sister No problems noted. Son No problems noted. Son No problems noted. Son No problems noted. Daughter No problems noted. 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 General: Yes no CVA tenderness Back/Spine/Pelvis Back: no CVA tenderness Neuro General: patient oriented x3, gait normal and moves all extremities Psych Speech and movement: Normal speech and movement present Assessment & Plan Assessment & Plan (1) Urinary tract infection symptoms: Code(s): R39.9 - Unspecified symptoms and signs involving the genitourinary system Plan: UA negative, Trace Leuc prob contamination. Advised Pt to RTC if symptoms not better. Hydrate with fluids Advised to f/u with Cardio regarding the new medication. Coding Level of Care Code Est Pt Level 3 (73604) Diagnoses Urinary tract infection symptoms R39.9 Time Spent (min) 15
[2023-12-18 11:57] VITALS: BP 130/80; PULSE 68; O2SAT 98; BMI 37.9
== END 2023-12-18 12:48 | disposition home or self-care (01) ==
PROVIDERS: PCP Internal Medicine; Visit Provider Nurse Practitioner Family
DX: Z13.9 Encounter for screening, unspecified (principal); R39.9 Unspecified symptoms and signs involving the genitourinary system

== ENCOUNTER → 2023-12-18 11:43 | Outpatient (BNVA) | payer OTHER, SELFPAY | PROVIDERS: PCP Internal Medicine; Visit Provider Nurse Practitioner Family | DX: R30.0 Dysuria (principal); R35.0 Frequency of micturition | CPT/HCPCS: 81003; 99212 ==

== ENCOUNTER 2023-12-21 08:53 | Outpatient (AMB) | payer OTHER, SELFPAY ==
--- NOTE | 2023-12-21 09:47 | AM.OFFWIN_ITS ---
Intake Vital Signs 12/21/23 09:49 BP 120/82 Blood Pressure Location Rt brachial Position Sitting Pulse 67 Pulse Source Pulse Oximeter Temp 97.7 F Temp Source Oral Pulse Oximetry (%) 98 Oxygen Delivery Method Room Air Intake Visit Reasons: EP ?UTI Patient Tobacco Use Status: Never used Tobacco Allergies amoxicillin [AMOXICILLIN] Allergy (Unknown, Verified 12/18/23 11:58) RASH, allergy egg Allergy (Unknown, Verified 12/18/23 11:58) ITCHY THROAT/RASH Penicillins [PENICILLINS] Allergy (Unknown, Verified 12/18/23 11:58) RASH SHELLFISH Allergy (Severe, Uncoded 12/18/23 11:58) THROAT SWELLING HPI EP ?UTI HPI Details This note is constructed using voice recognition software. While every effort has been made to ensure accuracy, gyroscope repairer errors may have been included. The patient is a 73 year old female who presents to the clinic today with UTI. She notes that symptoms onset was a week ago, she is having burning, urgency, frequency of urination. She is occasionally seen blood from her urine. She notes that she was recently seen for this, and advised that she did not having urinary tract infection. She continues to have symptoms despite. She would like treatment with antibiotics. She denies fever, chills, nausea, vomiting, back pain. [facility] Medical History (Updated 10/01/23 @ 12:49 by Kathi Howell MD) Annual physical exam Dupuytren's contracture of right hand Ankle pain, left Venous insufficiency of both lower extremities Diabetic eye exam Osteoarthritis Environmental and seasonal allergies History of mammogram Prediabetes Glaucoma Depression Vitamin D deficiency Surgical History H/O colonoscopy History of surgery History of prior ablation treatment History of laparoscopic cholecystectomy Family History Father Alzheimer's disease Dementia COPD (chronic obstructive pulmonary disease) HTN (hypertension) CVD (cardiovascular disease) Diabetes mellitus Mother Diabetes mellitus Liver cancer Maternal Grandfather No problems noted. Maternal Grandmother No problems noted. Paternal Grandfather No problems noted. Paternal Grandmother No problems noted. Brother No problems noted. Sister Diabetes mellitus Renal failure Sister No problems noted. Sister No problems noted. Sister No problems noted. Sister No problems noted. Son No problems noted. Son No problems noted. Son No problems noted. Daughter No problems noted. 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 Cognitive needs: No Hearing needs: No Vision needs: No Review of Systems Const All systems reviewed & are unremarkable except as noted in HPI and below Physical Exam Vital Signs: Last Vital Signs Temp 97.7 F 12/21/23 09:49 Pulse 67 12/21/23 09:49 BP 120/82 12/21/23 09:49 Pulse Ox 98 12/21/23 09:49 Oxygen Delivery Method Room Air 12/21/23 09:49 Const General: cooperative, healthy appearing, comfortable, no acute distress and alert Orientation/consciousness: patient oriented x3 Limitations: no limitations Resp Effort & Inspection: normal respiratory effort and able to speak in complete sentences Other: Deferred General: Yes no CVA tenderness Back/Spine/Pelvis Back: no CVA tenderness Skin General skin exam: no rashes or lesions noted, elasticity normal and turgor normal Neuro General: patient oriented x3 Psych Appearance: grossly normal Mental Status: mental status grossly normal Speech and movement: Normal speech and movement present Affect: normal affect Results AMB Urinalysis, Automated UA Leukoctes 15 Pamela/uL Last Edit by Muna Escalona CMA on 12/21/23 09:48 UA Nitrite Negative Last Edit by Muna Escalona CMA on 12/21/23 09:48 UA Urobilinogen 0.2 mg/dL Last Edit by Muna Escalona CMA on 12/21/23 09:48 UA Protein 0 mg/dL Last Edit by Muna Escalona CMA on 12/21/23 09:48 UA pH 6.0 Last Edit by Muna Escalona CMA on 12/21/23 09:48 UA Blood 0 Kalia/uL Last Edit by Muna Escalona CMA on 12/21/23 09:48 UA Specific [place] 1.020 Last Edit by Muna Escalona CMA on 12/21/23 09:48 UA Ketone Negative Last Edit by Muna Escalona CMA on 12/21/23 09:48 UA Bilirubin 0 mg/dL Last Edit by Muna Escalona CMA on 12/21/23 09:48 UA Glucose 0 mg/dL Last Edit by Muna Escalona CMA on 12/21/23 09:48 Results Reviewed Results Reviewed: Laboratory Last Values Urine pH (Auto) 6.0 12/21/23 09:46 Specific [place] (Auto) 1.020 12/21/23 09:46 Urine Protein (Auto) 0 mg/dL 12/21/23 09:46 Glucose (UA)(Auto) 0 mg/dL 12/21/23 09:46 Urine Ketones (Auto) Negative 12/21/23 09:46 Urine Blood (Auto) 0 Kalia/uL 12/21/23 09:46 Urine Nitrite (Auto) Negative 12/21/23 09:46 Urine Bilirubin (Auto) 0 mg/dL 12/21/23 09:46 Urine Urobilinogen (Auto) 0.2 mg/dL 12/21/23 09:46 Leukocyte Esterase (Auto) 15 Pamela/uL 12/21/23 09:46 Assessment & Plan Assessment & Plan (1) Dysuria: Code(s): R30.0 - Dysuria Plan: In office urine positive only for small amounts of leukocytes, however we will treat based on symptoms. Advised follow up with worsening or failure to resolve as she may benefit from pelvic examination with ongoing symptoms. Orders: Orders AMB Urinalysis Automated Today Z13.9 - Encounter for screening, unspecified Medications: New nitrofurantoin monohyd/m-cryst 100 mg must administer with a meal/food 100 mg PO Q12H 10 caps 0RF 5 days Coding Level of Care Code Est Pt Level 3 (46697) Diagnoses Dysuria R30.0
[2023-12-21 09:49] VITALS: BP 120/82; PULSE 67; TEMP 36.5; O2SAT 98
== END 2023-12-21 09:56 | disposition home or self-care (01) ==
PROVIDERS: PCP Internal Medicine; Visit Provider Registered Nurse
DX: R30.0 Dysuria (principal); Z13.9 Encounter for screening, unspecified

== ENCOUNTER → 2023-12-21 08:53 | Outpatient (BNVA) | payer OTHER, SELFPAY | PROVIDERS: PCP Internal Medicine; Visit Provider Registered Nurse | DX: R30.0 Dysuria (principal) | CPT/HCPCS: 81003; 99212 ==

== ENCOUNTER → 2024-03-21 13:33 | Outpatient (AMB) | payer OTHER, SELFPAY ==
[2024-03-21 13:55] VITALS: BP 120/72; PULSE 62; BMI 38.5
--- NOTE | 2024-03-21 13:55 | MHC.OFFVIS ---
Vital Signs 03/21/24 13:55 Height 5 ft 4 in Weight 224 lb 6.889 oz BMI 38.5 BP 120/72 Blood Pressure Location Lt brachial Position Sitting Pulse 62 Pulse Source Monitor Intake Visit Reasons: 3 mth f/up Intake Note: 3 mth f/up Hydrotechnical Specialist Required: No Accompanied by: Daughter Allergies amoxicillin [AMOXICILLIN] Allergy (Unknown, Verified 12/18/23 11:58) RASH, allergy egg Allergy (Unknown, Verified 12/18/23 11:58) ITCHY THROAT/RASH Penicillins [PENICILLINS] Allergy (Unknown, Verified 12/18/23 11:58) RASH dronedarone Adverse Reaction (Intermediate, Verified 03/21/24 14:33) Abdominal Pain SHELLFISH Allergy (Severe, Uncoded 12/18/23 11:58) THROAT SWELLING Medication List - Last Reconciled 03/21/24 by Christian Marcos MD albuterol sulfate 90 mcg/actuation 2 puffs inhalation Q8H apixaban 5 mg PO BID blood sugar diagnostic (OneTouch Ultra Test strips) 1 qd blood-glucose meter (HittahemTouch Ultra2 Meter) As directed cholecalciferol (vitamin D3) 50 mcg (2 x 25 mcg (1,000 unit)) PO DAILY 90 days latanoprost (PF) 0.005% 1 drp ophthalmic (eye) DAILY meclizine 12.5 mg PO BID PRN nitrofurantoin monohyd/m-cryst 100 mg 100 mg PO Q12H 5 days olmesartan 20 mg PO DAILY rosuvastatin 10 mg PO DAILY 90 days sertraline 25 mg PO DAILY timolol maleate 0.5% 1 drp ophthalmic-Right QAM HPI Comments Details: Pleasant 73-year-old female who is here for f/u. She was in the emergency department recently when she presented with palpitations and chest discomfort. She was noticed to be in AFib with RVR. She was given IV medications and broke out of atrial fibrillation with improvement in all her symptoms. She was subsequently discharged from the emergency department with apixaban and metoprolol. Since then she has been doing much better with some palpitations off and on. She is wearing a 3 day Holter monitor currently. She has been experiencing some shortness of breath and central chest heaviness which happens when she is doing activities. She is saying these symptoms started after the episode of atrial fibrillation. Physically she is not very active but does activities at home. She is overweight but has never had a sleep study. She is unsure whether she snores at night because she lives by herself. She is denying any significant daytime sleepiness or headaches. 11/24/22: She returns for follow-up. Holter monitor done for 3 days which did not show atrial fibrillation. She is getting some palpitations lasting for few seconds but no prolonged episodes. She is complaining of vertigo. She also has exertional dyspnea and some chest discomfort. She was referred for stress Mibi where she was able to exercise for 5 minute 31 seconds and achieved 86% of maximum predicted heart rate with moderate shortness of breath and chest heaviness. No ECG changes were noticed and nuclear perfusion imaging was read as normal. No bleeding concerns currently with Eliquis. 03/09/22: She returns for follow-up. She was referred for coronary CTA on last visit due to equivocal exercise stress test. Coronary CTA showed no evidence of hemodynamically significant coronary artery disease. 25% proximal RCA stenosis was noted. Small calcification distal portion of LAD and left circumflex artery was normal. Mildly enlarged main pulmonary artery and borderline a large mid ascending aorta 3.9 cm. She is denying chest discomfort or shortness of breath. Palpitation lasting for few seconds just like she reported in October 2022. No bleeding concerns. 08/31/23: She returns for follow-up. She said over the last 2 months she had 2 episodes of atrial fibrillation approximately 1 month apart lasting for few hours. These were self-limiting. She was in [place] and it was fairly hot there. She is denying any chest discomfort. She has some dyspnea with exertion which has been ongoing for long time. 12/09/2023: She is here for follow-up. She said she had an episode lasting for 6 hours of palpitations approximately 2 weeks ago. She also has been getting off and on palpitations here and there. She has some itchy feeling in her throat and has been coughing. It appears she has some sort of allergic issue going on. Not on lisinopril. 03/21/2024: On follow-up today she is doing well. She was started on Multaq on last visit but it appears she had some intolerance is due to Multaq. She started having abdominal pain and diarrhea after starting the medicine. She subsequently stopped the medication and abdominal discomfort went away. She said she started taking the half tablet of Toprol-XL and has been doing well since then. No further episodes of atrial fibrillation. [facility] Medical History (Updated 10/01/23 @ 12:49 by Kathi Howell MD) Annual physical exam Dupuytren's contracture of right hand Ankle pain, left Venous insufficiency of both lower extremities Diabetic eye exam Osteoarthritis Environmental and seasonal allergies History of mammogram Prediabetes Glaucoma Depression Vitamin D deficiency Surgical History H/O colonoscopy History of surgery History of prior ablation treatment History of laparoscopic cholecystectomy Family History Father Alzheimer's disease Dementia COPD (chronic obstructive pulmonary disease) HTN (hypertension) CVD (cardiovascular disease) Diabetes mellitus Mother Diabetes mellitus Liver cancer Maternal Grandfather No problems noted. Maternal Grandmother No problems noted. Paternal Grandfather No problems noted. Paternal Grandmother No problems noted. Brother No problems noted. Sister Diabetes mellitus Renal failure Sister No problems noted. Sister No problems noted. Sister No problems noted. Sister No problems noted. Son No problems noted. Son No problems noted. Son No problems noted. Daughter No problems noted. 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 Cognitive needs: No Hearing needs: No Vision needs: No Review of Systems Const Denies chills, Denies fatigue, Denies fever(s), Denies frequent falls, Denies weakness, Denies weight gain and Denies weight loss ENT Denies dizziness Card Denies chest pain, Denies leg edema, Denies lightheadedness, Denies palpitations, Denies dyspnea and Denies dyspnea on exertion Resp Denies cough, Denies dyspnea and Denies dyspnea on exertion GI Denies hematochezia Musc Denies abnormal gait, Denies muscle weakness, Denies numbness, Denies radiating pain into limb and Denies tingling Neuro Denies abnormal gait, Denies dizziness, Denies frequent falls, Denies numbness, Denies tingling and Denies weakness Endo Denies fatigue and Denies palpitations Physical Exam Vital Signs: Last Vital Signs Pulse 62 03/21/24 13:55 BP 120/72 03/21/24 13:55 BMI result Body Mass Index 38.5 GENERAL APPEARANCE: in no acute distress, pleasant. NECK: no carotid bruit, no jugular venous distention. SKIN: no suspicious lesions, warm and dry. HEART: no murmurs, regular rate and rhythm. LUNGS: clear to auscultation bilaterally. ABDOMEN: soft, nontender. EXTREMITIES: no edema. PERIPHERAL PULSES: equal. NEUROLOGIC: No gross deficits, AAO X 3 Office Procedures EKG Details: Sinus rhythm 62 beats per minute, normal axis, normal EKG, QTC 412 milliseconds. [id number], Complete Assessment & Plan Assessment & Plan (1) PAF (paroxysmal atrial fibrillation): Comment: f/u Dr. Marcos , CT coronary angiogram 02/21 25% RCA stenosis, proximal LAD small calcification, started on Crestor Code(s): I48.0 - Paroxysmal atrial fibrillation Category: Medical Plan Pleasant 73 year female who is here for follow-up. She has background of paroxysmal atrial fibrillation. Last visit she was concerned about prolonged episode of atrial fibrillation and we started her on Multaq but she could not tolerate the Multaq. She is currently off the medication. She is taking metoprolol only and over the last 3-4 months she did not have any further episodes. We discussed that if she has recurrent episodes then we may have to consider starting her on some alternative medication versus ablation. I have explained the ablation procedure to her and the pros and cons. Currently because she has been stable we have decided to monitor her for now. If she had recurrent episode then we will rediscuss about referral for ablation versus starting her on flecainide or amiodarone. Thank you for allowing me to participate in the care of your patient. Please feel free to contact me if you have any questions. Medications: New metoprolol succinate ER 12.5 mg (1/2 x 25 mg) PO DAILY 1 tab 0RF Coding Level of Care Code Est Pt Level 4 (66402) Diagnoses PAF (paroxysmal atrial fibrillation) I48.0 CPT Codes EKG - CPT: 99797-[id number], Complete ([id number])
== END ==
PROVIDERS: PCP Internal Medicine; Visit Provider Internal Medicine Cardiovascular Disease
DX: I48.0 Paroxysmal atrial fibrillation (principal)
CPT/HCPCS: 93010; 99214

== ENCOUNTER → 2024-03-21 13:33 | Outpatient (BNVA) | payer OTHER, SELFPAY | PROVIDERS: PCP Internal Medicine; Visit Provider Internal Medicine Cardiovascular Disease | DX: I48.0 Paroxysmal atrial fibrillation (principal) | CPT/HCPCS: 93005; 99212 ==

== ENCOUNTER 2024-04-06 10:08 | Emergency (ER) | payer OTHER, SELFPAY ==
--- NOTE | ~2024-04-06 | XR_ITS ---
EXAMINATION: XR CHEST CLINICAL INFORMATION: sob COMPARISON: June 29, 2022 TECHNIQUE: Frontal view of the chest was obtained. FINDINGS: Prominence of the interstitial markings. No consolidation pleural effusion or pneumothorax. Cardiomediastinal silhouette demonstrates calcified plaque aortic arch. Mild multilevel thoracic spondylosis. Degenerative changes in the acromioclavicular joints. XR/XR chest 1V IMPRESSION: Mild interstitial lung edema in the correct clinical settings. Electronically signed by: Oscar Pierre MD 04/06/2024 11:34 AM ALPESH DO
--- NOTE | 2024-04-06 10:15 | ECG_ITS ---
Test Reason : HEART PALPITATIONS Blood Pressure : */* mmHG Vent. Rate : 87 BPM Atrial Rate : 87 BPM P-R Int : 166 ms QRS Dur : 78 ms QT Int : 354 ms P-R-T Axes : 71 17 36 degrees QTcB Int : 425 ms Normal sinus rhythm Normal ECG When compared with ECG of 29-Jun-2022 09:11, No significant change was found Referred By: Generic ED Physician Electronically Signed By: Christian Marcos
[2024-04-06 10:52] VITALS: BP 124/67; PULSE 85; RESP 20; TEMP 36.6; O2SAT 97; BMI 37.5
[2024-04-06 12:23] LABS: MANUAL DIFF FLAG NO
[2024-04-06 12:24] LABS: Appearance Urine Clear; Color Urine Yellow; Glucose Urine UA Negative (Negative); Leukocyte Esterase Urine Small (1+) (Negative); Nitrite Urine Negative (Negative); UMIC TRIGGER UACC YES; Urine Blood Negative (Negative); Urine Ketones Trace mg/dL (Negative); Urine Protein Trace mg/dL (Neg-Trace)
[2024-04-06 12:26] LABS: Basophils Percent Auto 0.4 % (0-2); Eosinophils Percent Auto 0.3 % (0-4); Hematocrit 34.9 % (37.0-47.0); Hemoglobin 11.5 g/dl (12.0-16.0); Imm Gran Abs Auto 0.02 X10*3/uL (0.00-0.03); Imm Gran Pct Auto 0.3 % (0.0-0.4); Lymphocytes Absolute Auto 1.5 X10*3/uL (1.2-4.9); Lymphocytes Percent Auto 20.5 % (20-40); Mean Corpuscular Hemoglobin 29.4 pg (27.0-33.0); Mean Corpuscular Volume 89.3 fL (80.0-98.0); Mean Platelet Volume 9.5 fL (9.4-12.3); Monocytes Absolute Auto 0.6 X10*3/uL (0.1-1.2); Monocytes Percent Auto 7.8 % (2-11); Neutrophils Absolute Auto 5.2 x10*3/uL (2.0-8.3); Neutrophils Percent Auto 70.7 % (45-73); Platelet Count 317 X10*3/uL (160-400); Red Blood Count 3.91 X10*6/uL (4.20-5.50); White Blood Count 7.4 X10*3/uL (4.8-10.8)
[2024-04-06 12:35] LABS: Bacteria Urine Trace (None Seen); Hyaline Casts Urine 0-2 /LPF (0-2); RBC Urine 0-2 /HPF (0-2); Squamous Epithelial Cell Urine 0-2 /HPF (0-2); UACC Culture Trigger YES; WBC Urine 0-5 /HPF (0-5)
[2024-04-06 12:46] LABS: Alanine Aminotransferase 21 U/L (0-31); Albumin Level 4.4 g/dL (3.5-5.0); Alkaline Phosphatase 63 U/L (39-117); Anion Gap 12 (12-20); Aspartate Amino Transferase 26 U/L (5-31); Bilirubin Direct 0.4 mg/dL (0.0-0.5); Blood Urea Nitrogen 27 mg/dL (9-16); Calcium 9.7 mg/dL (8.4-10.2); Carbon Dioxide 22 mmol/L (22-29); Chloride 107 mmol/L (96-108); Creatinine Clr Calc Pharmacy 56.7; Estimated Glomerular Filt Rate 55; Glucose Random 169 mg/dL (60-115); Lipase 56 U/L (8-78); Potassium 4.8 mmol/L (3.3-5.1); Sodium 136 mmol/L (135-145); Total Protein 8.7 g/dL (6.5-8.0)
[2024-04-06 12:55] LABS: Troponin-I High Sensitivity 22.5 ng/L (<3.5-17.0)
[2024-04-06 15:25] LABS: Troponin-I High Sensitivity 20.8 ng/L (<3.5-17.0)
[2024-04-06 16:24] VITALS: BP 141/75; PULSE 91; RESP 20; TEMP 36.6; O2SAT 99
[2024-04-06 18:25] VITALS: BP 143/64; PULSE 85; RESP 16; TEMP 36.4; O2SAT 98
[2024-04-06 19:04] LABS: B Type Natriuretic Peptide 77 pg/mL (<100)
--- NOTE | 2024-04-06 19:11 | ED_ITS ---
HPI - Arrhythmia/Palpitations General Chief Complaint: General Medical Stated Complaint: heart palpitations, vomiting, sob Time Seen by Provider: 04/06/24 18:20 Source: patient and old records reviewed Mode of arrival: ambulatory Limitations: no limitations History of Present Illness ED Provider: LETICIA HPI narrative: 73 yo female with PMH of anemia, DM2, afib on eliquis, HTN, CKD, vertigo, ethmoidal sinusitis, here with c/o not feeling well with chills body pain including neck since Thursday. NO known sick contats, felt flush and redness/swelling yesterday near maxillary sinus. She felt short of breath as well and sweats/chills. her blood sugar was 240 when she wasn't eating, overall not feeling well with malaise, no recent travel. She states she feels fine now other than mild neck pain. No chest pain. She has no breathing problems right now. MD complaint: rapid heart beat and palpitations Onset (ago): day(s) (2) Duration: intermittent Severity: mild Context: occurred during rest and occurred during exertion Arrhythmia history: atrial fibrillation Associated symptoms: shortness of breath, nausea, muscle cramps and other (chills) Related Data Home Medications ?Medication ?Instructions ?Recorded ?Confirmed latanoprost (PF) 0.005 % eye drops 1 drp ophthalmic (eye) DAILY 01/18/20 03/21/24 timolol maleate 0.5 % eye drops 1 drp ophthalmic-Right QAM 01/18/20 03/21/24 Previous Rx's ?Medication ?Instructions ?Recorded blood-glucose meter (WildBlueTouch #1 ea 11/29/21 Ultra2 Meter) albuterol sulfate 90 mcg/actuation 2 puff inhalation Q8H #8.5 grams 11/12/22 aerosol inhaler meclizine 12.5 mg tablet 12.5 mg PO BID PRN dizziness #30 11/24/22 tabs blood sugar diagnostic (WildBlueTouch #100 ea 06/16/23 Ultra Test strips) apixaban 5 mg tablet 5 mg PO BID #180 tabs 08/28/23 rosuvastatin 10 mg tablet 10 mg PO DAILY 90 days #90 tabs 11/11/23 olmesartan 20 mg tablet 20 mg PO DAILY #90 tabs 11/19/23 nitrofurantoin 100 mg PO Q12H 5 days #10 caps 12/21/23 monohydrate/macrocrystals 100 mg capsule cholecalciferol (vitamin D3) 25 50 mcg (2 x 25 mcg (1,000 unit)) 02/15/24 mcg (1,000 unit) capsule PO DAILY 90 days #180 caps sertraline 25 mg tablet 25 mg PO DAILY #90 tabs 02/23/24 metoprolol succinate 25 mg 12.5 mg (1/2 x 25 mg) PO DAILY #1 03/21/24 tablet,extended release 24 hr tab Allergies Allergy/AdvReac Type Severity Reaction Status Date / Time amoxicillin [AMOXICILLIN] Allergy Unknown RASH, Verified 04/06/24 10:55 allergy egg Allergy Unknown ITCHY Verified 04/06/24 10:55 THROAT/RASH Penicillins [PENICILLINS] Allergy Unknown RASH Verified 04/06/24 10:55 dronedarone AdvReac Intermediate Abdominal Verified 04/06/24 10:55 Pain SHELLFISH Allergy Severe THROAT Uncoded 12/18/23 11:58 SWELLING Review of Systems 2 Review of Systems: Constitutional : No Fever, pos Chills, pos Fatigue ENT/Mouth : No sore throat, No Rhinorrhea Eyes: No Eye Pain, No Swelling, No Redness Cardiovascular : No Chest Pain, pos SOB, No Dyspnea on Exertion Respiratory : No Cough, No Sputum Gastrointestinal : No Nausea, No Vomiting, No Diarrhea, No abdominal Pain Genitourinary : No Dysuria, No Urinary Frequency, No Hematuria, Musculoskeletal : pos joint pain, pos Myalgias, No Joint Swelling Skin : No Skin Lesions, No rash Neuro : No Weakness, No Numbness, No Dizziness, no Headache All other systems reviewed and are negative [facility] Past Medical History Attestation statement: The following information was validated with the patient. Source: old records reviewed Medical History Annual physical exam Dupuytren's contracture of right hand Ankle pain, left Venous insufficiency of both lower extremities Diabetic eye exam Osteoarthritis Environmental and seasonal allergies History of mammogram Prediabetes Glaucoma Depression Vitamin D deficiency Surgical History H/O colonoscopy History of surgery History of prior ablation treatment History of laparoscopic cholecystectomy Family History Family History Father Alzheimer's disease Dementia COPD (chronic obstructive pulmonary disease) HTN (hypertension) CVD (cardiovascular disease) Diabetes mellitus Mother Diabetes mellitus Liver cancer Maternal Grandfather No problems noted. Maternal Grandmother No problems noted. Paternal Grandfather No problems noted. Paternal Grandmother No problems noted. Brother No problems noted. Sister Diabetes mellitus Renal failure Sister No problems noted. Sister No problems noted. Sister No problems noted. Sister No problems noted. Son No problems noted. Son No problems noted. Son No problems noted. Daughter No problems noted. 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 Oriented X3. No acute distress. Eyes: Pupils equal, round and reactive to light. ENT: Pharynx normal. Neck: Normal inspection. Neck supple. CVS: Normal heart rate and rhythm. Pulses normal. Respiratory: No respiratory distress. Breath sounds normal. Abdomen: Soft and nontender. Skin: Skin warm and dry. Normal skin color. Normal skin turgor. Extremities: No lower extremity edema. No calf ttp Neuro: Oriented X 3. No motor deficit. No sensory deficit. CN2-12 intact Medical Decision Making Medical Decision Making MDM Narrative: 73 yo female with PMH of anemia, DM2, afib on eliquis, HTN, CKD, vertigo, ethmoidal sinusitis, here with c/o vague symptoms almost viral like but no chest pain at this time given palpitations will obtain basic labs, trop x 2, CXR, EKG, BNP, viral panel and urine. She is neuro intact and has no meningeal signs - no WBC count and afebrile here doubt meningitis or ICH. Differential Diagnosis Differential Diagnoses: The differential diagnosis associated with the presentation includes viral syndrome, afib Admission/Observation Consideration of admission/observation: Escalation of care including admission/observation considered she has unremarkable work up 3 trop non ischemic no EKG changes, BNP negative, neg viral panel VS stable Consult Healthcare Provider Management of the patient was discussed with: Cooker Chip (did discuss trops with cards) Lab Data MDM Lab Attestation statement: I reviewed the patient's lab results. 04/06/24 12:17 04/06/24 12:17 Labs: Lab Results 04/06/24 04/06/24 04/06/24 Range/Units 12:17 14:51 18:31 WBC 7.4 (4.8-10.8) X10*3/uL RBC 3.91 L (4.20-5.50) X10*6/uL Hgb 11.5 L (12.0-16.0) g/dl Hct 34.9 L (37.0-47.0) % MCV 89.3 (80.0-98.0) fL MCH 29.4 (27.0-33.0) pg MCHC 33.0 (31.0-35.0) g/dl RDW 13.0 (11.0-16.0) % Plt Count 317 (160-400) X10*3/uL MPV 9.5 (9.4-12.3) fL Immature Gran % (Auto) 0.3 (0.0-0.4) % Neut % (Auto) 70.7 (45-73) % Lymph % (Auto) 20.5 (20-40) % Ocean % (Auto) 7.8 (2-11) % Eos % (Auto) 0.3 (0-4) % Baso % (Auto) 0.4 (0-2) % Lymph # (Auto) 1.5 (1.2-4.9) X10*3/uL Ocean # (Auto) 0.6 (0.1-1.2) X10*3/uL Eos # (Auto) 0.0 (0.0-0.4) X10*3/uL Baso # (Auto) 0.0 (0.0-0.2) X10*3/uL Abs Immat Gran (auto) 0.02 (0.00-0.03) X10*3/uL Absolute Neuts (auto) 5.2 (2.0-8.3) x10*3/uL Absolute Nucleated RBC 0.000 (0.0-0.012) X10*3/uL Nucleated RBC % (auto) 0.0 (0.0-0.2) /100WBC Sodium 136 (135-145) mmol/L Potassium 4.8 (3.3-5.1) mmol/L Chloride 107 (96-108) mmol/L Carbon Dioxide 22 (22-29) mmol/L Anion Gap 12 (12-20) BUN 27 H (9-16) mg/dL Creatinine 0.98 (0.5-1.4) mg/dL Estim Creat Clear Calc 56.7 Estimated GFR 55 Random Glucose 169 H (60-115) mg/dL Calcium 9.7 (8.4-10.2) mg/dL Total Bilirubin 1.0 (0.0-1.0) mg/dL Direct Bilirubin 0.4 (0.0-0.5) mg/dL AST 26 (5-31) U/L ALT 21 (0-31) U/L Alkaline Phosphatase 63 (39-117) U/L Troponin I High Sens 22.5 H D 20.8 H (<3.5-17.0) ng/L B-Natriuretic Peptide 77 (<100) pg/mL Total Protein 8.7 H (6.5-8.0) g/dL Albumin 4.4 (3.5-5.0) g/dL Lipase 56 (8-78) U/L Urine Color Yellow Urine Appearance Clear Urine pH 5.0 (5.0-9.0) Ur Specific [place] 1.020 (1.005-1.025) Urine Protein Trace (Neg-Trace) mg/dL Urine Glucose (UA) Negative (Negative) mg/dL Urine Ketones Trace (Negative) mg/dL Urine Blood Negative (Negative) Urine Nitrite Negative (Negative) Ur Leukocyte Esterase Small (1+) H (Negative) Urine RBC 0-2 (0-2) /HPF Urine WBC 0-5 (0-5) /HPF Ur Squamous Epith Cells 0-2 (0-2) /HPF Urine Bacteria Trace (None Seen) Hyaline Casts 0-2 (0-2) /LPF Influenza Type A (PCR) (Negative) Influenza Type B (PCR) (Negative) RSV RNA Qual (PCR) (Negative) SARS-CoV-2 RNA (RT-PCR) (Negative) 04/06/24 04/06/24 Range/Units 18:36 19:24 WBC (4.8-10.8) X10*3/uL RBC (4.20-5.50) X10*6/uL Hgb (12.0-16.0) g/dl Hct (37.0-47.0) % MCV (80.0-98.0) fL MCH (27.0-33.0) pg MCHC (31.0-35.0) g/dl RDW (11.0-16.0) % Plt Count (160-400) X10*3/uL MPV (9.4-12.3) fL Immature Gran % (Auto) (0.0-0.4) % Neut % (Auto) (45-73) % Lymph % (Auto) (20-40) % Ocean % (Auto) (2-11) % Eos % (Auto) (0-4) % Baso % (Auto) (0-2) % Lymph # (Auto) (1.2-4.9) X10*3/uL Ocean # (Auto) (0.1-1.2) X10*3/uL Eos # (Auto) (0.0-0.4) X10*3/uL Baso # (Auto) (0.0-0.2) X10*3/uL Abs Immat Gran (auto) (0.00-0.03) X10*3/uL Absolute Neuts (auto) (2.0-8.3) x10*3/uL Absolute Nucleated RBC (0.0-0.012) X10*3/uL Nucleated RBC % (auto) (0.0-0.2) /100WBC Sodium (135-145) mmol/L Potassium (3.3-5.1) mmol/L Chloride (96-108) mmol/L Carbon Dioxide (22-29) mmol/L Anion Gap (12-20) BUN (9-16) mg/dL Creatinine (0.5-1.4) mg/dL Estim Creat Clear Calc Estimated GFR Random Glucose (60-115) mg/dL Calcium (8.4-10.2) mg/dL Total Bilirubin (0.0-1.0) mg/dL Direct Bilirubin (0.0-0.5) mg/dL AST (5-31) U/L ALT (0-31) U/L Alkaline Phosphatase (39-117) U/L Troponin I High Sens 12.2 (<3.5-17.0) ng/L B-Natriuretic Peptide (<100) pg/mL Total Protein (6.5-8.0) g/dL Albumin (3.5-5.0) g/dL Lipase (8-78) U/L Urine Color Urine Appearance Urine pH (5.0-9.0) Ur Specific [place] (1.005-1.025) Urine Protein (Neg-Trace) mg/dL Urine Glucose (UA) (Negative) mg/dL Urine Ketones (Negative) mg/dL Urine Blood (Negative) Urine Nitrite (Negative) Ur Leukocyte Esterase (Negative) Urine RBC (0-2) /HPF Urine WBC (0-5) /HPF Ur Squamous Epith Cells (0-2) /HPF Urine Bacteria (None Seen) Hyaline Casts (0-2) /LPF Influenza Type A (PCR) NEGATIVE (Negative) Influenza Type B (PCR) NEGATIVE (Negative) RSV RNA Qual (PCR) NEGATIVE (Negative) SARS-CoV-2 RNA (RT-PCR) NEGATIVE (Negative) Independent Interpretation I performed an independent interpretation of an: EKG and Plain X-Ray (no pneumonia) Interpretation: Rate: 87 Rhythm: NSR [place]: normal Normal P waves. Normal LOKESH. Normal QRS complex. ST T wave : no TAMANNA, flat t waves III qTC: 425 prior studies: no acute ischemia The study has been interpreted contemporaneously by me. . Radiology Impression Discussion of test interpretation with radiology: I have reviewed the radiologist's reading. Independent Historian Clinical information obtained from an independent historian. 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 Prescriptions: No Action albuterol sulfate 90 mcg/actuation HFA aerosol inhaler 2 puff inhalation Q8H Qty: 8.5 3RF apixaban 5 mg tablet 5 mg PO BID Qty: 180 3RF rosuvastatin 10 mg tablet 10 mg PO DAILY 90 Days Qty: 90 3RF olmesartan 20 mg tablet 20 mg PO DAILY Qty: 90 3RF cholecalciferol (vitamin D3) 25 mcg (1,000 unit) capsule 50 mcg PO DAILY 90 Days Qty: 180 3RF sertraline 25 mg tablet 25 mg PO DAILY Qty: 90 3RF timolol maleate 0.5 % drops 1 drp ophthalmic-Right QAM latanoprost (PF) 0.005 % drops 1 drp ophthalmic (eye) DAILY (DME) OneTouch Ultra Test Strip See Rx Instructions .Route Qty: 100 3RF Rx Instructions: 1 qd (DME) blood-glucose meter [OneTouch Ultra2 Meter] Misc See Rx Instructions .Route Qty: 1 0RF Rx Instructions: As directed meclizine 12.5 mg tablet 12.5 mg PO BID PRN (Reason: dizziness) Qty: 30 0RF metoprolol succinate 25 mg tablet extended release 24 hr 12.5 mg PO DAILY Qty: 1 0RF nitrofurantoin monohyd/m-cryst 100 mg capsule 100 mg PO Q12H 5 Days Qty: 10 0RF Rx Instructions: must administer with a meal/food Print Language: American
[2024-04-06 19:26] LABS: Influenza A PCR NEGATIVE (Negative); Influenza B PCR NEGATIVE (Negative); Resp Syncy Virus RNA Qual PCR NEGATIVE (Negative); SARS COV2 PCR INHOUSE NEGATIVE (Negative)
[2024-04-06 19:44] VITALS: BP 133/57; PULSE 89; RESP 20; TEMP 36.6; O2SAT 99
[2024-04-06 19:50] LABS: Troponin-I High Sensitivity 12.2 ng/L (<3.5-17.0)
[2024-04-06] MEDS: Acetaminophen 325 MG TABLET 650 MG PO (20:45)
[2024-04-06 20:46] VITALS: BP 133/57; PULSE 89; RESP 20; TEMP 37.4; O2SAT 98
== END 2024-04-06 20:50 | disposition home or self-care (01) ==
PROVIDERS: Physician Assistant Medical; Emergency Provider Emergency Medicine; PCP Internal Medicine
DX: R00.2 Palpitations (principal); B34.9 Viral infection, unspecified; R06.02 Shortness of breath; M54.2 Cervicalgia; R68.83 Chills (without fever); E11.22 Type 2 diabetes mellitus with diabetic chronic kidney disease; I12.9 Hypertensive chronic kidney disease with stage 1 through stage 4 chronic kidney disease, or unspecified chronic kidney disease; N18.9 Chronic kidney disease, unspecified; Z03.818 Encounter for observation for suspected exposure to other biological agents ruled out
CPT/HCPCS: 0241U; 36415; 71045; 80048; 80076; 81001; 83690; 83880; 84484; 85025; 87086; 93005; 99283; 99284

== ENCOUNTER → 2024-04-06 10:15 | Outpatient (BNV) | payer OTHER, SELFPAY | PROVIDERS: PCP Internal Medicine; Visit Provider Internal Medicine Cardiovascular Disease | DX: R00.2 Palpitations (principal) | CPT/HCPCS: 93010 ==

== ENCOUNTER → 2024-04-06 10:57 | Outpatient (BNV) | payer OTHER, SELFPAY | PROVIDERS: PCP Internal Medicine; Visit Provider Radiology Diagnostic Radiology | DX: J84.9 Interstitial pulmonary disease, unspecified (principal) | CPT/HCPCS: 71045 ==

== ENCOUNTER 2024-04-11 09:50 | Outpatient (AMB) | payer OTHER, SELFPAY ==
--- NOTE | 2024-04-11 10:03 | MHC.PC.OV ---
Vital Signs 04/11/24 10:04 Height 5 ft 4 in Weight 220 lb BMI 37.8 BP 126/70 Blood Pressure Location Lt brachial Position Sitting Respiration 20 Pulse 80 Pulse Source Pulse Oximeter Temp 98.2 F Temp Source Oral Pulse Oximetry (%) 97 Oxygen Delivery Method Room Air Intake Visit Reasons: 6 month f/u Intake Note: Pt is here today for 6 months follow up visit. Pt states that she went to [facility] ER last week. Allergies amoxicillin [AMOXICILLIN] Allergy (Unknown, Verified 04/11/24 10:04) RASH, allergy egg Allergy (Unknown, Verified 04/11/24 10:04) ITCHY THROAT/RASH Penicillins [PENICILLINS] Allergy (Unknown, Verified 04/11/24 10:04) RASH dronedarone Adverse Reaction (Intermediate, Verified 04/11/24 10:04) Abdominal Pain SHELLFISH Allergy (Severe, Uncoded 04/11/24 10:04) THROAT SWELLING Medication List - Last Reconciled 04/11/24 by Kathi Howell MD albuterol sulfate 90 mcg/actuation 2 puffs inhalation Q8H apixaban 5 mg PO BID blood sugar diagnostic (OneTouch Ultra Test strips) 1 qd blood-glucose meter (OneTouch Ultra2 Meter) As directed cholecalciferol (vitamin D3) 50 mcg (2 x 25 mcg (1,000 unit)) PO DAILY 90 days latanoprost (PF) 0.005% 1 drp ophthalmic (eye) DAILY metoprolol succinate ER 12.5 mg (1/2 x 25 mg) PO DAILY olmesartan 20 mg PO DAILY rosuvastatin 10 mg PO DAILY 90 days sertraline 25 mg PO DAILY timolol maleate 0.5% 1 drp ophthalmic-Right QAM Tobacco use date assessed: 04/11/24 Fall risk assessment: No Falls in past year Last assessed Fall Risk: 04/11/24 Dental Screening Dental Screen Date: 04/11/24 Did you have a dental visit in the last 12 months?: Yes Did you have a dental problem in the last 6 months where you did not have access to dental care?: No Was dental information given to patient?: Patient has dentist HPI 6 month f/u HPI Details Pt presents for f/u HTN, hyperlipid,diet controlled DM. [facility] Medical History (Updated 04/11/24 @ 12:25 by Kathi Howell MD) Annual physical exam Dupuytren's contracture of right hand Ankle pain, left Venous insufficiency of both lower extremities Diabetic eye exam Osteoarthritis Environmental and seasonal allergies History of mammogram Glaucoma Depression Vitamin D deficiency Surgical History H/O colonoscopy History of surgery History of prior ablation treatment History of laparoscopic cholecystectomy Family History Father Alzheimer's disease Dementia COPD (chronic obstructive pulmonary disease) HTN (hypertension) CVD (cardiovascular disease) Diabetes mellitus Mother Diabetes mellitus Liver cancer Maternal Grandfather No problems noted. Maternal Grandmother No problems noted. Paternal Grandfather No problems noted. Paternal Grandmother No problems noted. Brother No problems noted. Sister Diabetes mellitus Renal failure Sister No problems noted. Sister No problems noted. Sister No problems noted. Sister No problems noted. Son No problems noted. Son No problems noted. Son No problems noted. Daughter No problems noted. 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 1. Little interest or pleasure in doing things: not at all 2. Feeling down, depressed, or hopeless: not at all 3. Trouble falling or staying asleep, or sleeping too much: not at all 4. Feeling tired or having little energy: several days 5. Poor appetite or overeating: not at all 6. Feeling bad about yourself - or that you are a failure or have let yourself or your family down: not at all 7. Trouble concentrating on things, such as reading the newspaper or watching television: not at all 8. Moving or speaking so slowly that other people could have noticed. Or the opposite - being so fidgety or restless that you have been moving around a lot more than usual: not at all 9. Thoughts that you would be better off or of hurting yourself in some way: not at all Total score: 1 Depression Screening Interpretation: Negative Depression Screening Done: Yes 94825 - PHQ-9 Billing: Yes Source: Developed by Drs. Moose Alberto, Carmela Delgado, Christo Álvarez and colleagues, with an educational jefe from [employer]. Thrive Questionnaire Date Thrive assessed: 04/11/24 I am a: Patient What is your living situation today?: I have a steady place to live Within the past 12 months, did the food you bought not last and you didn't have the money to get more?: Never true Within the past 12 months, did you worry whether your food would run out before you got money to buy more?: Never true Do you have trouble paying for medicines?: No Do you have trouble getting transportation to medical appointments?: No Do you have trouble paying your heating and electricity bill?: No Do you have trouble taking care of your child, family member or friend?: No Do you have trouble with day-to-day activities such as bathing, preparing meals, shopping, managing finances, etc.?: No Are you currently unemployed and looking for a job?: No Are you interested in more education?: No Currently or been in a relationship where the following occur: No concerns reported THRIVE Score: 0 AUDIT C Alcohol Use Questionnaire (AUDIT-C) 1. How often do you have a drink containing alcohol?: Never 3. How often do you have six or more drinks on one occasion?: Never Total Score: 0 MAGDALENA-7 AMB Questionnaire MAGDALENA-7 Date MAGDALENA - 7 assessed: 04/11/24 Feeling nervous, anxious, or on edge: 0 = Not at all Not being able to stop or control worryin = Not at all Worrying too much about different things: 0 = Not at all Trouble relaxin = Not at all Being so restless that it is hard to sit still: 0 = Not at all Becoming easily annoyed or irritable: 0 = Not at all Feeling afraid as if something awful might happen: 0 = Not at all Total MAGDALENA-7 score (0-4 normal; 5-9 mild; 10-14 moderate; 15-21 severe): 0 Source: Developed by Carmela De Leon Danny, Christo Álvarez and colleagues, with an educational jefe from [employer]. MAGDALENA-7 Assessment Billing MAGDALENA-7 Assessment Tool: MAGDALENA-7 Assessment 88110 Review of Systems Const All systems reviewed & are unremarkable except as noted in HPI and below Reports no additional complaints Eyes Reports no additional complaints ENT Reports no additional complaints Card Reports no additional complaints Resp Reports no additional complaints GI Reports no additional complaints Reports no additional complaints Physical exam (Primary Care) Vital Signs: Last Vital Signs Temp 98.2 F 04/11/24 10:04 Pulse 80 04/11/24 10:04 Resp 20 04/11/24 10:04 BP 126/70 04/11/24 10:04 Pulse Ox 97 04/11/24 10:04 Oxygen Delivery Method Room Air 04/11/24 10:04 BMI result Body Mass Index 37.8 Tobacco/Smoking Status: Tobacco use Status Tobacco use date assessed 04/11/24 04/11/24 10:07 Patient Tobacco Use Status Never used Tobacco 04/11/24 10:07 e-Cigarette/Vaping Use Never Used 04/11/24 10:03 PHQ-9: PHQ-9 Score PHQ-9: Total score 1 04/11/24 10:07 Depression Screening Interpretation: Negative Thrive Assessment: Date of Thrive Assessment Date Thrive assessed 04/11/24 04/11/24 10:03 Currently or been in a relationship where the following occur: No concerns reported Const General: no acute distress HENMT Head: Yes normal to inspection Throat: Yes posterior oropharynx normal Neck Neck: Yes no lymphadenopathy and Yes supple Resp Effort & Inspection: normal respiratory effort Auscultation: clear to auscultation bilaterally Cardio Rhythm: regular rhythm Heart sounds: S1 normal heart sound present and S2 normal heart sound present GI Inspection: Yes normal to inspection Palpation (GI): Soft to palpation Percussion: Yes normal to percussion Auscultation: normal bowel sounds Coding Level of Care Code Est Pt Level 4 (66336) Diagnoses CKD stage 3a, GFR 45-59 ml/min N18.31 Diabetes type 2, controlled E11.9 A-fib I48.91 HTN (hypertension) I10 Additional Codes MAGDALENA-7 Assessment Billing - MAGDALENA-7 Assessment Tool: MAGDALENA-7 Assessment 06901 ([id number]) PHQ-9 - 25016 - PHQ-9 Billing: Yes ([id number]) Assessment & Plan Assessment & Plan (1) CKD stage 3a, GFR 45-59 ml/min: Code(s): N18.31 - Chronic kidney disease, stage 3a Category: Medical Plan: monitor renal function, avoid nephrotoxin (2) Diabetes type 2, controlled: Comment: A1C 6.5 06/23, diet controlled Code(s): E11.9 - Type 2 diabetes mellitus without complications Category: Medical Plan: check A1C, cont ADA diet (3) A-fib: Code(s): I48.91 - Unspecified atrial fibrillation Category: Medical Plan: cont Eliquis and Metoprolol (4) HTN (hypertension): Code(s): I10 - Essential (primary) hypertension Category: Medical Plan: cont meds
[2024-04-11 10:04] VITALS: BP 126/70; PULSE 80; RESP 20; TEMP 36.8; O2SAT 97; BMI 37.8
== END 2024-04-11 12:29 | disposition home or self-care (01) ==
PROVIDERS: PCP Internal Medicine; Visit Provider Internal Medicine
DX: N18.31 Chronic kidney disease, stage 3a (principal); E11.9 Type 2 diabetes mellitus without complications; I48.91 Unspecified atrial fibrillation; I10 Essential (primary) hypertension

== ENCOUNTER 2024-04-11 09:50 | Outpatient (REF) | payer OTHER, SELFPAY ==
[2024-04-11 13:14] LABS: MANUAL DIFF FLAG NO
[2024-04-11 13:32] LABS: Basophils Percent Auto 0.5 % (0-2); Eosinophils Absolute Auto 0.1 X10*3/uL (0.0-0.4); Hematocrit 36.7 % (37.0-47.0); Hemoglobin 11.8 g/dl (12.0-16.0); Imm Gran Abs Auto 0.02 X10*3/uL (0.00-0.03); Imm Gran Pct Auto 0.3 % (0.0-0.4); Lymphocytes Absolute Auto 2.3 X10*3/uL (1.2-4.9); Lymphocytes Percent Auto 35.1 % (20-40); Mean Corpuscular HGB Conc 32.2 g/dl (31.0-35.0); Mean Corpuscular Hemoglobin 29.1 pg (27.0-33.0); Mean Corpuscular Volume 90.6 fL (80.0-98.0); Mean Platelet Volume 10.1 fL (9.4-12.3); Monocytes Absolute Auto 0.6 X10*3/uL (0.1-1.2); Monocytes Percent Auto 9.8 % (2-11); Neutrophils Absolute Auto 3.4 x10*3/uL (2.0-8.3); Neutrophils Percent Auto 52.3 % (45-73); Platelet Count 333 X10*3/uL (160-400); Red Blood Count 4.05 X10*6/uL (4.20-5.50); Red Cell Distribution Width 12.4 % (11.0-16.0); White Blood Count 6.4 X10*3/uL (4.8-10.8)
[2024-04-11 13:36] LABS: Estimated Average Glucose 137 mg/dL; Hemoglobin A1C 145.7583 umol/L; Hemoglobin A1c % 6.4 % (<6.0); Total Hemoglobin (HGBA1C) 3125.8357 umol/L
[2024-04-11 13:46] LABS: Alanine Aminotransferase 26 U/L (0-31); Albumin Level 4.4 g/dL (3.5-5.0); Alkaline Phosphatase 60 U/L (39-117); Anion Gap 12 (12-20); Aspartate Amino Transferase 33 U/L (5-31); Bilirubin Total 0.6 mg/dL (0.0-1.0); Blood Urea Nitrogen 29 mg/dL (9-16); Carbon Dioxide 23 mmol/L (22-29); Chloride 107 mmol/L (96-108); Cholesterol 118 mg/dL (<200); Estimated Glomerular Filt Rate > 60; Glucose Fasting 108 mg/dL (60-99); HDL Cholesterol 36 mg/dL (>40); LDL Cholesterol Calculated 62 mg/dL (<100); Potassium 5.1 mmol/L (3.3-5.1); Sodium 137 mmol/L (135-145); Total Protein 8.8 g/dL (6.5-8.0); Triglycerides 103 mg/dL (<150)
[2024-04-11 14:04] LABS: Creatinine Urine 37.63 mg/dL; Microalbumin Urine < 5.0 mg/L
== END 2024-04-11 09:51 | disposition home or self-care (01) ==
LOC: HO.HMGCLDS 09:50
PROVIDERS: PCP Internal Medicine; Visit Provider Internal Medicine
DX: I12.9 Hypertensive chronic kidney disease with stage 1 through stage 4 chronic kidney disease, or unspecified chronic kidney disease (principal); E11.22 Type 2 diabetes mellitus with diabetic chronic kidney disease; N18.31 Chronic kidney disease, stage 3a; I48.0 Paroxysmal atrial fibrillation
CPT/HCPCS: 36415; 80053; 80061; 82043; 82570; 83036; 85025; 96127; 99212

== ENCOUNTER 2024-07-06 11:39 | Outpatient (AMB) | payer OTHER, SELFPAY ==
[2024-07-06 11:41] VITALS: BP 126/70; PULSE 73; RESP 18; TEMP 36.9; O2SAT 97; BMI 37.6
--- NOTE | 2024-07-06 11:41 | A.OFFPC_ITS ---
Vital Signs 07/06/24 11:41 Height 5 ft 4 in Weight 219 lb BMI 37.6 BP 126/70 Blood Pressure Location Lt brachial Position Sitting Respiration 18 Pulse 73 Pulse Source Pulse Oximeter Temp 98.5 F Temp Source Oral Pulse Oximetry (%) 97 Oxygen Delivery Method Room Air Intake Visit Reasons: Annual PE Intake Note: Pt is here today for PE. Allergies amoxicillin [AMOXICILLIN] Allergy (Unknown, Verified 07/06/24 11:41) RASH, allergy egg Allergy (Unknown, Verified 07/06/24 11:41) ITCHY THROAT/RASH Penicillins [PENICILLINS] Allergy (Unknown, Verified 07/06/24 11:41) RASH dronedarone Adverse Reaction (Intermediate, Verified 07/06/24 11:41) Abdominal Pain SHELLFISH Allergy (Severe, Uncoded 07/06/24 11:41) THROAT SWELLING Medication List - Last Reconciled 07/06/24 by Kathi Howell MD albuterol sulfate 90 mcg/actuation 2 puffs inhalation Q8H apixaban 5 mg PO BID blood sugar diagnostic (KeepIdeasTouch Ultra Test strips) DIRECTED EVERY DAY blood-glucose meter (KeepIdeasTouch Ultra2 Meter) As directed cholecalciferol (vitamin D3) 50 mcg (2 x 25 mcg (1,000 unit)) PO DAILY 90 days latanoprost (PF) 0.005% 1 drp ophthalmic (eye) DAILY metoprolol succinate ER 12.5 mg (1/2 x 25 mg) PO DAILY olmesartan 20 mg PO DAILY rosuvastatin 10 mg PO DAILY 90 days sertraline 25 mg PO DAILY timolol maleate 0.5% 1 drp ophthalmic-Right QAM Tobacco use date assessed: 07/06/24 Fall risk assessment: No Falls in past year Last assessed Fall Risk: 07/06/24 Dental Screening Dental Screen Date: 04/11/24 HPI Annual PE HPI Details Patient presents for physical. she denies complaints PFSH Medical History (Updated 07/06/24 @ 12:52 by Kathi Howell MD) Hypertension Hyperlipidemia PAF (paroxysmal atrial fibrillation) Annual physical exam Dupuytren's contracture of right hand Ankle pain, left Venous insufficiency of both lower extremities Diabetic eye exam Osteoarthritis Environmental and seasonal allergies History of mammogram Glaucoma Depression Vitamin D deficiency Surgical History H/O colonoscopy History of surgery History of prior ablation treatment History of laparoscopic cholecystectomy Family History Father Alzheimer's disease Dementia COPD (chronic obstructive pulmonary disease) HTN (hypertension) CVD (cardiovascular disease) Diabetes mellitus Mother Diabetes mellitus Liver cancer Maternal Grandfather No problems noted. Maternal Grandmother No problems noted. Paternal Grandfather No problems noted. Paternal Grandmother No problems noted. Brother No problems noted. Sister Diabetes mellitus Renal failure Sister No problems noted. Sister No problems noted. Sister No problems noted. Sister No problems noted. Son No problems noted. Son No problems noted. Son No problems noted. Daughter No problems noted. 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 1. Little interest or pleasure in doing things: not at all 2. Feeling down, depressed, or hopeless: not at all 3. Trouble falling or staying asleep, or sleeping too much: not at all 4. Feeling tired or having little energy: not at all 5. Poor appetite or overeating: not at all 6. Feeling bad about yourself - or that you are a failure or have let yourself or your family down: not at all 7. Trouble concentrating on things, such as reading the newspaper or watching te levision: not at all 8. Moving or speaking so slowly that other people could have noticed. Or the opposite - being so fidgety or restless that you have been moving around a lot more than usual: not at all 9. Thoughts that you would be better off or of hurting yourself in some way: not at all Total score: 0 Depression Screening Interpretation: Negative Depression Screening Done: Yes 56091 - PHQ-9 Billing: Yes Source: Developed by Drs. Moose Alberto, Carmela B.Christo Springer and colleagues, with an educational jefe from [employer]. Thrive Questionnaire Date Thrive assessed: 07/05/24 I am a: Patient What is your living situation today?: I have a steady place to live Within the past 12 months, did the food you bought not last and you didn't have the money to get more?: Never true Within the past 12 months, did you worry whether your food would run out before you got money to buy more?: Never true Do you have trouble paying for medicines?: No Do you have trouble getting transportation to medical appointments?: No Do you have trouble paying your heating and electricity bill?: No Do you have trouble taking care of your child, family member or friend?: No Do you have trouble with day-to-day activities such as bathing, preparing meals, shopping, managing finances, etc.?: No Are you currently unemployed and looking for a job?: No Are you interested in more education?: No Please select the resources that you would like help with: None Currently or been in a relationship where the following occur: No concerns reported THRIVE Score: 0 AUDIT C Alcohol Use Questionnaire (AUDIT-C) 1. How often do you have a drink containing alcohol?: Never 3. How often do you have six or more drinks on one occasion?: Never Total Score: 0 MAGDALENA-7 AMB Questionnaire MAGDALENA-7 Date MAGDALENA - 7 assessed: 07/06/24 Feeling nervous, anxious, or on edge: 1 = Several days Not being able to stop or control worryin = Several days Worrying too much about different things: 1 = Several days Trouble relaxin = Several days Being so restless that it is hard to sit still: 0 = Not at all Becoming easily annoyed or irritable: 0 = Not at all Feeling afraid as if something awful might happen: 1 = Several days Total MAGDALENA-7 score (0-4 normal; 5-9 mild; 10-14 moderate; 15-21 severe): 5 Source: Developed by Drs. Moose Alberto, Christo Montelongo and colleagues, with an educational jefe from [employer]. MAGDALENA-7 Assessment Billing MAGDALENA-7 Assessment Tool: MAGDALENA-7 Assessment 13432 Review of Systems Const All systems reviewed & are unremarkable except as noted in HPI and below Eyes Reports no additional complaints ENT Reports no additional complaints Card Reports no additional complaints Resp Reports no additional complaints GI Reports no additional complaints Reports no additional complaints Physical exam (Primary Care) Vital Signs: Last Vital Signs Temp 98.5 F 07/06/24 11:41 Pulse 73 07/06/24 11:41 Resp 18 07/06/24 11:41 BP 126/70 07/06/24 11:41 Pulse Ox 97 07/06/24 11:41 Oxygen Delivery Method Room Air 07/06/24 11:41 BMI result Body Mass Index 37.6 Tobacco/Smoking Status: Tobacco use Status Tobacco use date assessed 07/06/24 07/06/24 11:41 Patient Tobacco Use Status Never used Tobacco 07/06/24 11:41 e-Cigarette/Vaping Use Never Used 07/06/24 11:41 PHQ-9: PHQ-9 Score PHQ-9: Total score 0 07/06/24 11:50 Depression Screening Interpretation: Negative Thrive Assessment: Date of Thrive Assessment Date Thrive assessed 07/05/24 07/06/24 11:41 Currently or been in a relationship where the following occur: No concerns reported Const General: no acute distress HENMT Head: Yes normal to inspection Face and sinus: Yes normal facial exam Mouth: Normal oral and palatal mucosa present Eyes General: appearance normal, both eyes and all related structures Neck Neck: Yes supple Resp Effort & Inspection: normal respiratory effort Auscultation: clear to auscultation bilaterally Cardio Rhythm: regular rhythm Heart sounds: S1 normal heart sound present and S2 normal heart sound present GI Inspection: Yes normal to inspection Palpation (GI): Soft to palpation Percussion: Yes normal to percussion Auscultation: normal bowel sounds Coding Level of Care Code Est Pt Prev Care >65y(83172) Diagnoses CKD stage 3a, GFR 45-59 ml/min N18.31 Diabetes type 2, controlled E11.9 A-fib I48.91 Vitamin D deficiency E55.9 Anemia D64.9 Annual physical exam Z00.00 Hyperlipidemia E78.5 PAF (paroxysmal atrial fibrillation) I48.0 Hypertension I10 Additional Codes MAGDALENA-7 Assessment Billing - MAGDALENA-7 Assessment Tool: MAGDALENA-7 Assessment 45787 ([id number]) PHQ-9 - 99245 - PHQ-9 Billing: Yes ([id number]) Assessment & Plan Assessment & Plan (1) CKD stage 3a, GFR 45-59 ml/min: Code(s): N18.31 - Chronic kidney disease, stage 3a Category: Medical Plan: Monitor renal function avoid nephrotoxins (2) Diabetes type 2, controlled: Comment: A1C 6.5 06/23, diet controlled, Code(s): E11.9 - Type 2 diabetes mellitus without complications Category: Medical Plan: A1c is 6.4, ADA diet increase exercise weight loss discussed with the patient follow-up in 6 months with a fasting labs before (3) A-fib: Comment: ECHO 2022 nl EF, mildly dilated left atrium normal valves, Rate controlled on metoprolol and anticoagulated on Eliquis. Established with [facility] Code(s): I48.91 - Unspecified atrial fibrillation Category: Medical Plan: Continue metoprolol and Eliquis (4) Vitamin D deficiency: Code(s): E55.9 - Vitamin D deficiency, unspecified Category: Medical Plan: Continue vitamin (5) Anemia: Comment: mild chronic Code(s): D64.9 - Anemia, unspecified Category: Medical Plan: Monitor CBC check iron and B12 level (6) Annual physical exam: Comment: Patient declined Pneumovax 06/2024 Code(s): Z00.00 - Encounter for general adult medical examination without abnormal findings Category: Medical Plan: Well-balanced diet regular physical activity discussed with the patient (7) Hyperlipidemia: Code(s): E78.5 - Hyperlipidemia, unspecified Category: Medical Plan: Continue crestor (8) PAF (paroxysmal atrial fibrillation): Comment: f/u Dr. Marcos , CT coronary angiogram 02/21 25% RCA stenosis, proximal LAD small calcification, started on Crestor, Echo 2022 nl EF, nl valves, on metoprolol and Eliquis Code(s): I48.0 - Paroxysmal atrial fibrillation Category: Medical Plan: Continue current medications (9) Hypertension: Code(s): I10 - Essential (primary) hypertension Category: Medical Plan: Continue olmesartan Orders: Orders Lipid Panel 6 Months D64.9 - Anemia, unspecified, E11.9 - Type 2 diabetes mellitus without complications, E55.9 - Vitamin D deficiency, unspecified, I48.91 - Unspecified atrial fibrillation, N18.31 - Chronic kidney disease, stage 3a Vitamin D 25-OH Total 6 Months D64.9 - Anemia, unspecified, E11.9 - Type 2 diabetes mellitus without complications, E55.9 - Vitamin D deficiency, unspecified, I48.91 - Unspecified atrial fibrillation, N18.31 - Chronic kidney disease, stage 3a Comprehensive [place]. Panel Fast 6 Months D64.9 - Anemia, unspecified, E11.9 - Type 2 diabetes mellitus without complications, E55.9 - Vitamin D deficiency, unspecified, I48.91 - Unspecified atrial fibrillation, N18.31 - Chronic kidney disease, stage 3a Hemoglobin A1c 6 Months D64.9 - Anemia, unspecified, E11.9 - Type 2 diabetes mellitus without complications, E55.9 - Vitamin D deficiency, unspecified, I48.91 - Unspecified atrial fibrillation, N18.31 - Chronic kidney disease, stage 3a Complete Blood Count Auto Diff 6 Months D64.9 - Anemia, unspecified, E11.9 - Type 2 diabetes mellitus without complications, E55.9 - Vitamin D deficiency, unspecified, I48.91 - Unspecified atrial fibrillation, N18.31 - Chronic kidney disease, stage 3a IRON PROFILE 6 Months D64.9 - Anemia, unspecified, E11.9 - Type 2 diabetes mellitus without complications, E55.9 - Vitamin D deficiency, unspecified, I48.91 - Unspecified atrial fibrillation, N18.31 - Chronic kidney disease, stage 3a Vitamin B12 6 Months D64.9 - Anemia, unspecified, E11.9 - Type 2 diabetes mellitus without complications, E55.9 - Vitamin D deficiency, unspecified, I48.91 - Unspecified atrial fibrillation, N18.31 - Chronic kidney disease, stage 3a Immunofixation Pnl, Serum 6 Months D64.9 - Anemia, unspecified, E11.9 - Type 2 diabetes mellitus without complications, E55.9 - Vitamin D deficiency, unspecified, I48.91 - Unspecified atrial fibrillation, N18.31 - Chronic kidney disease, stage 3a
--- OUTSIDE RECORDS SUMMARY | 2024-07-06 13:05 | XMS_ITS | Patient Health Record ---
Author Organization [facility] Address [address] [place] [address] Care Team Providers Care Log Chipper Name Role Phone Kathi Howell MD Primary Care Provider Moose Vasquez Unavailable [phone] Allergies Allergen (clinical drug ingredient) Drug/Non Drug Allergy documented on EMR Reaction Allergy Type Onset Date Status Penicillin Unknown Drug Allergy Active Shellfish (FN) Shellfish-derived Products Unknown Drug Allergy Active Eggs or Egg-derived Products Unknown Drug Allergy Active amoxicillin Amoxicillin Unknown Drug Allergy Act lawrence Reason For Referral No Information Medications Medication SIG (Take, Route, Frequency, Duration) Notes Start Date End Date Status Vitamin D3 25 MCG (1000 UT) TAKE 2 CAPSULES BY MOUTH EVERY DAY Oral for 90 Active MiraLax (colon prep) 17 GM/SCOOP 1 238 Gm bottle mixed with Gatorade or Crystal Light Orally begin at 5:00 p.m. the day before the procedure for 1 day 09/27/2021 Active Olmesartan Medoxomil 20 MG Oral for 90 Active Dulcolax (colon prep) 5 MG take at 3:00 p.m and 7:00p.m. Orally two tablets twice a day for one day for 1 day 09/27/2021 Active Timolol Maleate 0.5 % Ophthalmic for 90 Active Albuterol Sulfate HFA 108 (90 Base) MCG/ACT INHALE 2 PUFFS BY MOUTH EVERY 8 HOURS Inhalation for 33 Active Sertraline HCl 25 MG Oral for 90 Active Immunizations Vaccine Route Administration Date Status Comme nts Influenza Unknown 09/26/2021 Refused Social History Tobacco Use: Social History Observation Description Date Details (start date - stop date) Never Smoker NA - NA Tobacco Use/Smoking Question Answer Notes Patient is a nonsmoker Alcohol Screen Question Answer Notes Did you have a drink contain ing alcohol in the past year? Yes How often did you have a dri nk containing alcohol in the past year? Never (0 point) How many drinks did you have on a typical day when you were drinking in the past year? 1 or 2 drinks (0 point) How often did you have 6 or more drinks on one occasion in the past year? Never (0 point) Points 0 Interpretation Negative Section Notes: Nonsmoker; no sig alcohol Problems Problem Type SNOMED Code ICD Code Onset Dates Problem Status W/U Status Risk Notes Problem Screening for malignant neoplasm of colon (164189581) Encounter for screening for malignant neoplasm of colon (Z12.11) Active confirmed Problem Pre-procedure evaluation check (907403834) Encounter for other preprocedural examination (Z01.818) Active confirmed Problem Diverticulosis of colon (197449512) Diverticulosis of colon (K57.30) Active confirmed Plan Of Treatment Future Test Test Name Order Date COLONOSCOPY 09/26/2021 Insurance Providers Payer Name Payer Address Payer Phone Subscriber Number Group Number Insured Name Patient Relationship to Insured Coverage Start Date Coverage End Date [facility] [address] [place] [address] [id number] KELLY FLOYD Self - patient is the insured Medical (General) History Medical History History ICD Code Denies [place],DM,CVA,renal disease 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
== END 2024-07-06 12:21 | disposition home or self-care (01) ==
LOC: HO.HMCC 11:40
PROVIDERS: PCP Internal Medicine; Visit Provider Internal Medicine
DX: Z00.00 Encounter for general adult medical examination without abnormal findings (principal); N18.31 Chronic kidney disease, stage 3a; E11.9 Type 2 diabetes mellitus without complications; I48.91 Unspecified atrial fibrillation; I48.0 Paroxysmal atrial fibrillation; E55.9 Vitamin D deficiency, unspecified; D64.9 Anemia, unspecified; E78.5 Hyperlipidemia, unspecified; I10 Essential (primary) hypertension

== ENCOUNTER → 2024-07-06 11:39 | Outpatient (BNVA) | payer OTHER, SELFPAY | PROVIDERS: PCP Internal Medicine; Visit Provider Internal Medicine | DX: Z00.00 Encounter for general adult medical examination without abnormal findings (principal); E11.22 Type 2 diabetes mellitus with diabetic chronic kidney disease; I12.9 Hypertensive chronic kidney disease with stage 1 through stage 4 chronic kidney disease, or unspecified chronic kidney disease; N18.31 Chronic kidney disease, stage 3a; I48.91 Unspecified atrial fibrillation; E55.9 Vitamin D deficiency, unspecified; D64.9 Anemia, unspecified; E78.5 Hyperlipidemia, unspecified; I48.0 Paroxysmal atrial fibrillation; Z79.01 Long term (current) use of anticoagulants; Z79.899 Other long term (current) drug therapy | CPT/HCPCS: 96127; 99397 ==

== ENCOUNTER 2024-07-11 13:19 | Outpatient (AMB) | payer OTHER, SELFPAY ==
--- OUTSIDE RECORDS SUMMARY | 2024-07-11 13:39 | XMS_ITS | Patient Health Record ---
Author Organization [facility] Address [address] [place] [address] Care Team Providers Care Imager Name Role Phone Kathi Howell MD Primary Care Provider Moose Vasquez Unavailable [phone] Allergies Allergen (clinical drug ingredient) Drug/Non Drug [...] Problem Screening for malignant neoplasm of colon (136921572) Encounter for screening for malignant neoplasm of colon (Z12.11) Active confirmed Problem Pre-procedure evaluation check (662578172) Encounter for other preprocedural examination (Z01.818) Active confirmed Problem Diverticulosis of colon (795083868) Diverticulosis of colon (K57.30) Active confirmed Plan Of Treatment Future Test Test Name Order Date COLONOSCOPY 09/26/2021 Insurance Providers Payer Name Payer Address Payer Phone Subscriber Number Group Number Insured Name Patient Relationship to Insured Coverage Start Date Coverage End Date [facility] [address] [place] [phone] [id number] KELLY FLOYD Self - patient is the insured Medical (General) History Medical History History ICD Code Denies [place],DM,CVA,renal disease 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
--- NOTE | 2024-07-11 13:40 | A.OFFVIS_ITS ---
Vital Signs 07/11/24 13:41 Height 5 ft 4 in Weight 219 lb 9.286 oz BMI 37.7 BP 122/66 Blood Pressure Location Rt brachial Position Sitting Pulse 60 Pulse Source Pulse Oximeter Intake Visit Reasons: 4m follow up Intake Note: 4 mth f/up Bull Driver Required: No Bull Driver Services: Bull Driver Offered & Declined Bull Driver Name: daughter Accompanied by: Daughter Allergies amoxicillin [AMOXICILLIN] Allergy (Unknown, Verified 07/06/24 11:41) RASH, allergy egg Allergy (Unknown, Verified 07/06/24 11:41) ITCHY THROAT/RASH Penicillins [PENICILLINS] Allergy (Unknown, Verified 07/06/24 11:41) RASH dronedarone Adverse Reaction (Intermediate, Verified 07/06/24 11:41) Abdominal Pain SHELLFISH Allergy (Severe, Uncoded 07/06/24 11:41) THROAT SWELLING Medication List - Last Reconciled 07/11/24 by Christian Marcos MD albuterol sulfate 90 mcg/actuation 2 puffs inhalation Q8H apixaban 5 mg PO BID blood sugar diagnostic (OneTouch Ultra Test strips) DIRECTED EVERY DAY blood-glucose meter (OneTouch Ultra2 Meter) As directed cholecalciferol (vitamin D3) 50 mcg (2 x 25 mcg (1,000 unit)) PO DAILY 90 days latanoprost (PF) 0.005% 1 drp ophthalmic (eye) DAILY metoprolol succinate ER 12.5 mg (1/2 x 25 mg) PO DAILY olmesartan 20 mg PO DAILY rosuvastatin 10 mg PO DAILY 90 days sertraline 25 mg PO DAILY timolol maleate 0.5% 1 drp ophthalmic-Right QAM HPI Comments Details: Pleasant 74-year-old female who is here for f/u. She was in the emergency department recently when she presented with palpitations and chest discomfort. She was noticed to be in AFib with RVR. She was given IV medications and broke out of atrial fibrillation with improvement in all her symptoms. She was subsequently discharged from the emergency department with apixaban and metoprolol. Since then she has been doing much better with some palpitations off and on. She is wearing a 3 day Holter monitor currently. She has been experiencing some shortness of breath and central chest heaviness which happens when she is doing activities. She is saying these symptoms started after the episode of atrial fibrillation. Physically she is not very active but does activities at home. She is overweight but has never had a sleep study. She is unsure whether she snores at night because she lives by herself. She is denying any significant daytime sleepiness or headaches. 11/24/22: She returns for follow-up. Holter monitor done for 3 days which did not show atrial fibrillation. She is getting some palpitations lasting for few seconds but no prolonged episodes. She is complaining of vertigo. She also has exertional dyspnea and some chest discomfort. She was referred for stress Mibi where she was able to exercise for 5 minute 31 seconds and achieved 86% of maximum predicted heart rate with moderate shortness of breath and chest heaviness. No ECG changes were noticed and nuclear perfusion imaging was read as normal. No bleeding concerns currently with Eliquis. 03/09/22: She returns for follow-up. She was referred for coronary CTA on last visit due to equivocal exercise stress test. Coronary CTA showed no evidence of hemodynamically significant coronary artery disease. 25% proximal RCA stenosis was noted. Small calcification distal portion of LAD and left circumflex artery was normal. Mildly enlarged main pulmonary artery and borderline a large mid ascending aorta 3.9 cm. She is denying chest discomfort or shortness of breath. Palpitation lasting for few seconds just like she reported in October 2022. No bleeding concerns. 08/31/23: She returns for follow-up. She said over the last 2 months she had 2 episodes of atrial fibrillation approximately 1 month apart lasting for few hours. These were self-limiting. She was in [place] and it was fairly hot there. She is denying any chest discomfort. She has some dyspnea with exertion which has been ongoing for long time. 12/09/2023: She is here for follow-up. She said she had an episode lasting for 6 hours of palpitations approximately 2 weeks ago. She also has been getting off and on palpitations here and there. She has some itchy feeling in her throat and has been coughing. It appears she has some sort of allergic issue going on. Not on lisinopril. 03/21/2024: On follow-up today she is doing well. She was started on Multaq on last visit but it appears she had some intolerance is due to Multaq. She started having abdominal pain and diarrhea after starting the medicine. She subsequently stopped the medication and abdominal discomfort went away. She said she started taking the half tablet of Toprol-XL and has been doing well since then. No further episodes of atrial fibrillation. 07/11/2024: She is here for follow-up. Denying palpitations. No bleeding with Eliquis. She is asking whether she can stop rosuvastatin. Her last LDL cholesterol is 62. She is prediabetic. [facility] Medical History (Updated 07/06/24 @ 12:52 by Kathi Howell MD) Hypertension Hyperlipidemia PAF (paroxysmal atrial fibrillation) Annual physical exam Dupuytren's contracture of right hand Ankle pain, left Venous insufficiency of both lower extremities Diabetic eye exam Osteoarthritis Environmental and seasonal allergies History of mammogram Glaucoma Depression Vitamin D deficiency Surgical History (Reviewed 07/11/24 @ 13:42 by Clair Escalona [facility]) H/O colonoscopy History of surgery History of prior ablation treatment History of laparoscopic cholecystectomy Family History (Reviewed 07/11/24 @ 13:42 by Clair Escalona [facility]) Father Alzheimer's disease Dementia COPD (chronic obstructive pulmonary disease) HTN (hypertension) CVD (cardiovascular disease) Diabetes mellitus Mother Diabetes mellitus Liver cancer Maternal Grandfather No problems noted. Maternal Grandmother No problems noted. Paternal Grandfather No problems noted. Paternal Grandmother No problems noted. Brother No problems noted. Sister Diabetes mellitus Renal failure Sister No problems noted. Sister No problems noted. Sister No problems noted. Sister No problems noted. Son No problems noted. Son No problems noted. Son No problems noted. Daughter No problems noted. 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 Cognitive needs: No Hearing needs: No Vision needs: No Review of Systems Const Denies chills, Denies fatigue, Denies fever(s), Denies frequent falls, Denies weakness, Denies weight gain and Denies weight loss ENT Denies dizziness Card Denies chest pain, Denies leg edema, Denies lightheadedness, Denies palpitations, Denies dyspnea and Denies dyspnea on exertion Resp Denies cough, Denies dyspnea and Denies dyspnea on exertion GI Denies hematochezia Musc Denies abnormal gait, Denies muscle weakness, Denies numbness, Denies radiating pain into limb and Denies tingling Neuro Denies abnormal gait, Denies dizziness, Denies frequent falls, Denies numbness, Denies tingling and Denies weakness Endo Denies fatigue and Denies palpitations Physical Exam Vital Signs: Last Vital Signs Pulse 60 07/11/24 13:41 BP 122/66 07/11/24 13:41 BMI result Body Mass Index 37.7 GENERAL APPEARANCE: in no acute distress, pleasant. NECK: no carotid bruit, no jugular venous distention. SKIN: no suspicious lesions, warm and dry. HEART: no murmurs, regular rate and rhythm. LUNGS: clear to auscultation bilaterally. ABDOMEN: soft, nontender. EXTREMITIES: no edema. PERIPHERAL PULSES: equal. NEUROLOGIC: No gross deficits, AAO X 3 Assessment & Plan Assessment & Plan (1) PAF (paroxysmal atrial fibrillation): Comment: f/u Dr. Marcos , CT coronary angiogram 02/21 25% RCA stenosis, proximal LAD small calcification, started on Crestor, Echo 2022 nl EF, nl valves, on metoprolol and Eliquis Code(s): I48.0 - Paroxysmal atrial fibrillation Category: Medical Plan Pleasant 74 year female who is here for follow-up. She has background of paroxysmal atrial fibrillation. She was initially started on Multaq but could not tolerate it. Since then she has not been on any antiarrhythmic therapy and has been maintaining sinus rhythm on her own. Continues to be stable at this point. Apixaban 5 mg twice a day for stroke prevention which should be continued. We discussed about continuing rosuvastatin give her her prediabetic status and previous LDL cholesterol is more than 100. She is also on a small dose of rosuvastatin 10 mg daily. Thank you for allowing me to participate in the care of your patient. Please feel free to contact me if you have any questions. Coding Level of Care Code Est Pt Level 4 (46792) Diagnoses PAF (paroxysmal atrial fibrillation) I48.0
[2024-07-11 13:41] VITALS: BP 122/66; PULSE 60; BMI 37.7
== END 2024-07-11 14:23 | disposition home or self-care (01) ==
LOC: HO.HCS 13:19
PROVIDERS: PCP Internal Medicine; Visit Provider Internal Medicine Cardiovascular Disease
DX: I48.0 Paroxysmal atrial fibrillation (principal)
CPT/HCPCS: 99214

== ENCOUNTER → 2024-07-11 13:19 | Outpatient (BNVA) | payer OTHER, SELFPAY | PROVIDERS: PCP Internal Medicine; Visit Provider Internal Medicine Cardiovascular Disease | DX: I48.0 Paroxysmal atrial fibrillation (principal) | CPT/HCPCS: 99212 ==

== ENCOUNTER 2024-11-22 08:15 | Outpatient (REF) | payer OTHER, SELFPAY ==
--- OUTSIDE RECORDS SUMMARY | 2024-11-22 09:08 | XMS_ITS | Patient Health Record ---
Author Organization [facility] Address [address] [place] [address] Care Team Providers Care Cold Strip Feeder Name Role Phone Kathi oHwell MD Primary Care Provider Moose Vasquez Unavailable [phone] Allergies Allergen (clinical drug ingredient) Drug/Non Drug [...] Problem Screening for malignant neoplasm of colon (977441677) Encounter for screening for malignant neoplasm of colon (Z12.11) Active confirmed Problem Pre-procedure evaluation check (193357699) Encounter for other preprocedural examination (Z01.818) Active confirmed Problem Diverticulosis of colon (881311677) Diverticulosis of colon (K57.30) Active confirmed Plan Of Treatment Future Test Test Name Order Date COLONOSCOPY 09/26/2021 Insurance Providers Payer Name Payer Address Payer Phone Subscriber Number Group Number Insured Name Patient Relationship to Insured Coverage Start Date Coverage End Date [facility] [address] [place] [address] [id number] KELLY FLOYD Self - patient is the insured Medical (General) History Medical History History ICD Code Denies [place],DM,CVA,renal disease 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
== END 2024-11-22 08:16 | disposition home or self-care (01) ==
LOC: HO.MAMMO 08:15
PROVIDERS: PCP Internal Medicine; Visit Provider Internal Medicine
DX: Z12.31 Encounter for screening mammogram for malignant neoplasm of breast (principal)
CPT/HCPCS: 77063; 77067

== ENCOUNTER → 2024-11-22 08:30 | Outpatient (BNV) | payer OTHER, SELFPAY | PROVIDERS: PCP Internal Medicine; Visit Provider Radiology Body Imaging | DX: Z12.31 Encounter for screening mammogram for malignant neoplasm of breast (principal) | CPT/HCPCS: 77063; 77067 ==

== ENCOUNTER 2024-12-05 08:48 | Outpatient (AMB) | payer OTHER, SELFPAY ==
[2024-12-05 08:58] VITALS: BP 110/72; PULSE 57; BMI 37.8
--- NOTE | 2024-12-05 08:58 | MHC.OFFVIS ---
Vital Signs 12/05/24 08:58 Height 5 ft 4 in Weight 220 lb 0.341 oz BMI 37.8 BP 110/72 Blood Pressure Location Lt brachial Position Sitting Pulse 57 Pulse Source Pulse Oximeter Intake Visit Reasons: 4 mth f/up Intake Note: 4 mth f/up Unemployment Benefits Claims Taker Required: Yes Unemployment Benefits Claims Taker Language: Front Office Representative Services: Unemployment Benefits Claims Taker Offered & Declined Unemployment Benefits Claims Taker Name: daughter Accompanied by: Daughter Allergies amoxicillin (AMOXICILLIN) Allergy (Unknown, Verified 07/06/24 11:41) RASH, allergy egg Allergy (Unknown, Verified 07/06/24 11:41) ITCHY THROAT/RASH Penicillins (PENICILLINS) Allergy (Unknown, Verified 07/06/24 11:41) RASH dronedarone Adverse Reaction (Intermediate, Verified 07/06/24 11:41) Abdominal Pain SHELLFISH Allergy (Severe, Uncoded 07/06/24 11:41) THROAT SWELLING Medication List - Last Reconciled 12/05/24 by Christian Marcos MD albuterol sulfate 90 mcg/actuation 2 puffs inhalation Q8H blood sugar diagnostic (OneTouch Ultra Test strips) DIRECTED EVERY DAY blood-glucose meter (OneTouch Ultra2 Meter) As directed cholecalciferol (vitamin D3) 50 mcg (2 x 25 mcg (1,000 unit)) PO DAILY 90 days Eliquis (apixaban) 5 mg PO BID NS latanoprost (PF) 0.005% 1 drp ophthalmic (eye) DAILY metoprolol succinate ER 12.5 mg (1/2 x 25 mg) PO DAILY olmesartan 20 mg PO DAILY rosuvastatin 10 mg PO DAILY sertraline 25 mg PO DAILY timolol maleate 0.5% 1 drp ophthalmic-Right QAM HPI Comments Details: Pleasant 74-year-old female who is here for f/u. She was in the emergency department recently when she presented with palpitations and chest discomfort. She was noticed to be in AFib with RVR. She was given IV medications and broke out of atrial fibrillation with improvement in all her symptoms. She was subsequently discharged from the emergency department with apixaban and metoprolol. Since then she has been doing much better with some palpitations off and on. She is wearing a 3 day Holter monitor currently. She has been experiencing some shortness of breath and central chest heaviness which happens when she is doing activities. She is saying these symptoms started after the episode of atrial fibrillation. Physically she is not very active but does activities at home. She is overweight but has never had a sleep study. She is unsure whether she snores at night because she lives by herself. She is denying any significant daytime sleepiness or headaches. 11/24/22: She returns for follow-up. Holter monitor done for 3 days which did not show atrial fibrillation. She is getting some palpitations lasting for few seconds but no prolonged episodes. She is complaining of vertigo. She also has exertional dyspnea and some chest discomfort. She was referred for stress Mibi where she was able to exercise for 5 minute 31 seconds and achieved 86% of maximum predicted heart rate with moderate shortness of breath and chest heaviness. No ECG changes were noticed and nuclear perfusion imaging was read as normal. No bleeding concerns currently with Eliquis. 03/09/22: She returns for follow-up. She was referred for coronary CTA on last visit due to equivocal exercise stress test. Coronary CTA showed no evidence of hemodynamically significant coronary artery disease. 25% proximal RCA stenosis was noted. Small calcification distal portion of LAD and left circumflex artery was normal. Mildly enlarged main pulmonary artery and borderline a large mid ascending aorta 3.9 cm. She is denying chest discomfort or shortness of breath. Palpitation lasting for few seconds just like she reported in October 2022. No bleeding concerns. 08/31/23: She returns for follow-up. She said over the last 2 months she had 2 episodes of atrial fibrillation approximately 1 month apart lasting for few hours. These were self-limiting. She was in [place] and it was fairly hot there. She is denying any chest discomfort. She has some dyspnea with exertion which has been ongoing for long time. 12/09/2023: She is here for follow-up. She said she had an episode lasting for 6 hours of palpitations approximately 2 weeks ago. She also has been getting off and on palpitations here and there. She has some itchy feeling in her throat and has been coughing. It appears she has some sort of allergic issue going on. Not on lisinopril. 03/21/2024: On follow-up today she is doing well. She was started on Multaq on last visit but it appears she had some intolerance is due to Multaq. She started having abdominal pain and diarrhea after starting the medicine. She subsequently stopped the medication and abdominal discomfort went away. She said she started taking the half tablet of Toprol-XL and has been doing well since then. No further episodes of atrial fibrillation. 07/11/2024: She is here for follow-up. Denying palpitations. No bleeding with Eliquis. She is asking whether she can stop rosuvastatin. Her last LDL cholesterol is 62. She is prediabetic. 12/05/2024: She is here for follow-up. She had 1 episode of palpitations last month which lasted all night. She said that she was under emotional stress due to some issues in the family. Next day she took her medicines and symptoms improved and she has not had any further episodes since then. She was previously on Multaq at 1 stage but did not tolerate the medicine. Overall she has been doing quite well over the last 2 years. [facility] Medical History Hypertension Hyperlipidemia PAF (paroxysmal atrial fibrillation) Annual physical exam Dupuytren's contracture of right hand Ankle pain, left Venous insufficiency of both lower extremities Diabetic eye exam Osteoarthritis Environmental and seasonal allergies History of mammogram Glaucoma Depression Vitamin D deficiency Surgical History H/O colonoscopy History of surgery History of prior ablation treatment History of laparoscopic cholecystectomy Family History Father Alzheimer's disease Dementia COPD (chronic obstructive pulmonary disease) HTN (hypertension) CVD (cardiovascular disease) Diabetes mellitus Mother Diabetes mellitus Liver cancer Maternal Grandfather No problems noted. Maternal Grandmother No problems noted. Paternal Grandfather No problems noted. Paternal Grandmother No problems noted. Brother No problems noted. Sister Diabetes mellitus Renal failure Sister No problems noted. Sister No problems noted. Sister No problems noted. Sister No problems noted. Son No problems noted. Son No problems noted. Son No problems noted. Daughter No problems noted. 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 Cognitive needs: No Hearing needs: No Vision needs: No Review of Systems Const Denies chills, Denies fatigue, Denies fever(s), Denies frequent falls, Denies weakness, Denies weight gain and Denies weight loss ENT Denies dizziness Card Denies chest pain, Denies leg edema, Denies lightheadedness, Denies palpitations, Denies dyspnea and Denies dyspnea on exertion Resp Denies cough, Denies dyspnea and Denies dyspnea on exertion GI Denies hematochezia Musc Denies abnormal gait, Denies muscle weakness, Denies numbness, Denies radiating pain into limb and Denies tingling Neuro Denies abnormal gait, Denies dizziness, Denies frequent falls, Denies numbness, Denies tingling and Denies weakness Endo Denies fatigue and Denies palpitations Physical Exam Vital Signs: Last Vital Signs Pulse 57 12/05/24 08:58 BP 110/72 12/05/24 08:58 BMI result Body Mass Index 37.8 GENERAL APPEARANCE: in no acute distress, pleasant. NECK: no carotid bruit, no jugular venous distention. SKIN: no suspicious lesions, warm and dry. HEART: no murmurs, regular rate and rhythm. Bradycardic. LUNGS: clear to auscultation bilaterally. ABDOMEN: soft, nontender. EXTREMITIES: no edema. PERIPHERAL PULSES: equal. NEUROLOGIC: No gross deficits, AAO X 3 Assessment & Plan Assessment & Plan (1) Hypertension: Code(s): I10 - Essential (primary) hypertension Category: Medical (2) PAF (paroxysmal atrial fibrillation): Comment: f/u Dr. Marcos , CT coronary angiogram 02/21 25% RCA stenosis, proximal LAD small calcification, started on Crestor, Echo 2022 nl EF, nl valves, on metoprolol and Eliquis Code(s): I48.0 - Paroxysmal atrial fibrillation Category: Medical Plan [age] year female who is here for follow-up. She has background history of paroxysmal atrial fibrillation. She was diagnosed 2 years ago and was on Multaq but could not tolerate the medicine. She was left total metoprolol and did quite well. One episode last month of palpitations which reminds her of episode of atrial fibrillation. She is saying she was under lot of emotional stress. Overall she has been quite stable over the last 2 years. I have advised the granddaughter that if she gets any further episode she should reach out to us. In that case I will arrange a cardiac event monitor for her. Continue same medications currently. She will see us back earlier this time and will see her back in 3 months. Thank you for allowing me to participate in the care of your patient. Please feel free to contact me if you have any questions. Coding Level of Care Code Est Pt Level 4 (35592) Diagnoses Hypertension I10 PAF (paroxysmal atrial fibrillation) I48.0
--- OUTSIDE RECORDS SUMMARY | 2024-12-05 09:36 | XMS_ITS | Patient Health Record ---
Author Organization [facility] Address [address] [place] [address] Care Team Providers Care Development Executive Name Role Phone Kathi Howell MD Primary Care Provider Moose Vasquez Unavailable [phone] Allergies Allergen (clinical drug ingredient) Drug/Non Drug [...] Problem Screening for malignant neoplasm of colon (079876514) Encounter for screening for malignant neoplasm of colon (Z12.11) Active confirmed Problem Pre-procedure evaluation check (346368174) Encounter for other preprocedural examination (Z01.818) Active confirmed Problem Diverticulosis of colon (762452021) Diverticulosis of colon (K57.30) Active confirmed Plan Of Treatment Future Test Test Name Order Date COLONOSCOPY 09/26/2021 Insurance Providers Payer Name Payer Address Payer Phone Subscriber Number Group Number Insured Name Patient Relationship to Insured Coverage Start Date Coverage End Date [facility] [address] [place] [address] [id number] KELLY FLOYD Self - patient is the insured Medical (General) History Medical History History ICD Code Denies AR,DM,CVA,renal disease 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
== END 2024-12-05 09:17 | disposition home or self-care (01) ==
LOC: HO.HCS 08:49
PROVIDERS: PCP Internal Medicine; Visit Provider Internal Medicine Cardiovascular Disease
DX: I10 Essential (primary) hypertension (principal); I48.0 Paroxysmal atrial fibrillation
CPT/HCPCS: 99214

== ENCOUNTER → 2024-12-05 08:48 | Outpatient (BNVA) | payer OTHER, SELFPAY | PROVIDERS: PCP Internal Medicine; Visit Provider Internal Medicine Cardiovascular Disease | DX: I10 Essential (primary) hypertension (principal); I48.0 Paroxysmal atrial fibrillation | CPT/HCPCS: 99212 ==

== ENCOUNTER 2024-12-27 07:48 | Outpatient (REF) | payer OTHER, SELFPAY ==
--- OUTSIDE RECORDS SUMMARY | 2024-12-27 07:53 | XMS_ITS | Patient Health Record ---
Author Organization [facility] Address [address] [place] [address] Care Team Providers Care Grit Removal Operator Name Role Phone Kathi Howell MD Primary Care Provider Moose Vasquez Unavailable [phone] Allergies Allergen (clinical drug ingredient) Drug/Non Drug [...] TAKE 2 CAPSULES BY MOUTH EVERY DAY Oral; Duration: 90 Active MiraLax (colon prep) 17 GM/SCOOP 1 238 Gm bottle mixed with Gatorade or Crystal Light Orally begin at 5:00 p.m. the day before the procedure; Duration: 1 day 09/27/2021 Activ e Olmesartan Medoxomil 20 MG Oral; Duration: 90 Active Dulcolax (colon prep) 5 MG take at 3:00 p.m and 7:00p.m. Orally two tablets twice a day for one day; Duration: 1 day 09/27/2021 Active Timolol Maleate 0.5 % Ophthalmic; Duration: 90 Active Albuterol Sulfate HFA 108 (90 Base) MCG/ACT INHALE 2 PUFFS BY MOUTH EVERY 8 HOURS Inhalation; Duration: 33 Active Sertraline HCl 25 MG Oral; Duration: 90 Active Immunizations Vaccine Route Administration Date [...] Problem Screening for malignant neoplasm of colon (848398615) Encounter for screening for malignant neoplasm of colon (Z12.11) Active confirmed Problem Pre-procedure evaluation check (552919709) Encounter for other preprocedural examination (Z01.818) Active confirmed Problem Diverticulosis of colon (906032148) Diverticulosis of colon (K57.30) Active confirmed Plan Of Treatment Future Test Test Name Order Date COLONOSCOPY 09/26/2021 Insurance Providers Payer Name Payer Address Payer Phone Subscriber Number Group Number Insured Name Patient Relationship to Insured Coverage Start Date Coverage End Date [facility] [address] [place] [address] [id number] KELLY FLOYD Self - patient is the insured Medical (General) History Medical History History ICD Code Denies [place],DM,CVA,renal disease 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
[2024-12-27 10:00] LABS: MANUAL DIFF FLAG NO
[2024-12-27 10:06] LABS: Hematocrit 34.1 % (37.0-47.0); Hemoglobin 11.0 g/dl (12.0-16.0); Imm Gran Abs Auto 0.02 X10*3/uL (0.00-0.03); Imm Gran Pct Auto 0.3 % (0.0-0.4); Lymphocytes Absolute Auto 2.9 X10*3/uL (1.2-4.9); Mean Corpuscular HGB Conc 32.3 g/dl (31.0-35.0); Mean Corpuscular Hemoglobin 29.1 pg (27.0-33.0); Mean Corpuscular Volume 90.2 fL (80.0-98.0); NRBC Abs Auto 0.000 X10*3/uL (0.0-0.012); NRBC Pct Auto 0.0 /100WBC (0.0-0.2); Platelet Count 313 X10*3/uL (160-400); Red Blood Count 3.78 X10*6/uL (4.20-5.50); White Blood Count 7.4 X10*3/uL (4.8-10.8)
[2024-12-27 10:30] LABS: Alanine Aminotransferase 16 U/L (0-31); Albumin Level 4.5 g/dL (3.5-5.0); Alkaline Phosphatase 68 U/L (39-117); Anion Gap 10 (12-20); Aspartate Amino Transferase 29 U/L (5-31); Blood Urea Nitrogen 21 mg/dL (9-16); Calcium 9.5 mg/dL (8.4-10.2); Carbon Dioxide 26 mmol/L (22-29); Chloride 109 mmol/L (96-108); Cholesterol 106 mg/dL (<200); Estimated Glomerular Filt Rate 49; HDL Cholesterol 40 mg/dL (>40); Iron 77 mcg/dL (30-160); Percent Iron Saturation 32 % (15-50); Potassium 4.0 mmol/L (3.3-5.1); Sodium 141 mmol/L (135-145); Total Iron Binding Capacity 238 mcg/dL (228-428); Total Protein 7.8 g/dL (6.5-8.0); Triglycerides 104 mg/dL (<150); Unsaturated Iron Binding 161 ug/dL
[2024-12-27 10:45] LABS: Vitamin B12 442 pg/mL (200-900)
== END 2024-12-27 07:49 | disposition home or self-care (01) ==
LOC: HO.HMGCLDS 07:48
PROVIDERS: PCP Internal Medicine; Visit Provider Internal Medicine
DX: Z01.84 Encounter for antibody response examination (principal); E11.22 Type 2 diabetes mellitus with diabetic chronic kidney disease; N18.31 Chronic kidney disease, stage 3a; D63.1 Anemia in chronic kidney disease; I48.91 Unspecified atrial fibrillation; E55.9 Vitamin D deficiency, unspecified
CPT/HCPCS: 36415; 80053; 80061; 82306; 82607; 82784; 83036; 83540; 85025; 86334

== ENCOUNTER 2025-01-02 11:07 | Outpatient (AMB) | payer OTHER, SELFPAY ==
--- NOTE | 2025-01-02 11:14 | MHC.PC.OV ---
Vital Signs 01/02/25 11:16 Height 5 ft 4 in Weight 218 lb BMI 37.4 BP 124/74 Blood Pressure Location Rt brachial Position Sitting Respiration 16 Pulse 61 Pulse Source Pulse Oximeter Temp 97.9 F Temp Source Oral Pulse Oximetry (%) 98 Oxygen Delivery Method Room Air Intake Visit Reasons: 6 month Intake Note: Pt is here today for 6 months follow up visit on labs. Allergies amoxicillin (AMOXICILLIN) Allergy (Unknown, Verified 01/02/25 11:17) RASH, allergy egg Allergy (Unknown, Verified 01/02/25 11:17) ITCHY THROAT/RASH Penicillins (PENICILLINS) Allergy (Unknown, Verified 01/02/25 11:17) RASH dronedarone Adverse Reaction (Intermediate, Verified 01/02/25 11:17) Abdominal Pain SHELLFISH Allergy (Severe, Uncoded 01/02/25 11:17) THROAT SWELLING Medication List - Last Reconciled 01/02/25 by Kathi Howell MD albuterol sulfate 90 mcg/actuation 2 puffs inhalation Q8H blood sugar diagnostic (PlatedTouch Ultra Test strips) DIRECTED EVERY DAY blood-glucose meter (PlatedTouch Ultra2 Meter) As directed cholecalciferol (vitamin D3) 75 mcg PO DAILY Eliquis (apixaban) 5 mg PO BID NS latanoprost (PF) 0.005% 1 drp ophthalmic (eye) DAILY metoprolol succinate ER 12.5 mg (1/2 x 25 mg) PO DAILY olmesartan 20 mg PO DAILY rosuvastatin 10 mg PO DAILY sertraline 25 mg PO DAILY timolol maleate 0.5% 1 drp ophthalmic-Right QAM Tobacco use date assessed: 01/02/25 Fall risk assessment: No Falls in past year Last assessed Fall Risk: 01/02/25 Dental Screening Dental Screen Date: 04/11/24 HPI 6 month HPI Details Patient presents for the follow-up of diet-controlled diabetes hyperlipidemia hypertension paroxysmal AFib. [facility] Medical History Hypertension Hyperlipidemia PAF (paroxysmal atrial fibrillation) Annual physical exam Dupuytren's contracture of right hand Ankle pain, left Venous insufficiency of both lower extremities Diabetic eye exam Osteoarthritis Environmental and seasonal allergies History of mammogram Glaucoma Depression Vitamin D deficiency Surgical History H/O colonoscopy History of surgery History of prior ablation treatment History of laparoscopic cholecystectomy Family History Father Alzheimer's disease Dementia COPD (chronic obstructive pulmonary disease) HTN (hypertension) CVD (cardiovascular disease) Diabetes mellitus Mother Diabetes mellitus Liver cancer Maternal Grandfather No problems noted. Maternal Grandmother No problems noted. Paternal Grandfather No problems noted. Paternal Grandmother No problems noted. Brother No problems noted. Sister Diabetes mellitus Renal failure Sister No problems noted. Sister No problems noted. Sister No problems noted. Sister No problems noted. Son No problems noted. Son No problems noted. Son No problems noted. Daughter No problems noted. 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 Cognitive needs: No Hearing needs: No Vision needs: No Questionnaire Thrive Questionnaire Date Thrive assessed: 07/05/24 I am a: Patient What is your living situation today?: I have a steady place to live Within the past 12 months, did the food you bought not last and you didn't have the money to get more?: Never true Within the past 12 months, did you worry whether your food would run out before you got money to buy more?: Never true Do you have trouble paying for medicines?: No Do you have trouble getting transportation to medical appointments?: No Do you have trouble paying your heating and electricity bill?: No Do you have trouble taking care of your child, family member or friend?: No Do you have trouble with day-to-day activities such as bathing, preparing meals, shopping, managing finances, etc.?: No Are you currently unemployed and looking for a job?: No Are you interested in more education?: No Please select the resources that you would like help with: None Currently or been in a relationship where the following occur: No concerns reported THRIVE Score: 0 MAGDALENA-7 AMB Questionnaire MAGDALENA-7 Date MAGDALENA - 7 assessed: 07/06/24 Source: Developed by Drs. Moose Alberto, Carmela Delgado, Christo Álvarez and colleagues, with an educational jefe from [employer] Review of Systems Const All systems reviewed & are unremarkable except as noted in HPI and below Eyes Reports no additional complaints ENT Reports no additional complaints Card Reports no additional complaints Resp Reports no additional complaints GI Reports no additional complaints Reports no additional complaints Physical exam (Primary Care) Vital Signs: Last Vital Signs Temp 97.9 F 01/02/25 11:16 Pulse 61 01/02/25 11:16 Resp 16 01/02/25 11:16 BP 124/74 01/02/25 11:16 Pulse Ox 98 01/02/25 11:16 Oxygen Delivery Method Room Air 01/02/25 11:16 BMI result Body Mass Index 37.4 Tobacco/Smoking Status: Tobacco use Status Tobacco use date assessed 01/02/25 01/02/25 11:20 Patient Tobacco Use Status Never used Tobacco 01/02/25 11:14 e-Cigarette/Vaping Use Never Used 01/02/25 11:14 Thrive Assessment: Date of Thrive Assessment Date Thrive assessed 07/05/24 01/02/25 11:14 Currently or been in a relationship where the following occur: No concerns reported Const General: no acute distress HENMT Head: Yes normal to inspection Mouth: Normal oral and palatal mucosa present Neck Neck: Yes supple Resp Effort & Inspection: normal respiratory effort Auscultation: clear to auscultation bilaterally Cardio Rhythm: regular rhythm Heart sounds: S1 normal heart sound present and S2 normal heart sound present GI Inspection: Yes normal to inspection Palpation (GI): Soft to palpation Coding Level of Care Code Est Pt Level 4 (28320) Diagnoses Hypertension I10 Diabetes type 2, controlled E11.9 Hyperlipidemia E78.5 PAF (paroxysmal atrial fibrillation) I48.0 Assessment & Plan Assessment & Plan (1) Hypertension: Code(s): I10 - Essential (primary) hypertension Category: Medical Plan: Continue current medications (2) Diabetes type 2, controlled: Comment: A1C 6.5 06/23, diet controlled, Code(s): E11.9 - Type 2 diabetes mellitus without complications Category: Medical Plan: A1c is 6.4. ADA diet regular exercise weight loss discussed with the patient. (3) Hyperlipidemia: Code(s): E78.5 - Hyperlipidemia, unspecified Category: Medical Plan: Continue statin (4) PAF (paroxysmal atrial fibrillation): Comment: f/u Dr. Marcos , CT coronary angiogram 02/21 25% RCA stenosis, proximal LAD small calcification, started on Crestor, Echo 2022 nl EF, nl valves, on metoprolol and Eliquis Code(s): I48.0 - Paroxysmal atrial fibrillation Category: Medical Plan: Continue current medications follow-up with Cardiology Orders: Orders Comprehensive [place]. Panel Fast 6 Months E11.9 - Type 2 diabetes mellitus without complications, E78.5 - Hyperlipidemia, unspecified, I10 - Essential (primary) hypertension Complete Blood Count Auto Diff 6 Months E11.9 - Type 2 diabetes mellitus without complications, E78.5 - Hyperlipidemia, unspecified, I10 - Essential (primary) hypertension Microalbumin, Random (w Creat) 6 Months E11.9 - Type 2 diabetes mellitus without complications, E78.5 - Hyperlipidemia, unspecified, I10 - Essential (primary) hypertension Lipid Panel 6 Months E11.9 - Type 2 diabetes mellitus without complications, E78.5 - Hyperlipidemia, unspecified, I10 - Essential (primary) hypertension Hemoglobin A1c 6 Months E11.9 - Type 2 diabetes mellitus without complications, E78.5 - Hyperlipidemia, unspecified, I10 - Essential (primary) hypertension Medications: New cholecalciferol (vitamin D3) 75 mcg PO DAILY 90 tabs 3RF Discontinued cholecalciferol (vitamin D3) Discontinued Reason: Doctor's Order 50 mcg (2 x 25 mcg (1,000 unit)) PO DAILY 90 days 180 caps 3RF
[2025-01-02 11:16] VITALS: BP 124/74; PULSE 61; RESP 16; TEMP 36.6; O2SAT 98; BMI 37.4
--- OUTSIDE RECORDS SUMMARY | 2025-01-02 14:06 | XMS_ITS | Patient Health Record ---
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 Name Role Phone Kathi Howell MD Primary Care Provider Moose Vasquez Unavailable [phone] Allergies Allergen (clinical drug ingredient) Drug/Non Drug [...] Problem Screening for malignant neoplasm of colon (576461304) Encounter for screening for malignant neoplasm of colon (Z12.11) Active confirmed Problem Pre-procedure evaluation check (042480658) Encounter for other preprocedural examination (Z01.818) Active confirmed Problem Diverticulosis of colon (669436831) Diverticulosis of colon (K57.30) Active confirmed Plan Of Treatment Future Test Test Name Order Date COLONOSCOPY 09/26/2021 Insurance Providers Payer Name Payer Address Payer Phone Subscriber Number Group Number Insured Name Patient Relationship to Insured Coverage Start Date Coverage End Date [facility] [address] [place] [address] [id number] KELLY FLOYD Self - patient is the insured Medical (General) History Medical History History ICD Code Denies UT,DM,CVA,renal disease 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
== END 2025-01-02 12:28 | disposition home or self-care (01) ==
LOC: HO.HMCC 11:08
PROVIDERS: PCP Internal Medicine; Visit Provider Internal Medicine
DX: I10 Essential (primary) hypertension (principal); E11.9 Type 2 diabetes mellitus without complications; E78.5 Hyperlipidemia, unspecified; I48.0 Paroxysmal atrial fibrillation

== ENCOUNTER → 2025-01-02 11:07 | Outpatient (BNVA) | payer OTHER, SELFPAY | PROVIDERS: PCP Internal Medicine; Visit Provider Internal Medicine | DX: E11.9 Type 2 diabetes mellitus without complications (principal); E78.5 Hyperlipidemia, unspecified; I10 Essential (primary) hypertension; I48.0 Paroxysmal atrial fibrillation | CPT/HCPCS: 99212 ==

== ENCOUNTER 2025-02-21 08:47 | Outpatient (REF) | payer OTHER, SELFPAY ==
[2025-02-21 14:07] LABS: Anion Gap 10 (12-20); Blood Urea Nitrogen 17 mg/dL (9-16); Calcium 9.6 mg/dL (8.4-10.2); Carbon Dioxide 25 mmol/L (22-29); Chloride 110 mmol/L (96-108); Estimated Glomerular Filt Rate 56; Potassium 4.3 mmol/L (3.3-5.1); Sodium 141 mmol/L (135-145)
== END 2025-02-21 08:48 | disposition home or self-care (01) ==
LOC: HO.HMGCLDS 08:47
PROVIDERS: PCP Internal Medicine; Visit Provider Internal Medicine
DX: N30.01 Acute cystitis with hematuria (principal); I12.9 Hypertensive chronic kidney disease with stage 1 through stage 4 chronic kidney disease, or unspecified chronic kidney disease; N18.31 Chronic kidney disease, stage 3a
CPT/HCPCS: 36415; 80048; 87086; 87088; 87186

== ENCOUNTER 2025-02-21 08:47 | Outpatient (AMB) | payer OTHER, SELFPAY ==
[2025-02-21 08:57] VITALS: BP 144/72; PULSE 63; TEMP 36.6; O2SAT 97; BMI 37.8
--- NOTE | 2025-02-21 08:57 | MHC.OFFWIV ---
Intake Vital Signs 02/21/25 08:57 Height 5 ft 4 in Weight 220 lb BMI 37.8 BP 144/72 H Blood Pressure Location Rt brachial Position Sitting Pulse 63 Pulse Source Pulse Oximeter Temp 98 F Temp Source Oral Pulse Oximetry (%) 97 Oxygen Delivery Method Room Air Intake Visit Reasons: EP Possible UTI Intake Note: Patient presents c/o urinary burning, pressure, urgency x4 days. Patient Tobacco Use Status: Never used Tobacco Allergies shellfish derived (shellfish) Allergy (Severe, Verified 02/21/25 09:05) throat swelling amoxicillin (AMOXICILLIN) Allergy (Unknown, Verified 02/21/25 09:05) RASH, allergy egg Allergy (Unknown, Verified 02/21/25 09:05) ITCHY THROAT/RASH Penicillins (PENICILLINS) Allergy (Unknown, Verified 02/21/25 09:05) RASH dronedarone Adverse Reaction (Intermediate, Verified 02/21/25 09:05) Abdominal Pain Medication List - Last Reconciled 02/21/25 by Aden rIaheta MD albuterol sulfate 90 mcg/actuation 2 puffs inhalation Q8H blood sugar diagnostic (Accu-Chek Guide test strips) test blood sugar once a day blood-glucose meter (Accu-Chek Guide Glucose Meter) Test blood sugar once a day cholecalciferol (vitamin D3) 75 mcg PO DAILY dorzolamide 2% 1 drp ophthalmic (eye) TID Eliquis (apixaban) 5 mg PO BID NS lancets (Accu-Chek Softclix Lancets) Test blood sugar once a day latanoprost (PF) 0.005% 1 drp ophthalmic (eye) DAILY metoprolol succinate ER 12.5 mg (1/2 x 25 mg) PO DAILY olmesartan 20 mg PO DAILY rosuvastatin 10 mg PO DAILY sertraline 25 mg PO DAILY HPI EP Possible UTI HPI Details History of Present Illness The patient is a 74 year old female presenting with urinary problems. Urinary Tract Infection: - The patient has been experiencing urinary problems since Thursday, characterized by burning on urination and pelvic pain. - She reports associated symptoms of intermittent nausea and feeling off-balance. - She denies any back pain, fever, chills, or vomiting. Hypertension: - The patient has a history of high blood pressure. - Her blood pressure was noted to be slightly high during the visit, and she reported not taking her blood pressure medication today. Chronic Kidney Disease: - The patient has compromised kidney function, with a GFR of 49 noted on labs from November. - Her kidney function was reportedly normal in April, indicating a decline. Problem List - Urinary Tract Infection - Hypertension - Chronic Kidney Disease Plan - A prescription for Nitrofurantoin 100 mg to be taken twice daily for 5 days will be sent to the patient's [facility] pharmacy for a bladder infection. - A urine sample will be sent for culture to ensure the prescribed antibiotic is appropriate; the antibiotic will be changed if necessary based on the results. - An order has been placed for a blood test to re-evaluate kidney function, and the patient was advised to have this done today. - The patient's next scheduled appointment with her regular doctor is on July 12. with PCP Review of Systems - General: No fever no chills - Neurological: No headaches no dizziness - Ear nose throat: No sore throat no hearing difficulty no ear pain - Cardiovascular: No syncope, no chest pain, no palpitations - Gastrointestinal: No nausea vomiting or diarrhea Physical Exam General: No acute distress HEENT: No acute findings Neck: Supple Respiratory system: Able to talk in full sentences, no audible wheeze Cardiovascular: S1-S2 Gastrointestinal: Pelvic pain mild with pressure over bladder, no back pain Extremities: No new findings [employer]: Alert awake oriented x3 motor intact, slight imbalance Skin: Normal turgor PFSH Medical History Hypertension Hyperlipidemia PAF (paroxysmal atrial fibrillation) Annual physical exam Dupuytren's contracture of right hand Ankle pain, left Venous insufficiency of both lower extremities Diabetic eye exam Osteoarthritis Environmental and seasonal allergies History of mammogram Glaucoma Depression Vitamin D deficiency Surgical History H/O colonoscopy History of surgery History of prior ablation treatment History of laparoscopic cholecystectomy Family History Father Alzheimer's disease Dementia COPD (chronic obstructive pulmonary disease) HTN (hypertension) CVD (cardiovascular disease) Diabetes mellitus Mother Diabetes mellitus Liver cancer Maternal Grandfather No problems noted. Maternal Grandmother No problems noted. Paternal Grandfather No problems noted. Paternal Grandmother No problems noted. Brother No problems noted. Sister Diabetes mellitus Renal failure Sister No problems noted. Sister No problems noted. Sister No problems noted. Sister No problems noted. Son No problems noted. Son No problems noted. Son No problems noted. Daughter No problems noted. 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 Cognitive needs: No Hearing needs: No Vision needs: No Physical Exam Vital Signs: Last Vital Signs Temp 98 F 02/21/25 08:57 Pulse 63 02/21/25 08:57 BP 144/72 H 02/21/25 08:57 Pulse Ox 97 02/21/25 08:57 Oxygen Delivery Method Room Air 02/21/25 08:57 BMI result Body Mass Index 37.8 Results AMB Urinalysis, Automated UA Leukoctes 125 Pamela/uL Last Edit by Sharon Gupta CMA on 02/21/25 09:14 UA Nitrite Negative Last Edit by Sharon Gupta CMA on 02/21/25 09:14 UA Urobilinogen 0.2 mg/dL Last Edit by Sharon Gupta CMA on 02/21/25 09:14 UA Protein 15 mg/dL Last Edit by Sharon Gupta CMA on 02/21/25 09:14 UA pH 6.0 Last Edit by Sharon Gupta CMA on 02/21/25 09:14 UA Blood 200 Kalia/uL Last Edit by Sharon Gupta CMA on 02/21/25 09:14 UA Specific [place] 1.015 Last Edit by Sharon Gupta CMA on 02/21/25 09:14 UA Ketone Negative Last Edit by Sharon Gupta CMA on 02/21/25 09:14 UA Bilirubin 0 mg/dL Last Edit by Sharon Gupta CMA on 02/21/25 09:14 UA Glucose 0 mg/dL Last Edit by Sharon Gupta CMA on 02/21/25 09:14 Results Reviewed Results Reviewed: Laboratory Last Values Urine pH (Auto) 6.0 02/21/25 09:12 Specific [place] (Auto) 1.015 02/21/25 09:12 Urine Protein (Auto) 15 mg/dL 02/21/25 09:12 Glucose (UA)(Auto) 0 mg/dL 02/21/25 09:12 Urine Ketones (Auto) Negative 02/21/25 09:12 Urine Blood (Auto) 200 Kalia/uL H* 02/21/25 09:12 Urine Nitrite (Auto) Negative 02/21/25 09:12 Urine Bilirubin (Auto) 0 mg/dL 02/21/25 09:12 Urine Urobilinogen (Auto) 0.2 mg/dL 02/21/25 09:12 Leukocyte Esterase (Auto) 125 Pamela/uL H* 02/21/25 09:12 Assessment & Plan Assessment & Plan (1) Acute cystitis with hematuria: Code(s): N30.01 - Acute cystitis with hematuria (2) CKD stage 3a, GFR 45-59 ml/min: Code(s): N18.31 - Chronic kidney disease, stage 3a (3) Hypertension: Code(s): I10 - Essential (primary) hypertension Qualifiers: Hypertension type: primary hypertension Qualified Code(s): I10 - Essential (primary) hypertension Plan Problem List - Urinary Tract Infection - Hypertension - Chronic Kidney Disease Plan - A prescription for Nitrofurantoin 100 mg to be taken twice daily for 5 days will be sent to the patient's [facility] pharmacy for a bladder infection. - A urine sample will be sent for culture to ensure the prescribed antibiotic is appropriate; the antibiotic will be changed if necessary based on the results. - An order has been placed for a blood test to re-evaluate kidney function, and the patient was advised to have this done today. - The patient's next scheduled appointment with her regular doctor is on July 12. with PCP Orders: Orders AMB Urinalysis Automated Today Z13.9 - Encounter for screening, unspecified Basic Metabolic Panel Today N18.31 - Chronic kidney disease, stage 3a Urine Culture Today N30.01 - Acute cystitis with hematuria Medications: New nitrofurantoin monohyd/m-cryst 100 mg (Macrobid) must administer with a meal/food 100 mg PO Q12H 10 caps 0RF 5 days Coding Level of Care Code Est Pt Level 4 (36923) Diagnoses Acute cystitis with hematuria N30.01 CKD stage 3a, GFR 45-59 ml/min N18.31 Primary hypertension I10 Hypertension type: primary hypertension
--- OUTSIDE RECORDS SUMMARY | 2025-02-21 09:04 | XMS_ITS | Patient Health Record ---
Author Organization 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 Name Role Phone Kathi Howell MD Primary Care Provider Moose Vasquez Unavailable [phone] Allergies Allergen (clinical drug ingredient) Drug/Non Drug Allergy documented on EMR Reaction Allergy Type Onset Date Status amoxicillin Amoxicillin Unknown Drug Allergy Act lawrence Eggs or Egg-derived Products Unknown Drug Allergy Active Shellfish (FN) Shellfish-derived Products Unknown Drug Allergy Active Penicillin Unknown Drug Allergy Active Reason For Referral No Information Medications Medication SIG (Take, Route, Frequency, Duration) Notes Start Date End Date Status Vitamin D3 25 MCG (1000 UT) Capsule TAKE 2 CAPSULES BY MOUTH EVERY DAY Oral; Duration: 90 Active MiraLax (colon prep) 17 GM/SCOOP Powder 1 238 Gm bottle mixed with Gatorade or Crystal Light Orally begin at 5:00 p.m. the day before the procedure; Duration: 1 day 09/27/2021 Activ e Olmesartan Medoxomil 20 MG Tablet Oral; Duration: 90 Active Dulcolax (colon prep) 5 MG Tablet Delayed Release take at 3:00 p.m and 7:00p.m. Orally two tablets twice a day for one day; Duration: 1 day 09/27/2021 Active Timolol Maleate 0.5 % Solution Ophthalmic; Duration: 90 Act lawrence Albuterol Sulfate HFA 108 (90 Base) MCG/ACT Aerosol Solution INHALE 2 PUFFS BY MOUTH EVERY 8 HOURS Inhalation; Duration: 33 Active Sertraline HCl 25 MG Tablet Oral; Duration: 90 Active Immunizations Vaccine Route Administration Date Status Comme nts Influenza Unknown 09/26/2021 Refused Social History Tobacco Use: Social History Observation Description Date Details (start date - stop date) Never Smoker NA - NA Social History Drugs/Alcohol: Social Info Question Answer Notes Alcohol Screen Did you have a drink containing alcohol in the past year? Yes How often did you have a drink containing alcohol in the past year? Never (0 point) How many drinks did you have on a typical day when you were drinking in the past year? 1 or 2 drinks (0 point) How often did you have 6 or more drinks on one occasion in the past year? Never (0 point) Points 0 Interpretation Negative Tobacco Use: Social Info Question Answer Notes Tobacco Use/Smoking Patient is a nonsmoker Additional Details Category Social Info Options Details Miscellaneous: Marital status: single Occupation: retired Section Notes: Nonsmoker; no sig alcohol Problems Problem Type SNOMED Code ICD Code Onset Dates Problem Status W/U Status Risk Notes Problem Screening for malignant neoplasm of colon (200634507) Encounter for screening for malignant neoplasm of colon (Z12.11) Active confirmed Problem Pre-procedure evaluation check (313683105) Encounter for other preprocedural examination (Z01.818) Active confirmed Problem Diverticulosis of colon (234635722) Diverticulosis of colon (K57.30) Active confirmed Plan Of Treatment Future Test Test Name Order Date COLONOSCOPY 09/26/2021 Insurance Providers Payer Name Payer Address Payer Phone Subscriber Number Group Number Insured Name Patient Relationship to Insured Coverage Start Date Coverage End Date [facility] [address] [place] [address] [id number] KELLY FLOYD Self - patient is the insured Medical (General) History Medical History History ICD Code Denies MD,DM,CVA,renal disease 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
== END 2025-02-21 09:23 | disposition home or self-care (01) ==
PROVIDERS: PCP Internal Medicine; Visit Provider Internal Medicine
DX: N30.01 Acute cystitis with hematuria (principal); N18.31 Chronic kidney disease, stage 3a; I10 Essential (primary) hypertension; Z13.9 Encounter for screening, unspecified